=== PATIENT | female | born 1965 | race African-American/Black ===

== ENCOUNTER 2017-03-31 17:50 | Emergency (ER) | payer SELFPAY ==
[2017-03-31 18:00] VITALS: BP 141/79
--- NOTE | 2017-03-31 20:26 | ER Document Report ---
HPI - HPI Pain Level: 3 Context: 52 yo female c/o intermittant left ear pain x 2 mos. also c/o left lower tooth pain. no fever Associated Symptoms: Headache. denies: Fever Exacerbated by: Denies Relieved by: Denies Similar symptoms previously: Yes Recently seen / treated by doctor: Yes - [facility] - REPRODUCTIVE Reproductive: DENIES: : - DERM Skin Color: Normal Past Medical History - General Information source: Patient - Social History Smoking Status: Never Smoker Chew tobacco use (# tins/day): No Frequency of alcohol use: None Drug Abuse: None Lives with: Family Family History: CVA, DM, Hyperlipidemia, Hypertension, Malignancy - Father, Thyroid Disfunction Patient has suicidal ideation: No Patient has homicidal ideation: No - Past Medical History Cardiac Medical History: Reports: Hx Hypercholesterolemia, Hx Hypertension Denies: Hx Heart Murmur Pulmonary Medical History: Reports: Hx Bronchitis Denies: Hx Tuberculosis Neurological Medical History: Reports: Hx Seizures - last 11/2016 Endocrine Medical History: Reports: Hx Diabetes Mellitus Type 2 Renal/ Medical History: Denies: Hx Peritoneal Dialysis Musculoskeltal Medical History: Reports Hx Arthritis Psychiatric Medical History: Reports: Hx Anxiety Denies: Hx Depression Past Surgical History: Reports: Hx Section, Hx Orthopedic Surgery - r shoulder w hardware, Hx Tonsillectomy - Immunizations Immunizations up to date: Yes Hx Diphtheria, Pertussis, Tetanus Vaccination: Yes - 2015 [employer] Provider Document - CONSTITUTIONAL Agree With Documented VS: Yes Exam Limitations: No Limitations General Appearance: WD/WN, No Apparent Distress - INFECTION CONTROL TRAVEL OUTSIDE OF THE [place] IN LAST 30 DAYS: No COUNTRY TRAVEL[facility] HEENT: Atraumatic, PERRLA Mouth Diagram: 1 - pain. no gingival edema appreciated Notes: left EAC mildly edematous. + preauricular tenderness. no postauricular pain. mastoid nontender. left TM dull with + effusion - NECK Neck: Normal Inspection, Supple - RESPIRATORY Respiratory: Breath Sounds Normal, No Respiratory Distress O2 Sat by Pulse Oximetry: 98 - CARDIOVASCULAR Cardiovascular: Regular Rate, Regular Rhythm Course - Re-evaluation Re-evalutation: 03/31/17 20:26 blood pressure slightly elevated. pthas hx/o HTN. taking meds as prescribed . denies JOHNSON, dizziness, chest pain or shortness of breath - Vital Signs Vital signs: Temp Pulse Resp BP Pulse Ox 98.5 F 77 18 141/79 H 98 03/31/17 17:59 03/31/17 17:59 03/31/17 17:59 03/31/17 17:59 03/31/17 17:59 Discharge - Discharge Clinical Impression: Left serous otitis media, Toothache Left otitis externa Qualifiers: Otitis externa type: unspecified type Chronicity: acute Qualified Code(s): H60.502 - Unspecified acute noninfective otitis externa, left ear Condition: Stable Disposition: HOME, SELF-CARE Instructions: Use of Ear Drops ([facility]), Otitis Externa ([facility]), Toothache ([facility]), Antibiotic Therapy ([facility]) Additional Instructions: take medications as prescribed keep ear completely dry x 7 days follow up with primary care if symptoms persist Prescriptions: Neomy Sulf/Polymyx B Sulf/Hc [Cortisporin Otic Susp] 1 drop LFT_EAR TID #1 bottle Penicillin V Potassium [Penicillin Vk 500 mg Tablet] 500 mg PO BID #20 tablet Forms: Elevated Blood Pressure
[2017-03-31] MEDS ORDERED: HYDROCODONE/ACETAMINOPHEN 5-325 MG 6 TAB/DSPK PO PRN (20:27)
== END 2017-03-31 21:10 | disposition home or self-care (01) ==
LOC: ER 17:50
DX: H65.92 Unspecified nonsuppurative otitis media, left ear (principal); H60.502 Unspecified acute noninfective otitis externa, left ear; H92.02 Otalgia, left ear; R51 Headache; K08.89 Other specified disorders of teeth and supporting structures
CPT/HCPCS: 99282

== ENCOUNTER 2017-05-09 11:14 | Emergency (ER) | payer SELFPAY ==
[2017-05-09 11:23] VITALS: BP 153/77
--- NOTE | 2017-05-09 11:59 | ER Document Report ---
HPI - HPI Pain Level: 5 Notes: Patient is a 52-year-old female presents the ED complaining of right forearm pain 6 weeks. Patient states that the pain is sore and worsened with movement and touch. Patient states that on occasion she will drop a plate because of the soreness in her forearm. Patient states that she did start mopping a lot at worship prior to the development of the pain. Which also has been increasing her discomfort. She denies any numbness or tingling. She denies any drug allergies, smoking, or any IV drug use. She has a significant past medical history for hypertension, seizures, diabetes, and cholesterol. Her PCM is [facility]. The pain does not radiate otherwise. She has not been using any conservative measures for her symptoms. Denies any fever, headache, URI, sore throat, chest pain, palpitations, syncope, dyspnea on exertion, cough, wheeze, shortness of breath, abdominal pain, nausea/vomiting/diarrhea, dysuria, muscle paralysis/weakness, or rash. Denies any recent travel, illness, or sick contacts. - ROS Notes: REVIEW OF SYSTEMS: CONSTITUTIONAL : Denies fever, chills, or sweats. Denies recent illness. EENT: Denies eye, ear, throat, or mouth pain or symptoms. Denies nasal or sinus congestion or discharge. Denies throat, tongue, or mouth swelling or difficulty swallowing. CARDIOVASCULAR: Denies chest pain. Denies palpitations or racing or irregular heart beat. Denies ankle edema. RESPIRATORY: Denies cough, cold, or chest congestion. Denies shortness of breath, difficulty breathing, or wheezing. GASTROINTESTINAL: Denies abdominal pain or distention. Denies nausea, vomiting , or diarrhea. Denies blood in vomitus, stools, or per rectum. Denies black, tarry stools. Denies constipation. GENITOURINARY: Denies difficulty urinating, painful urination, burning, frequency, blood in urine, or discharge. MUSCULOSKELETAL: see hpi SKIN: Denies rash, lesions or sores. NEUROLOGICAL: Denies confusion or altered mental status. Denies passing out or loss of consciousness. Denies dizziness or lightheadedness. Denies headache. Denies weakness or paralysis or loss of use of either side. Denies problems with gait or speech. Denies sensory loss, numbness, or tingling. ALL OTHER SYSTEMS REVIEWED AND NEGATIVE. Dictation was performed using [employer] voice recognition software - CARDIOVASCULAR Cardiovascular: DENIES: Chest pain - REPRODUCTIVE Reproductive: DENIES: : - DERM Skin Color: Normal Past Medical History - Social History Smoking Status: Never Smoker Chew tobacco use (# tins/day): No Frequency of alcohol use: None Drug Abuse: None Family History: CVA, DM, Hyperlipidemia, Hypertension, Malignancy - Father, Thyroid Disfunction Patient has suicidal ideation: No Patient has homicidal ideation: No - Past Medical History Cardiac Medical History: Reports: Hx Hypercholesterolemia, Hx Hypertension Denies: Hx Heart Murmur Pulmonary Medical History: Reports: Hx Bronchitis Denies: Hx Tuberculosis Neurological Medical History: Reports: Hx Seizures - last 11/2016 Endocrine Medical History: Reports: Hx Diabetes Mellitus Type 2 Renal/ Medical History: Denies: Hx Peritoneal Dialysis Musculoskeltal Medical History: Reports Hx Arthritis Psychiatric Medical History: Reports: Hx Anxiety Denies: Hx Depression Past Surgical History: Reports: Hx Section, Hx Orthopedic Surgery - r shoulder w hardware, Hx Tonsillectomy - Immunizations Immunizations up to date: Yes Hx Diphtheria, Pertussis, Tetanus Vaccination: Yes - 2015 [facility] Provider Document - CONSTITUTIONAL Agree With Documented VS: Yes Notes: PHYSICAL EXAMINATION: GENERAL: Well-appearing, well-nourished and in no acute distress. NECK: Normal range of motion, supple without lymphadenopathy. Non-tender. Spurling negative. LUNGS: Breath sounds clear to auscultation bilaterally and equal. No wheezes rales or rhonchi. HEART: Regular rate and rhythm without murmurs, rubs, gallops. Musculoskeletal: Rt forearm: FROM to passive/active. Strength 5+/5. + tenderness to resisted supination and wrist extension. + tenderness to palp of lateral epicondyle muscles. No bony tenderness. N/V intact distal. Tinel/ phalen negative. Extremities: No cyanosis, clubbing, or edema b/l. Peripheral pulses 2+. Capillary refill less than 2 seconds. NEUROLOGICAL: Normal speech, normal gait. Normal sensory, motor exams PSYCH: Normal mood, normal affect. SKIN: Warm, Dry, normal turgor, no rashes or lesions noted. - INFECTION CONTROL TRAVEL OUTSIDE OF THE [place] IN LAST 30 DAYS: No COUNTRY TRAVELED TO/FROM: [facility] - RESPIRATORY O2 Sat by Pulse Oximetry: 98 Course - Re-evaluation Re-evalutation: 05/09/17 12:40 Patient is an afebrile, well-hydrated, 52-year-old female presents the ED with right lateral epicondylitis based on H&P today. Vitals are stable. PE otherwise unremarkable with a low suspicion for any sepsis, cellulitis, abscess , or fracture. Low suspicion for any other emergent condition at this time. Reviewed with the patient the etiology and multiple treatment options. Patient opted for the Kenalog lidocaine injection. Pt had improvement of her symptoms s /p injections confirming correct placement. I will also send her home with Voltaren gel to use as directed. Conservative measures otherwise as reviewed. Recheck with her PCM this week. Consider consult with physical therapy/ orthopedics for ongoing worsening symptoms. Return to the ED with any worsening /concerning symptoms otherwise as reviewed in discharge. Patient is in agreement. - Vital Signs Vital signs: Temp Pulse Resp BP Pulse Ox 98.3 F 67 16 153/77 H 98 05/09/17 11:19 05/09/17 11:19 05/09/17 11:19 05/09/17 11:19 05/09/17 11:19 Procedures - Additional Procedures Trigger point injection Time performed: 12:30 Additional Procedures: Other - Kenalog/lidocaine injection to lateral epicondylitis Notes: 05/09/17 12:35 Verbal/written consent obtained Risks and benefits reviewed thoroughly prior to consent Procedure reviewed Skin was cleansed with iodine and alcohol swabs 40 mg of Kenalog mixed with 1.5 mL's of lidocaine 1% without epi injected into the lateral epicondyle area (rt) utliizing a 22g 1.5" needle and 5cc syringe Patient noted improvement in her symptoms Patient tolerated procedure well No complications No blood loss Discharge - Discharge Clinical Impression: Lateral epicondylitis of elbow Qualifiers: Laterality: right Qualified Code(s): M77.11 - Lateral epicondylitis, right elbow Condition: Stable Disposition: HOME, SELF-CARE Additional Instructions: Rest, Ice, Compression, Elevation Tylenol/ibuprofen as needed Light stretches daily Strength exercises as able Moist heat and massage may help F/u with your PCP this week for a recheck Consider consult(s) with Orthopedics/physical therapy for ongoing/worsening symptoms Return to the ED with any worsening pain, swelling, numbness/tingling, muscle weakness, abscess, purulent discharge, red streaks, redness, chest pain, palpitations, shortness of breath, wheezing, abdominal pain, nausea/vomiting/ diarrhea, fever, or any other worsening/concerning symptoms as needed. Prescriptions: Diclofenac Sodium [Voltaren] 4 gm TP QID PRN #100 gel..gm. PRN Reason: Forms: Elevated Blood Pressure Referrals: [facility] [Provider Group] - Follow up as needed [facility] [Provider Group] - Follow up as needed
[2017-05-09] MEDS ORDERED: TRIAMCINOLONE ACETONIDE INJ 40 MG/1 ML VIAL INJ ONE (12:15)
[2017-05-09] MEDS ORDERED: LIDOCAINE 1% INJ-PF (10 MG/ML) 30 ML SDV INJ ONE (12:16)
== END 2017-05-09 12:54 | disposition home or self-care (01) ==
LOC: ER 11:14
PROC: 3E0233Z Introduction of Anti-inflammatory into Muscle, Percutaneous Approach (ICD-10-PCS; principal; 2017-05-09)
PROC: 3E023BZ Introduction of Anesthetic Agent into Muscle, Percutaneous Approach (ICD-10-PCS; 2017-05-09)
DX: M77.11 Lateral epicondylitis, right elbow (principal); E78.00 Pure hypercholesterolemia, unspecified; I10 Essential (primary) hypertension; E11.9 Type 2 diabetes mellitus without complications
CPT/HCPCS: 99283

== ENCOUNTER 2017-06-07 14:16 | Emergency (ER) | payer SELFPAY ==
[2017-06-07 14:30] VITALS: BP 183/89
[2017-06-07] MEDS ORDERED: LIDOCAINE 2% VISCOUS SOLN 20 ML UDCUP PO ONE (15:17)
[2017-06-07] MEDS ORDERED: PENICILLIN V POTASSIUM 500 MG TABLET PO ONE (15:17)
--- NOTE | 2017-06-07 15:25 | ER Document Report ---
ED Oral Problem - General Chief Complaint: Toothache Stated Complaint: TOOTH/MOUTH PAIN Time Seen by Provider: 06/07/17 14:52 Mode of Arrival: Ambulatory Information source: Patient Notes: 52-year-old female presents to ED for dental pain to the left lower jaw tooth # 18. She states she has had pain for 2 days. She had a bad tooth for a while but has not been able to care for it as she does not have any insurance or any money. TRAVEL OUTSIDE OF THE [place] IN LAST 30 DAYS: No COUNTRY TRAVELED TO/FROM: [facility] Patient complains to provider of: Toothache Onset: Other - 2 days Onset: Gradual Quality of pain: Sharp, Throbbing Severity: Severe Pain Level: 5 Swollen jaw/face: Mild Associated symptoms: Jaw pain, Toothache Worsened by: Cold Relieved by: Nothing Similar symptoms previously: Yes Recently seen / treated by doctor/dentist: No - Related Data Allergies/Adverse Reactions: No Known Allergies Allergy (Verified 03/31/17 17:54) Past Medical History - General Information source: Patient - Social History Smoking Status: Never Smoker Cigarette use (# per day): No Chew tobacco use (# tins/day): No Smoking Education Provided: No Frequency of alcohol use: None Drug Abuse: None Lives with: Family Family History: CVA, DM, Hyperlipidemia, Hypertension, Malignancy - Father, Thyroid Disfunction Patient has suicidal ideation: No Patient has homicidal ideation: No - Past Medical History Cardiac Medical History: Reports: Hx Hypercholesterolemia, Hx Hypertension Pulmonary Medical History: Reports: Hx Bronchitis Neurological Medical History: Reports: Hx Seizures - last 11/2016 Endocrine Medical History: Reports: Hx Diabetes Mellitus Type 2 Renal/ Medical History: Reports: Hx Peritoneal Dialysis Malignancy Medical History: Reports: None GI Medical History: Reports: None Musculoskeltal Medical History: Reports Hx Arthritis Skin Medical History: Reports None Psychiatric Medical History: Reports: Hx Anxiety Traumatic Medical History: Reports: None Infectious Medical History: Reports: None Past Surgical History: Reports: Hx Section, Hx Orthopedic Surgery - r shoulder w hardware, Hx Tonsillectomy - Immunizations Immunizations up to date: Yes Hx Diphtheria, Pertussis, Tetanus Vaccination: Yes - 2015 Review of Systems - Review of Systems Constitutional: No symptoms reported EENT: Mouth pain, Dental problem Cardiovascular: No symptoms reported Respiratory: No symptoms reported Gastrointestinal: No symptoms reported Genitourinary: No symptoms reported Female Genitourinary: No symptoms reported Musculoskeletal: No symptoms reported Skin: No symptoms reported Hematologic/Lymphatic: No symptoms reported Neurological/Psychological: No symptoms reported -: Yes All other systems reviewed and negative Physical Exam - Vital signs Vitals: Temp Pulse Resp BP Pulse Ox 98.5 F 74 16 183/89 H 97 06/07/17 14:27 06/07/17 14:27 06/07/17 14:27 06/07/17 14:27 06/07/17 14:27 Interpretation: Normal - General General appearance: Appears well, Alert - HEENT Head: Normocephalic, Atraumatic Eyes: Normal Pupils: PERRL Ears: Normal External canal: Normal Tympanic membrane: Normal Sinus: Normal Nasal: Normal Mouth/Lips: Caries Mucous membranes: Normal Teeth diagram: 1 - Pain to palpation of tooth #18 with mild redness and swelling around the tooth. Mild swelling to the face. Patient states she has had a bad tooth for a while but does not have a dentist or insurance. Instructed patient that she would be better off on clindamycin if she could afford it but patient states she cannot afford clindamycin at this time penicillin was prescribed as patient cannot afford the clindamycin. Pharynx: Normal Neck: Normal - Respiratory Respiratory status: No respiratory distress Chest status: Nontender Breath sounds: Normal Chest palpation: Normal - Cardiovascular Rhythm: Regular Heart sounds: Normal auscultation Murmur: No - Abdominal Inspection: Normal Distension: No distension Bowel sounds: Normal Tenderness: Nontender Organomegaly: No organomegaly - Back Back: Normal, Nontender - Extremities General upper extremity: Normal inspection, Nontender, Normal color, Normal ROM , Normal temperature General lower extremity: Normal inspection, Nontender, Normal color, Normal ROM , Normal temperature, Normal weight bearing. No: Simi's sign - Neurological Neuro grossly intact: Yes Cognition: Normal Orientation: AAOx4 Malini Coma Scale Eye Opening: Spontaneous Malini Coma Scale Verbal: Oriented [place] Coma Scale Motor: Obeys Commands Malini Coma Scale Total: 15 Speech: Normal Motor strength normal: LUE, RUE, LLE, RLE Sensory: Normal - Psychological Associated symptoms: Normal affect, Normal mood - Skin Skin Temperature: Warm Skin Moisture: Dry Skin Color: Normal Course - Re-evaluation Re-evalutation: 06/07/17 18:15 Patient stated she had no insurance and could not afford anything but a medication on the $5 list. Patient instructed that clindamycin would really be better for her situation rotation but patient states she could not afford it and she would not be able to get. Patient was prescribed penicillin and told to return to the ED if the swelling continued or got worse. - Vital Signs Vital signs: Temp Pulse Resp BP Pulse Ox 98.5 F 74 16 183/89 H 97 06/07/17 14:27 06/07/17 14:27 06/07/17 14:27 06/07/17 14:27 06/07/17 14:27 Discharge - Discharge Clinical Impression: Pain due to dental caries Condition: Stable Disposition: HOME, SELF-CARE Additional Instructions: TOOTHACHE: Your pain is due to dental decay. The tooth must be repaired in order for you to feel better. You will, therefore, be referred to a dentist. We do not have dentists on the staff at [facility]. Severe swelling or drainage around a tooth usually means a dental abscess. This also requires evaluation and treatment by the dentist, but antibiotics may be prescribed while awaiting dental treatment. You should be rechecked immediately if you develop major swelling of the face, increasing pain, a lump in the jaw or gums, headache, difficulty swallowing, or fever. PENICILLIN V K: You have been given a prescription for Penicillin VK. Your physician has determined that this is the best antibiotic for your condition. Pen VK can be taken with meals, however more of the antibiotic gets into the bloodstream if it's taken on an empty stomach. Penicillin usually has no side effects. However, allergy to penicillins is common. If you have had an allergic reaction to any drug of the penicillin family, you should never take any other penicillin. Notify your doctor at once if you develop hives, itching, swelling, faintness, or shortness of breath. Ibuprofen Ibuprofen is an excellent, safe drug for pain control. In addition, it has potent antiinflammatory effects which are beneficial, especially in the treatment of injuries, arthritis, or tendonitis. It's best to take ibuprofen with food. Persons with ulcer disease or allergy to aspirin should notify their physician of this before taking ibuprofen. Take the medication exactly as prescribed. Don't take additional doses unless instructed to do so by your doctor. If you develop wheezing, shortness of breath, hives, faintness, stomach pain, vomiting, or dark black stools, return for re-evaluation at once. Please use the lidocaine in the syringes that I have provided for your pain every 3-4 hours. Put a small amount on your finger and rub it on both sides of the gum and tooth. This will numb the areas to be careful not to bite the side of your mouth. FOLLOW-UP CARE: You have been referred for follow-up care to the dentists listed below. Call the dentists office for an appointment as you were instructed or within the next two days. If you experience worsening or a significant change in your symptoms, notify the physician immediately or return to the Emergency Department at any time for re-evaluation. [facility] [address] [place], [place] Wednesday mornings, by appointment [facility] [address] [place] [address] [facility] [address] [facility] [address] [facility] ([facility]) [facility] [address] [facility] [email or web address] [facility] [address] [place] [address] Wednesday- 8:00am to 5:00 pm Will see patients from other [facility]. Charges based on income and family size and accepts Medicare, Medicaid, and Insurances Will pull molars [facility] Student [facility]ics [facility] [address] Hours of Operation 8:00 am - 4:30 pm weekdays The following dental offices accept Medicaid: [facility] Dr. Navarrete Dr. Gaviria Dr. Nielsen Dr. Gonsales David Lai, Maureen, and Domonique oral surgery Dr. Garcia ([place]) Dr. Paez ([place]) [facility] Drs. Morton ([place]) Dr. Farmer ([place]) [facility] Dr. Avila ([place]) Drs. Lockett and ([place]) Medicaid Care Line Prescriptions: Penicillin V Potassium [Penicillin Vk 500 mg Tablet] 500 mg PO BID #20 tablet Forms: Elevated Blood Pressure Referrals: [facility] [Primary Care Provider] - Follow up as needed
== END 2017-06-07 16:08 | disposition home or self-care (01) ==
LOC: ER 14:16
DX: K02.9 Dental caries, unspecified (principal); E78.00 Pure hypercholesterolemia, unspecified; I10 Essential (primary) hypertension; E11.9 Type 2 diabetes mellitus without complications
CPT/HCPCS: 99282; J3490

== ENCOUNTER 2017-07-22 08:29 | Emergency (ER) | payer SELFPAY ==
--- NOTE | 2017-07-22 09:06 | ER Document Report ---
ED General - General Mode of Arrival: Ambulatory Information source: Patient TRAVEL OUTSIDE OF THE [place] IN LAST 30 DAYS: No <JOSSELIN KITCHEN - Last Filed: 07/22/17 12:36> <LIGIA ROSA - Last Filed: 07/22/17 13:52> - General Chief Complaint: Dizziness Stated Complaint: BLOOD PRESSURE CONCERN Time Seen by Provider: 07/22/17 08:45 Notes: Patient is a 52-year-old female who presents to the emergency department today with complaints of dizziness of a 3 day duration. Patient states she noticed her blood pressures have been "out of whack" recently along with her blood glucose levels. Patient states the last blood glucose level result that she has obtained was 265 yesterday, which was after she ate. Patient states she is on Metformin and has been taking her medications as prescribed. (JOSSELIN KITCHEN) - Related Data Allergies/Adverse Reactions: No Known Allergies Allergy (Verified 03/31/17 17:54) Past Medical History - General Information source: Patient - Social History Smoking Status: Never Smoker Cigarette use (# per day): No Frequency of alcohol use: None Drug Abuse: None Lives with: Family Family History: Reviewed & Not Pertinent, CVA, DM, Hyperlipidemia, Hypertension , Malignancy - Father, Thyroid Disfunction - Past Medical History Cardiac Medical History: Reports: Hx Hypercholesterolemia, Hx Hypertension Pulmonary Medical History: Reports: Hx Bronchitis Neurological Medical History: Reports: Hx Seizures - last 11/2016 Endocrine Medical History: Reports: Hx Diabetes Mellitus Type 2 Musculoskeltal Medical History: Reports Hx Arthritis Psychiatric Medical History: Reports: Hx Anxiety Past Surgical History: Reports: Hx Section, Hx Orthopedic Surgery - r shoulder w hardware, Hx Tonsillectomy - Immunizations Immunizations up to date: Yes Hx Diphtheria, Pertussis, Tetanus Vaccination: Yes - 2015 <JOSSELIN KITCHEN - Last Filed: 07/22/17 12:36> Review of Systems - Review of Systems Constitutional: See HPI, Other - elevated BGLs EENT: No symptoms reported Cardiovascular: See HPI, Dizziness, Other - "blood pressure problem" Respiratory: No symptoms reported Gastrointestinal: No symptoms reported Genitourinary: No symptoms reported Female Genitourinary: No symptoms reported Musculoskeletal: No symptoms reported Skin: No symptoms reported Hematologic/Lymphatic: No symptoms reported Neurological/Psychological: No symptoms reported -: Yes All other systems reviewed and negative <JOSSELIN KITCHEN - Last Filed: 07/22/17 12:36> Physical Exam - Vital signs Interpretation: Normal - General General appearance: Appears well, Alert - HEENT Head: Normocephalic, Atraumatic Eyes: Normal Extraocular movements intact: Yes Pupils: PERRL - Respiratory Respiratory status: No respiratory distress Chest status: Tender - left anterior chest wall Breath sounds: Normal Chest palpation: Normal - Cardiovascular Rhythm: Regular Heart sounds: Normal auscultation Murmur: No Systolic murmur grade 1-6: 2 - Abdominal Inspection: Normal Distension: No distension Bowel sounds: Normal Tenderness: Nontender Organomegaly: No organomegaly - Back Back: Normal, Nontender - Extremities General upper extremity: Normal inspection, Normal ROM, Normal strength. No: Edema General lower extremity: Normal inspection, Normal ROM, Normal strength. No: Edema - Neurological Neuro grossly intact: Yes Cognition: Normal Orientation: AAOx4 [place] Coma Scale Eye Opening: Spontaneous [place] Coma Scale Verbal: Oriented [place] Coma Scale Motor: Obeys Commands [place] Coma Scale Total: 15 Speech: Normal - Psychological Associated symptoms: Normal affect, Normal mood - Skin Skin Temperature: Warm Skin Moisture: Dry Skin Color: Normal <JOSSELIN KITCHEN - Last Filed: 07/22/17 12:36> <LIGIA ROSA - Last Filed: 07/22/17 13:52> - Vital signs Vitals: Temp Pulse BP Pulse Ox 98.5 F 74 177/82 H 95 07/22/17 08:34 07/22/17 08:34 07/22/17 08:34 07/22/17 08:34 - HEENT Notes: Lateral gaze nystagmus consistent with vertigo (JOSSELIN KITCHEN) Course - Laboratory Result Diagrams: 07/22/17 09:06 07/22/17 09:06 <JOSSELIN KITCHEN - Last Filed: 07/22/17 12:36> - Laboratory Result Diagrams: 07/22/17 09:06 07/22/17 09:06 - EKG Interpretation by [place] EKG shows normal: Sinus rhythm, [place], Intervals, QRS Complexes, ST-T Waves Rate: Normal - 68 Rhythm: NSR [place]/QRS: LBBB When compared to previous EKG there are: No significant change <LIGIA ROSA - Last Filed: 07/22/17 13:52> - Re-evaluation Re-evalutation: 07/22/17 13:48 The patient is a little drowsy from the medicine at this time. The nystagmus noted previously is gone. I had the patient sit up and look up and down left and right and she reports that the dizziness is much improved from last time she tried this. The patient's blood sugars are running a little high, she takes metformin 500 mg twice a day. We will stop this and start her on metformin 850 mg twice a day. She does have an appointment at the [facility] next week so they will be able to check her sugars and decide about metformin dosing for the future. (LIGIA ROSA) - Vital Signs Vital signs: Temp Pulse Resp BP Pulse Ox 98.5 F 70 16 152/88 H 97 07/22/17 08:34 07/22/17 09:48 07/22/17 11:04 07/22/17 11:04 07/22/17 11:04 - Laboratory Laboratory results interpreted by me: 07/22/17 07/22/17 07/22/17 09:06 09:06 09:06 RDW 16.2 H Glucose 203 H Hemoglobin A1c % 7.6 H Calcium 10.8 H Total Protein 8.4 H Phenytoin 07/22/17 10:47 RDW Glucose Hemoglobin A1c % Calcium Total Protein Phenytoin < 3.0 L Discharge <JOSSELIN KITCHEN - Last Filed: 07/22/17 12:36> <LIGIA ROSA - Last Filed: 07/22/17 13:52> - Discharge Clinical Impression: Vertigo, Subtherapeutic serum dilantin level Hyperglycemia due to type 2 diabetes mellitus Qualifiers: Diabetes mellitus exterminator termite insulin use: without correction use Qualified Code(s ): E11.65 - Type 2 diabetes mellitus with hyperglycemia Condition: Stable Disposition: HOME, SELF-CARE Additional Instructions: Vertigo: You have experienced an episode of vertigo -- a whirling dizziness which may be accompanied by nausea and vomiting or staggering. Vertigo is often caused by an irritation of the inner ear, in which case it is called labyrinthitis. It can also be a symptom of a degenerating inner ear, nerve damage, or brain injury. Your physician has evaluated you to determine whether any further testing is necessary. Vertigo is often treated with dramamine or meclizine. These medications are helpful, but stronger medication may be needed if you are vomiting. Rest in bed. You should not drive or operate machinery until completely better. It may take one to three weeks for recovery. If there are new symptoms, such as decreased hearing or vision, severe headache, weakness or faintness, or confusion, call the physician. Take medication as prescribed for the vertigo. Rest and take fall precautions until the dizziness has completely cleared up. Do not drive while you are experiencing the dizziness. Stop your present metformin medication and start the new dosage that is prescribed today. Your Dilantin level was undetectable. Be sure to take your medication if Dilantin is the seizure medicine that you were taking. [facility]. RETURN TO THE EMERGENCY ROOM IF ANY NEW OR WORSENING SYMPTOMS. Prescriptions: Meclizine HCl [Antivert 25 mg Tablet] 25 mg PO TID PRN #20 tablet PRN Reason: Metformin HCl [Glucophage] 850 mg PO BID #60 tablet Scribe Attestation: 07/22/17 13:51 I personally performed the services described in the documentation, reviewed and edited the documentation which was dictated to the scribe in my presence, and it accurately records my words and actions. (LIGIA ROSA) Scribe Documentation - Scribe Written by Christina:: Christina Guidry, 07/22/2017, 1246 acting as scribe for :: Bird <JOSSELIN KITCHEN - Last Filed: 07/22/17 12:36>
[2017-07-22 09:21] LABS: ABSOLUTE EOSINOPHILS # (AUTO) 0.1 10^3/uL (0.0-0.6); ABSOLUTE LYMPHOCYTES (AUTO) 1.8 10^3/uL (0.5-4.7); ABSOLUTE MONOCYTES (AUTO) 0.4 10^3/uL (0.1-1.4); ABSOLUTE NEUT (AUTO) 2.9 10^3/uL (1.7-8.2); BASOPHILS % (AUTO) 0.9 % (0-2); EOSINOPHILS % (AUTO) 1.2 % (0-6); HEMATOCRIT 43.5 % (36.0-47.0); HEMOGLOBIN 14.7 g/dL (12.0-15.5); HGB HCT DIFFERENCE 0.6; LYMPHOCYTES % (AUTO) 35.1 % (13-45); MEAN CORPUSCULAR HEMOGLOBIN 29.5 pg (27.0-33.4); MEAN CORPUSCULAR HGB CONC 33.8 g/dL (32.0-36.0); MEAN CORPUSCULAR VOLUME 87 fl (80-97); MONOCYTES % (AUTO) 6.8 % (3-13); RED BLOOD COUNT 4.98 10^6/uL (3.72-5.28); RED CELL DISTRIBUTION WIDTH 16.2 % (11.5-14.0); WHITE BLOOD COUNT 5.2 10^3/uL (4.0-10.5)
[2017-07-22 09:49] LABS: ALANINE AMINOTRANSFERASE 22 U/L (9-52); ALBUMIN 4.7 g/dL (3.5-5.0); ALKALINE PHOSPHATASE 101 U/L (38-126); ANION GAP 12 (5-19); ASPARTATE AMINO TRANSFERASE 17 U/L (14-36); BILIRUBIN,DIRECT 0.4 mg/dL (0.0-0.4); BILIRUBIN,TOTAL 0.6 mg/dL (0.2-1.3); BLOOD UREA NITROGEN 16 mg/dL (7-20); CALCIUM 10.8 mg/dL (8.4-10.2); CARBON DIOXIDE 30 mmol/L (22-30); CHLORIDE 100 mmol/L (98-107); CREATINE KINASE 42 U/L (30-135); CREATININE RESULT 0.73 mg/dL (0.52-1.25); GLUCOSE 203 mg/dL (75-110); POTASSIUM 4.1 mmol/L (3.6-5.0); TOTAL PROTEIN 8.4 g/dL (6.3-8.2)
[2017-07-22] MEDS ORDERED: MECLIZINE HCL 25 MG TABLET PO ONE (11:52)
[2017-07-22] MEDS ORDERED: PHENYTOIN SODIUM INJ/PF 250 MG/5 ML SDV IV ONE (11:53)
[2017-07-22 14:24] VITALS: BP 150/81
--- NOTE | 2017-07-23 11:14 | EKG REPORT ---
SEVERITY:- ABNORMAL ECG - SINUS RHYTHM LEFT BUNDLE BRANCH BLOCK : Confirmed by: Gogo Noe MD 23-Jul-2017 11:14:13
== END 2017-07-22 14:30 | disposition home or self-care (01) ==
LOC: ER 08:29
DX: R42 Dizziness and giddiness (principal); R79.1 Abnormal coagulation profile; E11.65 Type 2 diabetes mellitus with hyperglycemia; E78.00 Pure hypercholesterolemia, unspecified; I10 Essential (primary) hypertension
CPT/HCPCS: 93005; 99284; 96374; 36415; 82550; 80185; 85025; 80053; 84484; 83036; 93010; J1165

== ENCOUNTER 2018-03-28 09:00 | Emergency (ER) | payer SELFPAY ==
[2018-03-28] MEDS ORDERED: ASPIRIN 81 MG TABLET, CHEWABLE PO ONE (10:02)
[2018-03-28 10:37] LABS: ABSOLUTE EOSINOPHILS # (AUTO) 0.1 10^3/uL (0.0-0.6); ABSOLUTE MONOCYTES (AUTO) 0.3 10^3/uL (0.1-1.4); ABSOLUTE NEUT (AUTO) 3.2 10^3/uL (1.7-8.2); BASOPHILS % (AUTO) 0.4 % (0-2); EOSINOPHILS % (AUTO) 1.4 % (0-6); HEMATOCRIT 39.3 % (36.0-47.0); HEMOGLOBIN 13.4 g/dL (12.0-15.5); LYMPHOCYTES % (AUTO) 35.9 % (13-45); MEAN CORPUSCULAR HEMOGLOBIN 29.9 pg (27.0-33.4); MEAN CORPUSCULAR VOLUME 88 fl (80-97); PLATELET COUNT 262 10^3/uL (150-450); RED BLOOD COUNT 4.47 10^6/uL (3.72-5.28); RED CELL DISTRIBUTION WIDTH 15.9 % (11.5-14.0); SEGMENTED NEUTROPHILS % (AUTO) 56.3 % (42-78); TOTAL CELLS COUNTED % (AUTO) 100 %; WHITE BLOOD COUNT 5.7 10^3/uL (4.0-10.5)
--- NOTE | 2018-03-28 10:51 | ER Document Report ---
ED Medical Screen (RME) - General Chief Complaint: Chest Pain > 30 Stated Complaint: CHEST PAIN, ARM NUMBNESS, SHORTNESS OF BREATH Time Seen by Provider: 03/28/18 10:02 Mode of Arrival: Ambulatory Information source: Patient Notes: 53-year-old female history of hypertension hyperlipidemia diabetes presents with complaints of chest pain as well as left arm pain and numbness. Patient denies any similar episode, last stress test 5 years ago. I have greeted and performed a rapid initial assessment of this patient. A comprehensive ED assessment and evaluation of the patient, analysis of test results and completion of the medical decision making process will be conducted by additional ED providers. PHYSICAL EXAMINATION: GENERAL: Well-appearing, well-nourished and in no acute distress. HEAD: Atraumatic, normocephalic. EYES: Pupils equal round extraocular movements intact, conjunctiva are normal. ENT: Nares patent NECK: Normal range of motion LUNGS: No respiratory distress Musculoskeletal: Normal range of motion NEUROLOGICAL: Normal speech, normal gait. PSYCH: Normal mood, normal affect. SKIN: Warm, Dry, normal turgor, no rashes or lesions noted. TRAVEL OUTSIDE OF THE [place] IN LAST 30 DAYS: No COUNTRY TRAVELED TO/FROM: [facility] - Related Data Allergies/Adverse Reactions: No Known Allergies Allergy (Verified 03/28/18 09:01) Past Medical History - Social History Frequency of alcohol use: None Drug Abuse: None - Past Medical History Cardiac Medical History: Reports: Hx Hypercholesterolemia, Hx Hypertension Denies: Hx Heart Murmur Pulmonary Medical History: Reports: Hx Bronchitis Denies: Hx Tuberculosis Neurological Medical History: Reports: Hx Seizures - last 11/2016 Endocrine Medical History: Reports: Hx Diabetes Mellitus Type 2 Renal/ Medical History: Denies: Hx Peritoneal Dialysis Musculoskeltal Medical History: Reports Hx Arthritis Psychiatric Medical History: Reports: Hx Anxiety Denies: Hx Depression Past Surgical History: Reports: Hx Section, Hx Orthopedic Surgery - r shoulder w hardware, Hx Tonsillectomy - Immunizations Immunizations up to date: Yes Hx Diphtheria, Pertussis, Tetanus Vaccination: Yes - 2015 Physical Exam - Vital signs Vitals: Temp Pulse Resp BP Pulse Ox 98.1 F 64 16 147/82 H 100 03/28/18 09:13 03/28/18 09:13 03/28/18 09:13 03/28/18 09:13 03/28/18 09:13 Course - Vital Signs Vital signs: Temp Pulse Resp BP Pulse Ox 98.1 F 64 16 147/82 H 100 03/28/18 09:13 03/28/18 09:13 03/28/18 09:13 03/28/18 09:13 03/28/18 09:13
[2018-03-28 11:00] LABS: ALANINE AMINOTRANSFERASE 20 U/L (9-52); ALBUMIN 4.2 g/dL (3.5-5.0); ALKALINE PHOSPHATASE 100 U/L (38-126); ANION GAP 11 (5-19); ASPARTATE AMINO TRANSFERASE 23 U/L (14-36); BILIRUBIN,DIRECT 0.4 mg/dL (0.0-0.4); BILIRUBIN,TOTAL 0.4 mg/dL (0.2-1.3); BLOOD UREA NITROGEN 16 mg/dL (7-20); CALCIUM 10.1 mg/dL (8.4-10.2); CARBON DIOXIDE 32 mmol/L (22-30); CHLORIDE 102 mmol/L (98-107); CREATINE KINASE 61 U/L (30-135); GLUCOSE 177 mg/dL (75-110); POTASSIUM 3.7 mmol/L (3.6-5.0); SODIUM 145.3 mmol/L (137-145)
[2018-03-28 11:12] LABS: CREATINE KINASE MB 0.46 ng/mL (<4.55)
--- NOTE | 2018-03-28 11:12 | RADIOLOGY REPORT (SQ) ---
EXAM DESCRIPTION: CHEST SINGLE VIEW COMPLETED DATE/TIME: 03/28/2018 10:59 am REASON FOR STUDY: chest pain COMPARISON: 07/15/2015 EXAM PARAMETERS: NUMBER OF VIEWS: One view. TECHNIQUE: Single frontal radiographic view of the chest acquired. RADIATION DOSE: NA LIMITATIONS: None. FINDINGS: LUNGS AND PLEURA: No opacities, masses or pneumothorax. No pleural effusion. MEDIASTINUM AND HILAR STRUCTURES: No masses. Contour normal. HEART AND VASCULAR STRUCTURES: Heart normal in size. Normal vasculature. BONES: No acute findings. HARDWARE: None in the chest. OTHER: No other significant finding. IMPRESSION: NO ACUTE RADIOGRAPHIC FINDING IN THE CHEST. TECHNICAL DOCUMENTATION: JOB ID: [id number] [employer]- All Rights Reserved Reading location - IP/workstation name: [email or web address]
[2018-03-28 11:13] LABS: TROPONIN I < 0.012 ng/mL
--- NOTE | 2018-03-28 11:24 | ER Document Report ---
ED Cardiac - General Chief Complaint: Chest Pain > 30 Stated Complaint: CHEST PAIN, ARM NUMBNESS, SHORTNESS OF BREATH Time Seen by Provider: 03/28/18 10:02 Mode of Arrival: Ambulatory Notes: Patient says that she has been experiencing sharp pains in the left anterior chest and into her left arm since yesterday afternoon. She was watching television when the symptoms began. Has not had any unusual activity or falling or injury. Has never had these symptoms before. She says her left arm also feels numb. The symptoms have been going on since yesterday afternoon and continued today. Patient says she is somewhat short of breath. Has been nauseated but denies any vomiting. No history of heart disease, but told she has a heart murmur a couple of years ago. No recent illness or fevers. No pain or swelling of either leg. No history of blood clots. TRAVEL OUTSIDE OF THE [place] IN LAST 30 DAYS: No COUNTRY TRAVELED TO/FROM: [facility] - Related Data Allergies/Adverse Reactions: No Known Allergies Allergy (Verified 03/28/18 11:39) Past Medical History - General Information source: Patient - Social History Smoking Status: Never Smoker Frequency of alcohol use: None Drug Abuse: None Family History: Reviewed & Not Pertinent, CVA, DM, Hyperlipidemia, Hypertension , Malignancy - Father, Thyroid Disfunction Patient has suicidal ideation: No Patient has homicidal ideation: No - Past Medical History Cardiac Medical History: Reports: Hx Hypercholesterolemia, Hx Hypertension, Hx Heart Murmur Pulmonary Medical History: Reports: Hx Bronchitis Neurological Medical History: Reports: Hx Seizures - Told stress related, having started when her 2011. On Dilantin Endocrine Medical History: Reports: Hx Diabetes Mellitus Type 2 Musculoskeltal Medical History: Reports Hx Arthritis Psychiatric Medical History: Reports: Hx Anxiety, Other - Denies stress at this time. Denies: Hx Depression Past Surgical History: Reports: Hx Section, Hx Orthopedic Surgery - r shoulder w hardware, Hx Tonsillectomy - Immunizations Immunizations up to date: Yes Hx Diphtheria, Pertussis, Tetanus Vaccination: Yes - 2015 Review of Systems - Review of Systems Notes: REVIEW OF SYSTEMS: CONSTITUTIONAL : Denies fever. EENT: Denies eye, ear, nose or mouth or throat pain or other symptoms. CARDIOVASCULAR: See HPI. Hurts to move or press on her chest. RESPIRATORY: Denies cough, chest congestion, but some shortness of breath. GASTROINTESTINAL: Denies abdominal pain or nausea, vomiting, or diarrhea. GENITOURINARY: Denies difficulty or painful urinating, urinary frequency, blood in urine. MUSCULOSKELETAL: Denies back or neck pain. Denies joint pain or swelling. SKIN: Denies rash or skin lesions. NEUROLOGICAL: Denies LOC or altered mental status. Denies headache. Denies sensory loss or motor deficits. ALL OTHER SYSTEMS REVIEWED AND NEGATIVE. Physical Exam - Vital signs Vitals: Temp Pulse Resp BP Pulse Ox 98.1 F 64 16 147/82 H 100 03/28/18 09:13 03/28/18 09:13 03/28/18 09:13 03/28/18 09:13 03/28/18 09:13 Interpretation: Hypertensive - Minimal - Notes Notes: PHYSICAL EXAMINATION: GENERAL: Well-appearing, in no acute distress. Vital signs all essentially normal. Patient seems to need to be somewhat depressed. HEAD: Atraumatic, normocephalic. EYES: Pupils equal round and reactive to light, extraocular movements intact. ENT: oropharynx clear without exudates. Moist mucous membranes. NECK: Normal range of motion, supple. LUNGS: Breath sounds clear and equal bilaterally. HEART: Regular rate and rhythm without murmurs. Definite significant tenderness to press on the substernal and left anterior chest and patient says that is the sharp pain that she has been experiencing. ABDOMEN: Soft, nontender. No guarding or rebound. No masses. BACK: No tenderness throughout entire back. EXTREMITIES: Normal range of motion without pain. Negative Homans bilaterally. NEUROLOGICAL: Normal speech, normal gait. Normal sensory, motor, and reflex exams. Awake, alert, and oriented x3. Cranial nerves normal. PSYCH: Normal mood, normal affect. SKIN: Warm, dry, no rashes. Course - Re-evaluation Re-evalutation: 03/28/18 12:41 Patient has a left bundle branch block but it has been present on previous EKGs. Remainder of her workup is essentially normal. The only finding of significance is definite chest wall tenderness to press on the left anterior chest region. No swelling or other symptoms involving the left upper extremity. I wonder if the patient may be depressed or stressed, but she denies the latter. I am going to treat her for chest wall pain with a muscle relaxer and Tylenol. - Vital Signs Vital signs: Temp Pulse Resp BP Pulse Ox 98.1 F 62 16 173/89 H 98 03/28/18 09:13 03/28/18 10:54 03/28/18 10:54 03/28/18 10:54 03/28/18 10:54 - Laboratory Result Diagrams: 03/28/18 10:23 03/28/18 10:23 Laboratory results interpreted by me: 03/28/18 03/28/18 10:23 10:23 RDW 15.9 H Sodium 145.3 H Carbon Dioxide 32 H Glucose 177 H - Diagnostic Test Radiology results interpreted by me: 03/28/18 11:30 Chest x-ray is normal. - EKG Interpretation by [place] EKG shows normal: Sinus rhythm Rate: Normal [place]/QRS: LBBB - Known, old condition previously there Discharge - Discharge Clinical Impression: Chest wall pain Condition: Stable Disposition: HOME, SELF-CARE Additional Instructions: CHEST PAIN OF UNCLEAR CAUSE: The exact cause of your chest pain isn't clear. Fortunately, there is no evidence of a dangerous medical condition. Further testing may be required to find the source of the pain. Most often, we find that this pain is coming from the chest wall -- the muscles or rib joints in the chest. But chest pain can come from the lung and lung lining, the esophagus, the heart valves or heart lining, and even the stomach or gallbladder. Rest. Eat lightly until the pain is gone. We may prescribe medicine for pain and inflammation. You should call the physician immediately if the pain radiates to the shoulder, jaw or arms; if you start to run a fever or develop a cough; or if you develop shortness of breath, or other new or alarming symptoms. NORMAL EXAM AND WORKUP: At this time, your examination and workup show no significant abnormality. You have a left bundle branch block of your heart, but this was present on a previous EKG last fall. It is unlikely it is having any causing her current symptoms. No significant abnormal physical findings were noted. All laboratory , and imaging (x-ray, CT scans, ultrasound) studies that were ordered show no significant abnormality. Although your examination and all studies that were ordered showed no significant abnormal finding, there are no examinations and no studies that are 100% accurate. There is always the possibility that some abnormality could exist and not be detected with physical examination or within the limits and capabilities of laboratory and other studies. You should return or follow up as you were instructed on your visit today for further evaluation if your symptoms do not resolve. CHEST WALL PAIN: Your chest pain may be coming from the chest wall. This is often caused by straining the muscles or joints in the chest during physical activity, direct trauma, coughing, or vigorous vomiting. Persons with arthritis are especially prone to this type of pain, due to inflammation of the cartilage joints near the breast bone. Occasionally, no cause can be found. Rest from strenuous physical activity. This kind of chest pain is usually made worse by movement of the chest. Depending on the symptoms, we may prescribe medicine for pain, muscle relaxation, and antiinflammatory effects. If the pain is new, and seems to be due to muscle strain, cold packs can help. Otherwise, apply gentle warmth to the painful area for 15 minutes every hour or two. You should call contact the doctor immediately if things change. Further evaluation is needed if you develop a fever or cough, if the nature of the pain changes, or if you become short of breath. ASPIRIN: Aspirin has been shown to have a beneficial effect on blood circulation by reducing the clotting effect of platelets in the blood. These beneficial effects can be achieved by taking just a single baby (81 mg) aspirin a day. It is recommended that any person over the age of forty take a single baby aspirin every day for heart and brain circulation, unless you are allergic to aspirin or have some significant bleeding disorder. It is strongly recommended that people who have proven cardiac or blood circulation disturbances should take a baby aspirin every day. Muscle Relaxers Muscle relaxing medications are usually prescribed for acute muscle spasm or injury to the neck and back. They are often combined with antiinflammatory pain medication for increased relief. You may stop the muscle relaxer when the pain and stiffness have improved. Start the medication again if spasms recur. Muscle relaxers may cause drowsiness, especially with the first dose. Do not operate machinery or drive while under the effects of the medication. Most muscle relaxers last up to 24 hours. Do not combine the medication with alcohol. USE OF ACETAMINOPHEN (Tylenol): Acetaminophen may be taken for pain relief or fever control. It's much safer than aspirin, offering a wider range of "safe" dosages. It is safe during . Some brand names are Tylenol, Panadol, Datril, Anacin 3, Tempra, and Liquiprin. Acetaminophen can be repeated every four hours. The following are maximum recommended dosages: WEIGHT Dose Drops Elixir Chewable( 80mg) (LBS.) drprs=droppers tsp=teaspoon >89 pounds or adults 650 mg to 900 mg Acetaminophen can be repeated every four hours. Maximum dose not to exceed 4000 mg a day. These maximum recommended dosages are slightly higher than the dosages written on the product container, but these dosages are very safe and below the toxic dosage for acetaminophen. FOLLOW-UP CARE: If you have been referred to a physician for follow-up care, call the physician s office for an appointment as you were instructed or within the next two days. If you experience worsening or a significant change in your symptoms, notify the physician immediately or return to the Emergency Department at any time for re-evaluation. Follow-Up at the [facility]. Return at anytime for reevaluation if you develop new or worsening symptoms. Prescriptions: Methocarbamol [Robaxin 500 mg Tablet] 1,000 mg PO TID #30 tablet
[2018-03-28] MEDS ORDERED: ACETAMINOPHEN 325 MG TABLET PO ONE (11:46)
[2018-03-28 13:04] VITALS: BP 161/80
--- NOTE | 2018-03-28 13:29 | EKG REPORT ---
SEVERITY:- ABNORMAL ECG - SINUS RHYTHM LEFT BUNDLE BRANCH BLOCK : Confirmed by: Sudhir Golden MD 28-Mar-2018 13:28:59
== END 2018-03-28 13:01 | disposition home or self-care (01) ==
LOC: ER 09:00
DX: R07.89 Other chest pain (principal); R20.0 Anesthesia of skin; R06.02 Shortness of breath; M79.602 Pain in left arm; R11.0 Nausea; I10 Essential (primary) hypertension; E11.9 Type 2 diabetes mellitus without complications
CPT/HCPCS: 36415; 71045; 80053; 82550; 82553; 84484; 85025; 93005; 93010; 99285

== ENCOUNTER → 2018-04-08 | Outpatient (CLI) | payer OTHER ==
[2018-04-08 10:15] LABS: ABSOLUTE EOSINOPHILS # (AUTO) 0.1 10^3/uL (0.0-0.6); ABSOLUTE LYMPHOCYTES (AUTO) 2.1 10^3/uL (0.5-4.7); ABSOLUTE MONOCYTES (AUTO) 0.3 10^3/uL (0.1-1.4); ABSOLUTE NEUT (AUTO) 3.2 10^3/uL (1.7-8.2); BASOPHILS % (AUTO) 0.3 % (0-2); EOSINOPHILS % (AUTO) 1.8 % (0-6); HEMATOCRIT 37.2 % (36.0-47.0); HEMOGLOBIN 12.7 g/dL (12.0-15.5); LYMPHOCYTES % (AUTO) 36.5 % (13-45); MEAN CORPUSCULAR HEMOGLOBIN 29.6 pg (27.0-33.4); MEAN CORPUSCULAR HGB CONC 34.1 g/dL (32.0-36.0); MEAN CORPUSCULAR VOLUME 87 fl (80-97); MONOCYTES % (AUTO) 5.6 % (3-13); PLATELET COUNT 295 10^3/uL (150-450); RED BLOOD COUNT 4.28 10^6/uL (3.72-5.28); RED CELL DISTRIBUTION WIDTH 15.9 % (11.5-14.0); SEGMENTED NEUTROPHILS % (AUTO) 55.8 % (42-78); TOTAL CELLS COUNTED % (AUTO) 100 %; WHITE BLOOD COUNT 5.7 10^3/uL (4.0-10.5)
[2018-04-08 10:51] LABS: ALANINE AMINOTRANSFERASE 24 U/L (9-52); ALBUMIN 4.3 g/dL (3.5-5.0); ALKALINE PHOSPHATASE 94 U/L (38-126); ANION GAP 10 (5-19); ASPARTATE AMINO TRANSFERASE 17 U/L (14-36); BILIRUBIN,DIRECT 0.4 mg/dL (0.0-0.4); BILIRUBIN,TOTAL 0.5 mg/dL (0.2-1.3); BLOOD UREA NITROGEN 15 mg/dL (7-20); CALCIUM 10.6 mg/dL (8.4-10.2); CARBON DIOXIDE 28 mmol/L (22-30); CHLORIDE 107 mmol/L (98-107); CHOLESTEROL 265.12 mg/dL (0-200); GLUCOSE 116 mg/dL (75-110); POTASSIUM 5.3 mmol/L (3.6-5.0); SODIUM 144.8 mmol/L (137-145); TOTAL PROTEIN 7.7 g/dL (6.3-8.2); TRIGLYCERIDES 110 mg/dL (<150)
[2018-04-08 11:02] LABS: DIRECT LDL 151 mg/dL (<100)
== END ==
LOC: CCC 08:58
DX: Z00.00 Encounter for general adult medical examination without abnormal findings (principal)
CPT/HCPCS: 36415; 80053; 80061; 83036; 84443; 85025

== ENCOUNTER → 2018-04-12 | Outpatient (CLI) | payer OTHER | LOC: CCC 07:42 | DX: E87.6 Hypokalemia (principal) | CPT/HCPCS: 36415; 84132 ==

== ENCOUNTER 2018-07-14 16:13 | Emergency (ER) | payer SELFPAY ==
[2018-07-14 16:26] VITALS: BP 148/70
--- NOTE | 2018-07-14 16:32 | ER Document Report ---
HPI - HPI Patient complains to provider of: Foot pain Onset: Other - 2 weeks Pain Level: 4 Context: 53-year-old female complaining of right plantar heel pain for 2 weeks. Hurts when she walks on it 10/05. No injury. Associated Symptoms: None Exacerbated by: Walking Relieved by: Denies Similar symptoms previously: No Recently seen / treated by doctor: No - ROS ROS below otherwise negative: Yes Systems Reviewed and Negative: Yes All other systems reviewed and negative - REPRODUCTIVE Reproductive: DENIES: : Past Medical History - General Information source: Patient - Social History Smoking Status: Never Smoker Lives with: Family Family History: Reviewed & Not Pertinent, CVA, DM, Hyperlipidemia, Hypertension , Malignancy - Father, Thyroid Disfunction - Past Medical History Cardiac Medical History: Reports: Hx Hypercholesterolemia, Hx Hypertension, Hx Heart Murmur Pulmonary Medical History: Reports: Hx Bronchitis Neurological Medical History: Reports: Hx Seizures - Told stress related, having started when her 2011. On Dilantin Endocrine Medical History: Reports: Hx Diabetes Mellitus Type 2 Musculoskeletal Medical History: Reports Hx Arthritis Psychiatric Medical History: Reports: Hx Anxiety Past Surgical History: Reports: Hx Section, Hx Orthopedic Surgery - r shoulder w hardware, Hx Tonsillectomy - Immunizations Immunizations up to date: Yes Hx Diphtheria, Pertussis, Tetanus Vaccination: Yes - 2016 Vertical Provider Document - CONSTITUTIONAL Agree With Documented VS: Yes Exam Limitations: No Limitations - INFECTION CONTROL TRAVEL OUTSIDE OF THE [place] IN LAST 30 DAYS: No - MUSCULOSKELETAL/EXTREMETIES Musculoskeletal/Extremeties: MAEW, FROM, Tender - plantar right foot at the heel , tender heel squeeze, achilles intact, non tender - NEURO Level of Consciousness: Awake, Alert Motor/Sensory: No Motor Deficit, No Sensory Deficit - DERM Integumentary: No Rash Course - Re-evaluation Re-evalutation: 07/14/18 17:06 Calcaneal spur on x-ray per rad - Vital Signs Vital signs: Temp Pulse Resp BP Pulse Ox 98.9 F 71 18 148/70 H 99 07/14/18 16:22 07/14/18 16:22 07/14/18 16:22 07/14/18 16:22 07/14/18 16:22 Discharge - Discharge Clinical Impression: Plantar fasciitis Heel spur Qualifiers: Laterality: right Qualified Code(s): M77.31 - Calcaneal spur, right foot Condition: Good Disposition: HOME, SELF-CARE Instructions: Use of Crutches ([facility]), Ibuprofen (General) ([facility]), Plantar Fasciitis or Heel Spur ([facility]) Additional Instructions: Crutches to rest the heel See the field technical support consultant Motrin 600mg 3 times a day for inflammation and pain Tylenol up to 4000 mg a day for pain Prescriptions: Ibuprofen [Motrin 600 mg Tablet] 600 mg PO Q8HP PRN #30 tablet PRN Reason: Referrals: LARISA TAN DPM [ACTIVE STAFF] - Follow up as needed CHRIS ROBB DPM [ACTIVE STAFF] - Follow up as needed
--- NOTE | 2018-07-14 16:50 | RADIOLOGY REPORT (SQ) ---
EXAM DESCRIPTION: FOOT RIGHT COMPLETE COMPLETED DATE/TIME: 07/14/2018 4:38 pm REASON FOR STUDY: heel pain COMPARISON: None. NUMBER OF VIEWS: Three views. TECHNIQUE: AP, lateral and oblique radiographic images acquired of the right foot. LIMITATIONS: None. FINDINGS: MINERALIZATION: Normal. BONES: No fracture or dislocation. Dorsal and plantar calcaneal spurs. JOINTS: No effusions. SOFT TISSUES: No soft tissue swelling. No foreign body. OTHER: No other significant finding. IMPRESSION: Calcaneal spurs. No acute abnormality. TECHNICAL DOCUMENTATION: JOB ID: [id number] [employer]- All Rights Reserved Reading location - IP/workstation name: [email or web address]
== END 2018-07-14 17:18 | disposition home or self-care (01) ==
LOC: ER 16:13
DX: M77.31 Calcaneal spur, right foot (principal); M72.2 Plantar fascial fibromatosis; I10 Essential (primary) hypertension; E11.9 Type 2 diabetes mellitus without complications
CPT/HCPCS: 99283

== ENCOUNTER 2019-05-02 15:33 | Emergency (ER) | payer SELFPAY ==
[2019-05-02 15:49] VITALS: BP 149/86
[2019-05-02] MEDS ORDERED: ASPIRIN 81 MG TABLET, CHEWABLE PO ONE (16:40)
--- NOTE | 2019-05-02 16:41 | ER Document Report ---
ED Medical Screen (RME) - General Chief Complaint: Chest Pain Stated Complaint: CHEST PAIN Time Seen by Provider: 05/02/19 16:38 Mode of Arrival: Ambulatory Information source: Patient Notes: Patient presents to the emergency department with complaints of chest pain for the past month. Reports some left side of her chest and goes down her left arm. Patient has history of LEFT bundle branch block diabetes seizures hypertension. Patient denies nausea or vomiting with this chest pain. EKG shows sinus tach left bundle branch block I have greeted and performed a rapid initial assessment of this patient. A comprehensive ED assessment and evaluation of the patient, analysis of test results and completion of the medical decision making process will be conducted by additional ED providers. Dictation of this chart was performed using voice recognition software; therefore, there may be some unintended grammatical errors. TRAVEL OUTSIDE OF THE [place] IN LAST 30 DAYS: No COUNTRY TRAVELED TO/FROM: [facility] - Related Data Allergies/Adverse Reactions: No Known Allergies Allergy (Verified 05/02/19 15:34) Past Medical History - Past Medical History Cardiac Medical History: Reports: Hx Hypercholesterolemia, Hx Hypertension, Hx Heart Murmur Pulmonary Medical History: Reports: Hx Bronchitis Denies: Hx Tuberculosis Neurological Medical History: Reports: Hx Seizures - Told stress related, having started when her 2011. On Dilantin Endocrine Medical History: Reports: Hx Diabetes Mellitus Type 2 Renal/ Medical History: Denies: Hx Peritoneal Dialysis Musculoskeltal Medical History: Reports Hx Arthritis Psychiatric Medical History: Reports: Hx Anxiety Denies: Hx Depression Past Surgical History: Reports: Hx Section, Hx Orthopedic Surgery - r shoulder w hardware, Hx Tonsillectomy - Immunizations Immunizations up to date: Yes Hx Diphtheria, Pertussis, Tetanus Vaccination: Yes - 2015 Physical Exam - Vital signs Vitals: Temp Pulse Resp BP Pulse Ox 98.3 F 118 H 16 149/86 H 94 05/02/19 15:47 05/02/19 15:47 05/02/19 15:47 05/02/19 15:47 05/02/19 15:47 Course - Vital Signs Vital signs: Temp Pulse Resp BP Pulse Ox 98.3 F 118 H 16 149/86 H 94 05/02/19 15:47 05/02/19 15:47 05/02/19 15:47 05/02/19 15:47 05/02/19 15:47
[2019-05-02 17:13] LABS: ABSOLUTE BASOPHILS # (AUTO) 0.1 10^3/uL (0.0-0.2); ABSOLUTE LYMPHOCYTES (AUTO) 2.9 10^3/uL (0.5-4.7); ABSOLUTE MONOCYTES (AUTO) 0.4 10^3/uL (0.1-1.4); ABSOLUTE NEUT (AUTO) 4.7 10^3/uL (1.7-8.2); EOSINOPHILS % (AUTO) 0.4 % (0-6); HEMATOCRIT 42.3 % (36.0-47.0); HEMOGLOBIN 14.4 g/dL (12.0-15.5); LYMPHOCYTES % (AUTO) 35.4 % (13-45); MEAN CORPUSCULAR HEMOGLOBIN 28.6 pg (27.0-33.4); MEAN CORPUSCULAR VOLUME 84 fl (80-97); MONOCYTES % (AUTO) 5.3 % (3-13); PLATELET COUNT 320 10^3/uL (150-450); RED BLOOD COUNT 5.02 10^6/uL (3.72-5.28); RED CELL DISTRIBUTION WIDTH 15.7 % (11.5-14.0); SEGMENTED NEUTROPHILS % (AUTO) 57.9 % (42-78); TOTAL CELLS COUNTED % (AUTO) 100 %; WHITE BLOOD COUNT 8.2 10^3/uL (4.0-10.5)
--- NOTE | 2019-05-02 17:18 | RADIOLOGY REPORT (SQ) ---
EXAM DESCRIPTION: CHEST 2 VIEWS COMPLETED DATE/TIME: 05/02/2019 4:51 pm REASON FOR STUDY: CHEST PAIN COMPARISON: 07/15/2015 TECHNIQUE: Frontal and lateral radiographic views of the chest acquired. NUMBER OF VIEWS: Two view. LIMITATIONS: None. FINDINGS: LUNGS AND PLEURA: No pneumothorax. No consolidation or pleural effusion. MEDIASTINUM AND HILAR STRUCTURES: Stable. HEART AND VASCULAR STRUCTURES: Stable. BONES: No acute findings. HARDWARE: None in the chest. OTHER: No other significant finding. IMPRESSION: NO ACUTE FINDINGS. TECHNICAL DOCUMENTATION: JOB ID: [id number] 2010 [employer]- All Rights Reserved Reading location - IP/workstation name: [email or web address]
[2019-05-02 17:23] LABS: APPEARANCE,URINE SLIGHTLY-CLOUDY; BILIRUBIN,URINE NEGATIVE (NEGATIVE); COLOR,URINE STRAW; GLUCOSE, URINE >=500 mg/dL (NEGATIVE); KETONES,URINE NEGATIVE (NEGATIVE); LEUKOCYTE ESTERASE,URINE LARGE (NEGATIVE); NITRITE,URINE NEGATIVE (NEGATIVE); PROTEIN,URINE NEGATIVE (NEGATIVE); URINE SPECIFIC GRAVITY 1.018; UROBILINOGEN,URINE NEGATIVE mg/dL (<2.0)
[2019-05-02 17:31] LABS: ALANINE AMINOTRANSFERASE 16 U/L (9-52); ALBUMIN 4.6 g/dL (3.5-5.0); ALKALINE PHOSPHATASE 139 U/L (38-126); ANION GAP 12 (5-19); ASPARTATE AMINO TRANSFERASE 15 U/L (14-36); BILIRUBIN,DIRECT 0.3 mg/dL (0.0-0.4); BILIRUBIN,TOTAL 0.8 mg/dL (0.2-1.3); BLOOD UREA NITROGEN 16 mg/dL (7-20); CALCIUM 10.3 mg/dL (8.4-10.2); CARBON DIOXIDE 32 mmol/L (22-30); CHLORIDE 93 mmol/L (98-107); CREATINE KINASE 54 U/L (30-135); GLUCOSE 358 mg/dL (75-110); POTASSIUM 3.8 mmol/L (3.6-5.0); SODIUM 136.9 mmol/L (137-145); TOTAL PROTEIN 8.4 g/dL (6.3-8.2)
--- NOTE | 2019-05-02 19:11 | EKG REPORT ---
SEVERITY:- ABNORMAL ECG - SINUS TACHYCARDIA LEFT BUNDLE BRANCH BLOCK : Confirmed by: Sudhir Golden MD 02-May-2019 19:10:59
== END 2019-05-02 20:15 | disposition left against medical advice (07) ==
LOC: ER 15:33
DX: R07.9 Chest pain, unspecified (principal); I10 Essential (primary) hypertension; E11.9 Type 2 diabetes mellitus without complications; Z53.20 Procedure and treatment not carried out because of patient's decision for unspecified reasons
CPT/HCPCS: 36415; 71046; 80053; 81001; 82550; 84484; 85025; 93005; 93010; 99281; 99285

== ENCOUNTER 2019-05-03 08:21 | Emergency (ER) | payer SELFPAY ==
[2019-05-03 10:27] LABS: ABSOLUTE BASOPHILS # (AUTO) 0.1 10^3/uL (0.0-0.2); ABSOLUTE LYMPHOCYTES (AUTO) 1.9 10^3/uL (0.5-4.7); ABSOLUTE MONOCYTES (AUTO) 0.4 10^3/uL (0.1-1.4); ABSOLUTE NEUT (AUTO) 5.3 10^3/uL (1.7-8.2); BASOPHILS % (AUTO) 0.7 % (0-2); EOSINOPHILS % (AUTO) 0.4 % (0-6); HEMATOCRIT 40.3 % (36.0-47.0); HEMOGLOBIN 13.5 g/dL (12.0-15.5); LYMPHOCYTES % (AUTO) 24.9 % (13-45); MEAN CORPUSCULAR HEMOGLOBIN 28.3 pg (27.0-33.4); MEAN CORPUSCULAR HGB CONC 33.6 g/dL (32.0-36.0); MEAN CORPUSCULAR VOLUME 84 fl (80-97); MONOCYTES % (AUTO) 5.4 % (3-13); PLATELET COUNT 272 10^3/uL (150-450); RED BLOOD COUNT 4.79 10^6/uL (3.72-5.28); RED CELL DISTRIBUTION WIDTH 15.4 % (11.5-14.0); SEGMENTED NEUTROPHILS % (AUTO) 68.6 % (42-78); TOTAL CELLS COUNTED % (AUTO) 100 %; WHITE BLOOD COUNT 7.8 10^3/uL (4.0-10.5)
[2019-05-03 11:07] LABS: CREATINE KINASE MB 0.26 ng/mL (<4.55); TROPONIN I < 0.012 ng/mL
[2019-05-03 11:21] LABS: APPEARANCE,URINE CLOUDY; BILIRUBIN,URINE NEGATIVE (NEGATIVE); COLOR,URINE YELLOW; GLUCOSE, URINE >=500 mg/dL (NEGATIVE); KETONES,URINE NEGATIVE (NEGATIVE); LEUKOCYTE ESTERASE,URINE LARGE (NEGATIVE); NITRITE,URINE NEGATIVE (NEGATIVE); PROTEIN,URINE NEGATIVE (NEGATIVE); UROBILINOGEN,URINE NEGATIVE mg/dL (<2.0)
[2019-05-03 11:27] LABS: ADD MANUAL MICROSCOPIC YES; RBC,URINE 20-30 /HPF; WBC,URINE 50-100 /HPF
[2019-05-03 11:28] LABS: BACTERIA,URINE 3+ /HPF
[2019-05-03 12:10] LABS: ALANINE AMINOTRANSFERASE 16 U/L (9-52); ALBUMIN 4.3 g/dL (3.5-5.0); ALKALINE PHOSPHATASE 127 U/L (38-126); ANION GAP 9 (5-19); ASPARTATE AMINO TRANSFERASE 18 U/L (14-36); BILIRUBIN,DIRECT 0.4 mg/dL (0.0-0.4); BILIRUBIN,TOTAL 0.8 mg/dL (0.2-1.3); BLOOD UREA NITROGEN 15 mg/dL (7-20); CALCIUM 10.2 mg/dL (8.4-10.2); CARBON DIOXIDE 30 mmol/L (22-30); CHLORIDE 100 mmol/L (98-107); CREATINE KINASE 41 U/L (30-135); GLUCOSE 354 mg/dL (75-110); POTASSIUM 4.1 mmol/L (3.6-5.0); SODIUM 139.2 mmol/L (137-145); TOTAL PROTEIN 7.7 g/dL (6.3-8.2)
[2019-05-03 12:53] VITALS: BP 150/87
--- NOTE | 2019-05-03 13:40 | EKG REPORT ---
SEVERITY:- ABNORMAL ECG - SINUS RHYTHM LEFT BUNDLE BRANCH BLOCK : Confirmed by: Sudhir Golden MD 03-May-2019 13:39:25
--- NOTE | 2019-05-03 15:39 | ER Document Report ---
Entered by MIKHAIL GAMBOA SCRIBE 05/03/19911 Acting as scribe for:LIGIA ROSA MD ED General - General Chief Complaint: Chest Pain > 30 Stated Complaint: CHEST PAIN Time Seen by Provider: 05/03/19 09:09 Notes: Patient is a 54-year-old female presenting to the emergency department complaining of chest pain. Patient states that the pain radiates into her left shoulder and arm, lifting her arm exacerbates the pain. Patient states that she came here in the emergency department yesterday for the same thing, she left AMA. Patient states that the pain has been constant patient has a history of seizures. TRAVEL OUTSIDE OF THE [place] IN LAST 30 DAYS: No COUNTRY TRAVELED TO/FROM: [facility] - Related Data Allergies/Adverse Reactions: No Known Allergies Allergy (Verified 05/03/19 08:22) Past Medical History - General Information source: Patient - Social History Smoking Status: Never Smoker Cigarette use (# per day): No Chew tobacco use (# tins/day): No Frequency of alcohol use: None Family History: Reviewed & Not Pertinent, CVA, DM, Hyperlipidemia, Hypertension, Malignancy - Father, Thyroid Disfunction Patient has suicidal ideation: No Patient has homicidal ideation: No - Past Medical History Cardiac Medical History: Reports: Hx Hypercholesterolemia, Hx Hypertension, Hx Heart Murmur Pulmonary Medical History: Reports: Hx Bronchitis Neurological Medical History: Reports: Hx Seizures - Told stress related, having started when her 2011. On Dilantin Endocrine Medical History: Reports: Hx Diabetes Mellitus Type 2 Musculoskeletal Medical History: Reports Hx Arthritis Psychiatric Medical History: Reports: Hx Anxiety Past Surgical History: Reports: Hx Section, Hx Orthopedic Surgery - r shoulder w hardware, Hx Tonsillectomy - Immunizations Immunizations up to date: Yes Hx Diphtheria, Pertussis, Tetanus Vaccination: Yes - 2015 Review of Systems - Review of Systems Constitutional: No symptoms reported EENT: No symptoms reported Cardiovascular: See HPI, Chest pain Respiratory: No symptoms reported Gastrointestinal: No symptoms reported Genitourinary: No symptoms reported Female Genitourinary: No symptoms reported Musculoskeletal: No symptoms reported Skin: No symptoms reported Hematologic/Lymphatic: No symptoms reported Neurological/Psychological: No symptoms reported -: Yes All other systems reviewed and negative Physical Exam - Vital signs Vitals: Temp Pulse Resp BP Pulse Ox 98 F 93 16 151/83 H 97 05/03/19 08:33 05/03/19 08:33 05/03/19 08:33 05/03/19 08:33 05/03/19 08:33 - Notes Notes: Physical Exam: General: Alert, appears well. HEENT: Normocephalic. Atraumatic. PERRL. Extraocular movements intact. Oropharynx clear. Neck: Trapezius strain musculature tenderness to palpation. Scapular musculature tenderness to palpation. Respiratory: No respiratory distress. Clear and equal breath sounds bilaterally. Chest: Anterior chest wall, pectoralis tenderness to palpation. Cardiovascular: Regular rate and rhythm. Abdominal: Normal Inspection. Non-tender. No distension. Normal Bowel Sounds. Back: Non-tender. No deformity or step off. Extremities: Moves all four extremities. Upper extremities: Normal inspection. Normal ROM. Lower extremities: Normal inspection. No edema. Normal ROM. Neurological: Normal cognition. AAOx4. Normal speech. Psychological: Normal affect. Normal Mood. Skin: Warm. Dry. Normal color. Course - Vital Signs Vital signs: Temp Pulse Resp BP Pulse Ox 97.9 F 98 16 150/87 H 100 05/03/19 12:52 05/03/19 12:52 05/03/19 12:52 05/03/19 12:52 05/03/19 12:52 - Laboratory Result Diagrams: 05/03/19 10:15 05/03/19 11:08 Laboratory results interpreted by me: 05/03/19 05/03/19 05/03/19 10:15 10:15 11:08 RDW 15.4 H Glucose 354 H Hemoglobin A1c % 10.7 H Alkaline Phosphatase 127 H Urine Glucose (UA) Urine Blood Ur Leukocyte Esterase 05/03/19 11:08 RDW Glucose Hemoglobin A1c % Alkaline Phosphatase Urine Glucose (UA) >=500 H Urine Blood MODERATE H Ur Leukocyte Esterase LARGE H Discharge - Discharge Clinical Impression: Chest wall pain, Poorly controlled diabetes mellitus Urinary tract infection Qualifiers: Urinary tract infection type: site unspecified Hematuria presence: with hematuria Qualified Code(s): N39.0 - Urinary tract infection, site not specified; R31.9 - Hematuria, unspecified Condition: Stable Disposition: HOME, SELF-CARE Additional Instructions: Chest Wall Pain Your chest pain has been diagnosed as coming from the chest wall. This is often caused by straining the muscles or joints in the chest during physical activity, direct trauma, coughing, or vigorous vomiting. Persons with arthritis are especially prone to this type of pain, due to inflammation of the cartilage joints near the breast bone. Occasionally, no cause can be found. Rest from strenuous physical activity. This kind of chest pain is usually made worse by movement of the chest. Depending on the symptoms, we may command medicine such as ibuprofen or Aleve for pain and antiinflammatory effects. If the pain is new, and seems to be due to muscle strain, cold packs can help. Otherwise, apply gentle warmth to the painful area for 15 minutes every hour or two. You should contact the doctor immediately if things change. Further evaluation is needed if you develop a fever or cough, if the nature of the pain changes, or if you become short of breath. Urinary Tract Infection Your evaluation indicates that you have a urinary tract infection. This is due to germs growing in the bladder. This is a common problem. This infection usually responds quickly to antibiotics. Your antibiotic should be taken exactly as prescribed. Drink plenty of fluids -- three to four quarts a day. Occasionally, a bladder anesthetic will be prescribed to help stop the feeling of urgency until the antibiotic has a chance to clear the infection. T his may cause your urine to be dark orange. Certain urine infections require a culture. If the doctor obtained a culture, the results will be back in two days. You should call to see if a change in treatment is needed. A repeat urinalysis after you finish treatment is often recommended. The physician will let you know if further testing is required. Call the doctor if you develop fever, chills, flank pain, inability to urinate, or blood in the urine. Your evaluation today shows that the pain in your left chest is related to muscle tenderness, probably related to something that strained your chest wall muscles several weeks ago. You are also found to have a urinary tract infection, and were prescribed antibiotic to take to try to clear that up. The urine was cultured to be sure that the infecting organism is sensitive to the antibiotic. Your blood sugars are running high, and your A1c was also quite high. You should take the medication as prescribed. Drink plenty of fluids throughout the day in the evening for the next few days. Follow-up with your primary care provider in the next few days for recheck and to discuss better management of your blood sugars. RETURN TO THE EMERGENCY ROOM IF ANY NEW OR WORSENING SYMPTOMS. Prescriptions: Cephalexin Monohydrate [Keflex 500 mg Capsule] 500 mg PO TID #15 capsule Scribe Attestation: 05/03/19 11:38 I personally performed the services described in the documentation, reviewed and edited the documentation which was dictated to the scribe in my presence, and it accurately records my words and actions. I personally performed the services described in the documentation, reviewed and edited the documentation which was dictated to the scribe in my presence, and it accurately records my words and actions.
--- NOTE | 2019-05-03 19:00 | EKG REPORT ---
SEVERITY:- ABNORMAL ECG - SINUS RHYTHM LEFT BUNDLE BRANCH BLOCK : Confirmed by: Sudhir Golden MD 03-May-2019 19:00:05
== END 2019-05-03 12:53 | disposition home or self-care (01) ==
LOC: ER 08:21
DX: R07.9 Chest pain, unspecified (principal); N39.0 Urinary tract infection, site not specified; R31.9 Hematuria, unspecified; E11.9 Type 2 diabetes mellitus without complications; E78.00 Pure hypercholesterolemia, unspecified; I10 Essential (primary) hypertension
CPT/HCPCS: 36415; 80053; 81001; 82550; 82553; 83036; 84484; 85025; 87086; 87088; 87186; 93005; 93010; 99285

== ENCOUNTER → 2019-05-26 | Outpatient (CLI) | payer OTHER ==
[2019-05-26 10:22] LABS: ABSOLUTE LYMPHOCYTES (AUTO) 1.7 10^3/uL (0.5-4.7); ABSOLUTE MONOCYTES (AUTO) 0.3 10^3/uL (0.1-1.4); ABSOLUTE NEUT (AUTO) 2.7 10^3/uL (1.7-8.2); BASOPHILS % (AUTO) 0.5 % (0-2); HEMATOCRIT 37.7 % (36.0-47.0); HEMOGLOBIN 12.6 g/dL (12.0-15.5); LYMPHOCYTES % (AUTO) 34.8 % (13-45); MEAN CORPUSCULAR HGB CONC 33.4 g/dL (32.0-36.0); MEAN CORPUSCULAR VOLUME 84 fl (80-97); PLATELET COUNT 246 10^3/uL (150-450); RED BLOOD COUNT 4.49 10^6/uL (3.72-5.28); RED CELL DISTRIBUTION WIDTH 16.2 % (11.5-14.0); SEGMENTED NEUTROPHILS % (AUTO) 57.7 % (42-78); TOTAL CELLS COUNTED % (AUTO) 100 %; WHITE BLOOD COUNT 4.8 10^3/uL (4.0-10.5)
[2019-05-26 10:43] LABS: ALBUMIN 3.9 g/dL (3.5-5.0); ALKALINE PHOSPHATASE 102 U/L (38-126); ANION GAP 5 (5-19); ASPARTATE AMINO TRANSFERASE 16 U/L (14-36); BILIRUBIN,DIRECT 0.2 mg/dL (0.0-0.4); BILIRUBIN,TOTAL 0.5 mg/dL (0.2-1.3); BLOOD UREA NITROGEN 13 mg/dL (7-20); CALCIUM 9.9 mg/dL (8.4-10.2); CARBON DIOXIDE 28 mmol/L (22-30); CHLORIDE 107 mmol/L (98-107); CHOLESTEROL 248.11 mg/dL (0-200); GLUCOSE 223 mg/dL (75-110); POTASSIUM 4.4 mmol/L (3.6-5.0); TRIGLYCERIDES 114 mg/dL (<150)
[2019-05-26 10:57] LABS: DIRECT LDL 174 mg/dL (<100)
== END ==
LOC: OD 09:26
DX: Z00.00 Encounter for general adult medical examination without abnormal findings (principal)
CPT/HCPCS: 36415; 80053; 80061; 83036; 84443; 85025

== ENCOUNTER 2019-10-31 09:54 | Inpatient (IN) | payer OTHER ==
[2019-10-31 10:45] LABS: HEMOGLOBIN 11.5 g/dL (12.0-15.5); MEAN CORPUSCULAR HEMOGLOBIN 28.9 pg (27.0-33.4); MEAN CORPUSCULAR HGB CONC 33.7 g/dL (32.0-36.0); MEAN CORPUSCULAR VOLUME 86 fl (80-97); PLATELET COUNT 327 10^3/uL (150-450); RED BLOOD COUNT 3.96 10^6/uL (3.72-5.28); RED CELL DISTRIBUTION WIDTH 15.4 % (11.5-14.0); WHITE BLOOD COUNT 18.8 10^3/uL (4.0-10.5)
[2019-10-31 10:50] LABS: INTERNATIONAL RATION (INR) 1.19; PROTHROMBIN TIME 15.2 SEC (11.4-15.4)
[2019-10-31 10:56] LABS: A TYPE INFLUENZA AG NEGATIVE (NEGATIVE); B INFLUENZA AG NEGATIVE (NEGATIVE)
[2019-10-31 11:03] LABS: ALBUMIN 3.9 g/dL (3.5-5.0); ALKALINE PHOSPHATASE 124 U/L (38-126); ANION GAP 17 (5-19); ASPARTATE AMINO TRANSFERASE 20 U/L (14-36); BILIRUBIN,DIRECT 0.8 mg/dL (0.0-0.4); BILIRUBIN,TOTAL 1.4 mg/dL (0.2-1.3); BLOOD UREA NITROGEN 15 mg/dL (7-20); CALCIUM 8.8 mg/dL (8.4-10.2); CARBON DIOXIDE 21 mmol/L (22-30); CHLORIDE 97 mmol/L (98-107); POTASSIUM 3.9 mmol/L (3.6-5.0); TOTAL PROTEIN 8.3 g/dL (6.3-8.2)
[2019-10-31 11:05] LABS: VENOUS BLOOD BASE EXCESS -2.6 mmol/L; VENOUS BLOOD PCO2 28.3 mmHg (35-63); VENOUS BLOOD PH 7.47 (7.30-7.42)
--- NOTE | 2019-10-31 11:09 | ER Document Report ---
ED General - General Chief Complaint: Nausea/Vomiting/Diarrhea Stated Complaint: FEVER Time Seen by Provider: 10/31/19 10:37 Notes: 54 year old female with a history of type 2 diabetes brought in by EMS to the ED complaining of 2 weeks of nausea, vomiting and diarrhea, associated with fevers, productive cough and urinary incontinence. Denies any abdominal pain. Denies any blood in her stool or in her urine. Patient is a diabetic, does not check her blood sugars on a regular basis, only uses metformin. Does have a history of seizures but stopped her Dilantin 1 month ago when she ran out of it. TRAVEL OUTSIDE OF THE [place] IN LAST 30 DAYS: No COUNTRY TRAVELED TO/FROM: [facility] - Related Data Allergies/Adverse Reactions: No Known Allergies Allergy (Verified 05/03/19 08:22) Past Medical History - General Information source: Patient - Social History Smoking Status: Never Smoker Chew tobacco use (# tins/day): No Frequency of alcohol use: None Drug Abuse: None Family History: CVA, DM, Hyperlipidemia, Hypertension, Malignancy - Father, Thyroid Disfunction Patient has suicidal ideation: No Patient has homicidal ideation: No - Past Medical History Cardiac Medical History: Reports: Hx Hypercholesterolemia, Hx Hypertension, Hx Heart Murmur Pulmonary Medical History: Reports: Hx Bronchitis Denies: Hx Tuberculosis Neurological Medical History: Reports: Hx Seizures - Told stress related, having started when her 2011. On Dilantin Endocrine Medical History: Reports: Hx Diabetes Mellitus Type 2 Renal/ Medical History: Denies: Hx Peritoneal Dialysis Musculoskeletal Medical History: Reports Hx Arthritis Psychiatric Medical History: Reports: Hx Anxiety Denies: Hx Depression Past Surgical History: Reports: Hx Section, Hx Orthopedic Surgery - r shoulder w hardware, Hx Tonsillectomy - Immunizations Immunizations up to date: Yes Hx Diphtheria, Pertussis, Tetanus Vaccination: Yes - 2015 Review of Systems - Review of Systems Constitutional: Chills, Diaphoresis, Fever, Malaise, Weakness EENT: No symptoms reported Cardiovascular: No symptoms reported. denies: Chest pain Respiratory: See HPI, Cough, Short of breath Gastrointestinal: See HPI, Diarrhea, Nausea, Vomiting. denies: Abdominal pain Genitourinary: See HPI, Frequency, Incontinence. denies: Dysuria -: Yes All other systems reviewed and negative Physical Exam - Vital signs Vitals: Resp Pulse Ox 13 96 10/31/19 09:57 10/31/19 09:57 - Notes Notes: GENERAL: Alert, interacts well. Appears uncomfortable. HEAD: Normocephalic, atraumatic EYES: Pupils equal, round and reactive to light, extraocular movements intact. ENT: Oral mucosa moist, tongue midline. NECK: Full range of motion, supple, trachea midline. LUNGS: Clear to auscultation bilaterally, no wheezes, rales or rhonchi, no respiratory distress. HEART: Tachycardic rate and rhythm, no murmurs, gallops, rubs. ABDOMEN: Soft, right upper quadrant and right lower quadrant tenderness to palpation, nondistended, bowel sounds present in all 4 quadrants. EXTREMITIES: Moves all 4 extremities spontaneously, no edema, radial and dorsalis pedis pulses 2/4 bilaterally. No cyanosis. NEUROLOGICAL: Alert and oriented x3, normal speech. PSYCH: Normal mood, normal affect. SKIN: Hot to the touch dry, normal turgor, no rashes or lesions noted. Course - Re-evaluation Re-evalutation: 10/31/19 15:08 CBC shows leukocytosis at 18.8, anemia with hemoglobin 11.5, INR slightly prolonged, venous blood gas grossly unremarkable, is consistent with some hyperv entilation from her pain, CMP shows markedly elevated glucose at 635, there is a pseudohyponatremia and slightly low CO2, total and direct bilirubin are both mildly elevated, initial lactic acid is elevated at 2.2, repeated 3 hours later it is 1.2, blood sugar is trending downward with fluids and insulin, urinalysis shows trace ketones and greater than 500 of glucose, no evidence of infection, Hemoccult is negative, rapid flu is negative, chest x-ray is performed and shows right upper lobe and right lower lobe pneumonia. Empiric antibiotics in the form of Zosyn were started prior to receiving this result as the patient does meet sepsis criteria. Patient's fever was treated with Tylenol when the patient was still under the care of EMS. Patient was given a 30 mL/kg bolus of fluid using ideal body weight. At 5 foot 3 she should weigh approximately 52 kg, 30 mL's per kilo comes to 15[address] scan the abdomen pelvis was ordered as well given her vomiting and diarrhea as well as right upper quadrant abdominal pain. This simply revealed a right lower lobe pneumonia but no evidence of acute intra-abdominal process. Patient will be discussed with hospitalist for admission. 10/31/19 15:[address] Mehta who agrees to accept the patient to his service for admission. 10/31/19 15:44 Patient does meet sepsis criteria. There is no evidence of septic shock. - Vital Signs Vital signs: Temp Pulse Resp BP Pulse Ox 102.1 F H 19 132/85 H 99 10/31/19 10:00 10/31/19 15:00 10/31/19 13:01 10/31/19 15:00 - Laboratory Result Diagrams: 10/31/19 10:20 10/31/19 10:20 Laboratory results interpreted by me: 10/31/19 10/31/19 10/31/19 10:20 10:20 10:30 WBC 18.8 H Hgb 11.5 L Hct 34.0 L RDW 15.4 H Seg Neuts % (Manual) 85 H Lymphocytes % (Manual) 6 L Abs Neuts (Manual) 16.5 H VBG pH VBG pCO2 Sodium 134.7 L Chloride 97 L Carbon Dioxide 21 L Est GFR (MDRD) Non-Af 57 L Glucose 635 H* POC Glucose Lactic Acid 2.2 H Total Bilirubin 1.4 H Direct Bilirubin 0.8 H Total Protein 8.3 H Urine Protein Urine Glucose (UA) Urine Ketones Urine Blood 10/31/19 10/31/19 10/31/19 10:37 10:52 13:09 WBC Hgb Hct RDW Seg Neuts % (Manual) Lymphocytes % (Manual) Abs Neuts (Manual) VBG pH 7.47 H VBG pCO2 28.3 L Sodium Chloride Carbon Dioxide Est GFR (MDRD) Non-Af Glucose POC Glucose 421 H* Lactic Acid Total Bilirubin Direct Bilirubin Total Protein Urine Protein 30 H Urine Glucose (UA) >=500 H Urine Ketones TRACE H Urine Blood SMALL H - EKG Interpretation by Me Additional EKG results interpreted by me: 10/31/19 15:10 EKG shows sinus tachycardia at a rate of 133, left bundle branch block, does not meet sgarbossa criteria, aside from rate it is unchanged from prior EKG per my interpretation. Discharge - Discharge Clinical Impression: Nausea vomiting and diarrhea Right upper lobe pneumonia Qualifiers: Pneumonia type: due to unspecified organism Qualified Code(s): J18.9 - Pneumonia, unspecified organism Right lower lobe pneumonia Qualifiers: Pneumonia type: due to unspecified organism Qualified Code(s): J18.9 - Pneumonia, unspecified organism Sepsis Qualifiers: Sepsis acute organ dysfunction status: without acute organ dysfunction Condition: Fair Disposition: ADMITTED INPATIENT Admitting Provider: Janine (Hospitalist) Unit Admitted: Medical Floor
[2019-10-31 11:16] LABS: ABSOLUTE LYMPHOCYTES# (MANUAL) 1.1 10^3/uL (0.5-4.7); ABSOLUTE MONOCYTES # (MANUAL) 1.1 10^3/uL (0.1-1.4); ANISOCYTOSIS SLIGHT; BAND NEUTROPHILS % (MANUAL) 3 % (3-5); BASOPHILS % (MANUAL) 0 % (0-2); EOSINOPHILS % (MANUAL) 0 % (0-6); GLUCOSE 635 mg/dL (75-110); LYMPHOCYTES % (MANUAL) 6 % (13-45); MONOCYTES % (MANUAL) 6 % (3-13); PLATELET COMMENT ADEQUATE; SEGMENTED NEUTROPHILS % (MAN) 85 % (42-78); TOTAL CELLS COUNTED 100; TOXIC VACUOLATION PRESENT
--- NOTE | 2019-10-31 11:22 | EKG REPORT ---
SEVERITY:- ABNORMAL ECG - SINUS TACHYCARDIA LEFT BUNDLE BRANCH BLOCK : Confirmed by: Gogo Noe MD 31-Oct-2019 11:22:01
[2019-10-31 11:23] LABS: APPEARANCE,URINE CLEAR; BILIRUBIN,URINE NEGATIVE (NEGATIVE); COLOR,URINE YELLOW; GLUCOSE, URINE >=500 mg/dL (NEGATIVE); KETONES,URINE TRACE mg/dL (NEGATIVE); LEUKOCYTE ESTERASE,URINE NEGATIVE (NEGATIVE); NITRITE,URINE NEGATIVE (NEGATIVE); PROTEIN,URINE 30 mg/dL (NEGATIVE); URINE SPECIFIC GRAVITY 1.022; UROBILINOGEN,URINE NEGATIVE mg/dL (<2.0)
[2019-10-31] MEDS ORDERED: NORMAL SALINE 1000 ML 1,000 ML IV ONE ×2 (11:30→16:09)
[2019-10-31] MEDS ORDERED: INSULIN REG, HUMAN 100 UNIT/ML 3 ML VIAL (PYX) SUBCUT ONE (11:30)
--- NOTE | 2019-10-31 12:00 | RADIOLOGY REPORT (SQ) ---
EXAM DESCRIPTION: CHEST 2 VIEWS COMPLETED DATE/TIME: 10/31/2019 11:38 am REASON FOR STUDY: flu like symptoms COMPARISON: CHEST FILMS 05/02/2019, 03/28/2018, 07/15/2015 EXAM PARAMETERS: NUMBER OF VIEWS: two views TECHNIQUE: Digital Frontal and Lateral radiographic views of the chest acquired. RADIATION DOSE: NA LIMITATIONS: none FINDINGS: LUNGS AND PLEURA: There is dense consolidation in the right upper lobe, and right posterio r costophrenic sulcus worrisome for multifocal pneumonia. No pleural effusions. No pneumothorax. MEDIASTINUM AND HILAR STRUCTURES: No masses or contour abnormalities. HEART AND VASCULAR STRUCTURES: Heart normal size. No evidence for failure. BONES: No acute findings. HARDWARE: None in the chest. OTHER: No other significant finding. IMPRESSION: Dense consolidation in the posterior aspect of the right upper lobe and in the right pos terior lower lobe. Findings are worrisome for pneumonia. Aspiration should be considered. TECHNICAL DOCUMENTATION: JOB ID: [id number] [employer]- All Rights Reserved Reading location - IP/workstation name: [email or web address]
[2019-10-31] MEDS ORDERED: PIPERACILLIN/TAZOBACTAM 4.5 GM VIAL IV ONE (12:56)
[2019-10-31] MEDS ORDERED: RINGERS SOLUTION,LACTATED 1,000 ML IV ONE (13:21)
--- NOTE | 2019-10-31 14:41 | RADIOLOGY REPORT (SQ) ---
EXAM DESCRIPTION: CT ABD/PELVIS WITH IV ORAL COMPLETED DATE/TIME: 10/31/2019 2:09 pm REASON FOR STUDY: N/V/D x 2 weeks COMPARISON: None. TECHNIQUE: CT scan of the abdomen and pelvis performed using helical scanning technique with dynamic intravenous contrast injection. Additional oral contrast. Images reviewed with lung, soft tissue, a nd bone windows. Reconstructed coronal and sagittal MPR images reviewed. Delayed images for evaluatio n of the urinary system also acquired. All images stored on PACS. All CT scanners at this facility use dose modulation, iterative reconstruction, and/or weight based d osing when appropriate to reduce radiation dose to as low as reasonably achievable (ALARA). [facility]: Dose Right [facility]: CareDose [facility]: Dose Right [facility]: Teradose 4D [facility]: Appear CONTRAST TYPE AND DOSE: contrast/concentration: Isovue 350.00 mg/ml; Total Contrast Delivered: 100.0 ml; Total Saline Delivered: 56.8 ml RENAL FUNCTION: GFR > 60. RADIATION DOSE: CT Rad equipment meets quality standard of care and radiation dose reduction techniq ues were employed. CTDIvol: 9.4 - 12.6 mGy. DLP: 1149 mGy-cm.. LIMITATIONS: None. FINDINGS: LOWER CHEST: There is dense, heterogeneous consolidation of the included dependent right l ower lobe with a trace associated pleural effusion. LIVER: Normal size. No masses. No dilated ducts. SPLEEN: Normal size. No focal lesions. PANCREAS: No masses. No significant calcifications. No adjacent inflammation or peripancreatic fluid collections. Pancreatic duct not dilated. GALLBLADDER: No identified stones by CT criteria. No inflammatory changes to suggest cholecystitis. ADRENAL GLANDS: No significant masses or asymmetry. RIGHT KIDNEY AND URETER: No solid masses. No significant calcifications. There is mild right hydr onephrosis and hydroureter. LEFT KIDNEY AND URETER: No solid masses. No significant calcifications. No hydronephrosis or hydr oureter. AORTA AND VESSELS: No aneurysm. No dissection. Renal arteries, SMA, celiac without stenosis. Calcifi c atherosclerosis. RETROPERITONEUM: No retroperitoneal adenopathy, hemorrhage or masses. BOWEL AND PERITONEAL CAVITY: No masses or inflammatory changes. No free fluid or peritoneal masses. APPENDIX: Normal. PELVIS: Large calcified uterine fibroids. No free fluid. Normal bladder. ABDOMINAL WALL: No masses. Diastasis with a broad-based, fat containing umbilical hernia. BONES: No significant or acute findings. OTHER: No other significant finding. IMPRESSION: 1. There is dense, heterogeneous consolidation of the included dependent right lower lob e with a trace associated pleural effusion. 2. No definite intraabdominal findings to explain right upper quadrant pain. 3. There is mild right hydronephrosis or hydroureter without evidence of distally obstructing or oth er urinary tract calculus. Findings may be related to mass effect of bulky uterine fibroids. TECHNICAL DOCUMENTATION: JOB ID: [id number] Quality ID # [id number]: Final reports with documentation of one or more dose reduction techniques (e.g., Au tomated exposure control, adjustment of the mA and/or kV according to patient size, use of iterative reconstruction technique) 2010 [employer]- All Rights Reserved Reading location - IP/workstation name: [email or web address]
[2019-10-31] MEDS ORDERED: KETOROLAC TROMETHAMINE 60 MG/2 ML SDV IV ONE (14:59)
[2019-10-31] MEDS ORDERED: MORPHINE SULFATE 10 MG/ML INJ IV ONE (14:59)
[2019-10-31] MEDS ORDERED: ONDANSETRON HCL INJ/PF 4 MG/2 ML SDV IV PRN (16:28)
[2019-10-31] MEDS ORDERED: MAG HYDROX/AL HYDROX/SIMETH SUSP 30 ML UDCUP PO PRN (16:28)
[2019-10-31] MEDS ORDERED: DEXTROSE 40% GEL 15 GM TUBE PO PRN ×2 (16:34)
[2019-10-31] MEDS ORDERED: GLUCAGON,HUMAN RECOMB 1 MG INJ IM PRN (16:34)
[2019-10-31] MEDS ORDERED: DEXTROSE 50%-WATER 25 GM/50 ML DISP.SYRIN IV PRN ×2 (16:34)
[2019-10-31] MEDS ORDERED: IPRATROPIUM/ALBUTEROL 0.5-2.5 MG/3 ML AMPUL NEB PRN (16:46)
--- NOTE | 2019-10-31 17:20 | PDOC H&P ---
History of Present Illness Admission Date/PCP: 10/31/19 15:58 Patient complains of: Cough and fever History of Present Illness: SHEMAR CONTEH is a 54 year old female with history of type 2 diabetes mellitus, hypertension, seizures, who presents to the hospital with complaints of cough, right-sided flank pain as well as fever. Patient has been having a viral s yndrome characterized by diarrhea, rhinorrhea, cough for the past 2 weeks. Cough became progressive with some production of greenish sputum. She is also experienced fevers. Endorses some shortness of breath as well. Lack of improvement of her symptoms prompted her to come to the emergency department for evaluation. She also complains of associated diarrhea and had 6 episodes yesterday. She has also had vomiting for the past 4 days which has limited her oral intake. Past Medical History Cardiac Medical History: Reports: Hyperlipidema, Hypertension Pulmonary Medical History: Reports: Bronchitis Denies: Tuberculosis Neurological Medical History: Reports: Seizures - Told stress related, having started when her 2011. On Dilantin Endocrine Medical History: Reports: Diabetes Mellitus Type 2 Psychiatric Medical History: Denies: Depression Hematology: Reports: Anemia Denies: Hemophilia, Sickle Cell Disease Past Surgical History Past Surgical History: Reports: Section, Orthopedic Surgery - r shoulder w hardware, Tonsillectomy Social History Information Source: Patient Lives with: Family - Lives with her adult children in a [facility] Smoking Status: Never Smoker Electronic Cigarette use?: No Frequency of Alcohol Use: None Hx Recreational Drug Use: No Hx Prescription Drug Abuse: No - Advance Directive Resuscitation Status: Full Code Family History Family History: CVA, DM, Hyperlipidemia, Hypertension, Malignancy - Father, Thyroid Disfunction Parental Family History Reviewed: Yes Children Family History Reviewed: Yes Sibling(s) Family History Reviewed.: Yes Medication/Allergy Home Medications: Amlodipine Besylate 10 mg PO DAILY 03/28/18 Glipizide [Glipizide ER] 5 mg PO DAILY 03/28/18 Hydrochlorothiazide 25 mg PO DAILY 03/28/18 Metformin HCl 1,000 mg PO BID 03/28/18 Methocarbamol [Robaxin 500 mg Tablet] 1,000 mg PO TID #30 tablet 03/28/18 Phenytoin Sodium Extended [Dilantin] 200 mg PO TID 03/28/18 Rosuvastatin Calcium [Crestor] 5 mg PO DAILY 03/28/18 Ibuprofen [Motrin 600 mg Tablet] 600 mg PO Q8HP PRN #30 tablet 07/14/18 Cephalexin Monohydrate [Keflex 500 mg Capsule] 500 mg PO TID #15 capsule 05/03/19 Allergies/Adverse Reactions: No Known Allergies Allergy (Verified 05/03/19 08:22) Review of Systems Constitutional: PRESENT: fever(s), night sweats. ABSENT: chills, weight loss Eyes: ABSENT: visual disturbances Nose, Mouth, and Throat: ABSENT: headache(s) Cardiovascular: ABSENT: chest pain Respiratory: PRESENT: cough, dyspnea, sputum Gastrointestinal: PRESENT: abdominal pain - Right flank, diarrhea, nausea, vomiting. ABSENT: hematemesis, hematochezia, melena Genitourinary: ABSENT: difficulty urinating, dysuria, hematuria Integumentary: PRESENT: diaphoresis Neurological: ABSENT: confusion Endocrine: PRESENT: polyuria Hematologic/Lymphatic: ABSENT: easy bleeding Physical Exam Vital Signs: Temp Pulse Resp BP Pulse Ox 98.3 F 24 H 146/99 H 87 L 10/31/19 16:01 10/31/19 16:01 10/31/19 16:01 10/31/19 16:01 Intake & Output 10/30/19 10/31/19 11/01/19 06:59 06:59 06:59 Intake Total 1000 Balance 1000 Weight 96.1 kg General appearance: PRESENT: no acute distress, cooperative Head exam: PRESENT: normocephalic Eye exam: PRESENT: EOMI Neck exam: ABSENT: JVD Respiratory exam: PRESENT: chest wall tenderness, crackles, symmetrical, unlabored. ABSENT: accessory muscle use, retraction, tachypnea, wheezes Cardiovascular exam: PRESENT: +S1, +S2, tachycardia. ABSENT: irregular rhythm Vascular exam: ABSENT: pallor GI/Abdominal exam: PRESENT: normal bowel sounds, soft, tenderness. ABSENT: distended, firm, rebound, rigid Rectal exam: PRESENT: deferred Neurological exam: PRESENT: alert, awake, oriented to person, oriented to place, oriented to time, oriented to situation Psychiatric exam: PRESENT: appropriate affect. ABSENT: agitated Focused psych exam: ABSENT: pressured speech Skin exam: PRESENT: intact. ABSENT: jaundice Results Laboratory Results: 10/31/19 10:20 10/31/19 10:20 10/31/19 10/31/19 10/31/19 10:20 10:20 10:30 WBC 18.8 H RBC 3.96 Hgb 11.5 L Hct 34.0 L MCV 86 MCH 28.9 MCHC 33.7 RDW 15.4 H Plt Count 327 Seg Neutrophils % Not Reportable VBG pH VBG pCO2 VBG HCO3 VBG Base Excess Sodium 134.7 L Potassium 3.9 Chloride 97 L Carbon Dioxide 21 L Anion Gap 17 BUN 15 Creatinine 1.00 Est GFR ( Amer) > 60 Glucose 635 H* Lactic Acid 2.2 H Calcium 8.8 Total Bilirubin 1.4 H AST 20 Alkaline Phosphatase 124 Total Protein 8.3 H Albumin 3.9 Urine Color Urine Appearance Urine pH Ur Specific [place] Urine Protein Urine Glucose (UA) Urine Ketones Urine Blood Urine Nitrite Ur Leukocyte Esterase Urine WBC (Auto) Urine RBC (Auto) 10/31/19 10/31/19 10/31/19 10:37 10:52 13:20 WBC RBC Hgb Hct MCV MCH MCHC RDW Plt Count Seg Neutrophils % VBG pH 7.47 H VBG pCO2 28.3 L VBG HCO3 20.0 VBG Base Excess -2.6 Sodium Potassium Chloride Carbon Dioxide Anion Gap BUN Creatinine Est GFR ( Amer) Glucose Lactic Acid 1.2 Calcium Total Bilirubin AST Alkaline Phosphatase Total Protein Albumin Urine Color YELLOW Urine Appearance CLEAR Urine pH 6.0 Ur Specific [place] 1.022 Urine Protein 30 H Urine Glucose (UA) >=500 H Urine Ketones TRACE H Urine Blood SMALL H Urine Nitrite NEGATIVE Ur Leukocyte Esterase NEGATIVE Urine WBC (Auto) 12 Urine RBC (Auto) 2 10/31/19 10:20 Troponin I 0.012 Impressions: Chest X-Ray 10/31/19 00:00 IMPRESSION: Dense consolidation in the posterior aspect of the right upper lobe and in the right posterior lower lobe. Findings are worrisome for pneumonia. Aspiration should be considered. Abdomen/Pelvis CT 10/31/19 11:06 IMPRESSION: 1. There is dense, heterogeneous consolidation of the included dependent right lower lobe with a trace associated pleural effusion. 2. No definite intraabdominal findings to explain right upper quadrant pain. 3. There is mild right hydronephrosis or hydroureter without evidence of distally obstructing or other urinary tract calculus. Findings may be related to mass effect of bulky uterine fibroids. Assessment and Plan - Diagnosis (1) Community acquired bacterial pneumonia Is this a current diagnosis for this admission?: Yes Plan: Chest x-ray image and abdominal CT image and reports reviewed by me which shows dense consolidation in the right upper and right lower lobe Influenza negative Check sputum culture Follow-up blood culture Levaquin Flutter valve, guaifenesin DM, nebs PRN (2) Sepsis with acute hypoxic respiratory failure Qualifiers: Sepsis type: sepsis due to unspecified organism Severe sepsis shock status: without septic shock Qualified Code(s): A41.9 - Sepsis, unspecified organism; R65.20 - Severe sepsis without septic shock; J96.01 - Acute respiratory failure with hypoxia Is this a current diagnosis for this admission?: Yes Plan: Sofa score of 3 with hypoxia IV fluids given -3 L normal saline Lactic acidosis resolved with IV fluids Oxygen supplementation as needed (3) Hyperglycemic hyperosmolar nonketotic coma Is this a current diagnosis for this admission?: Yes Plan: Secondary to poorly controlled type 2 diabetes and sepsis Blood sugar in the 600s on presentation with bicarb of 21 and only trace ketones Blood sugar improved to the 300s following administration of IV fluids and 10 units of subcu insulin We will give 10 units of subcutaneous lispro now At this moment, HHNK has resolved. (4) Type II diabetes mellitus Qualifiers: Diabetes mellitus intermediate card tender insulin use: without intermediate card tender use Diabetes mellitus complication status: with hyperglycemia Qualified Code(s): E11.65 - Type 2 diabetes mellitus with hyperglycemia Is this a current diagnosis for this admission?: Yes Plan: Patient takes only metformin twice a day at home Check hemoglobin A1c. Hold metformin for now given contrast CT. Start on lispro 7 units pre-meal and hold metformin for now. Continue sliding scale coverage. (5) Abdominal pain, vomiting, and diarrhea Is this a current diagnosis for this admission?: Yes Plan: Right flank pain likely secondary to pneumonia as patient has right posterior lower lobe infiltrates Zofran and Reglan as needed vomiting for which hypoglycemia may have been playing a role. If diarrhea persists frequently, will check C. difficile IV hydration and ensure adequate control of blood sugars Influenza negative CT of the abdomen was unrevealing as to the cause of her pain (6) Essential hypertension Is this a current diagnosis for this admission?: Yes Plan: Resume patient's home regimen of antihypertensives (7) LBBB (left bundle branch block) Is this a current diagnosis for this admission?: Yes Plan: Chronic. Will monitor. - Time Time Spent with patient: 35 or more minutes
--- NOTE | 2019-10-31 18:11 | ADVANCED CARE ---
- Diagnosis (1) Community acquired bacterial pneumonia Diagnosis Current: Yes (2) Sepsis with acute hypoxic respiratory failure Diagnosis Current: Yes (3) Hyperglycemic hyperosmolar nonketotic coma Diagnosis Current: Yes (4) Type II diabetes mellitus Diagnosis Current: Yes Attendance: Patient and myself Resuscitation Status: Full Code Discussion: I discussed CODE STATUS with patient and patient wants to be full code. She is okay with intubation even in the absence of cardiac arrest if needed to ensure adequate ventilation. She is also okay with IV pressors should she go into septic shock. Discussed current condition with her including her sepsis, hypoxic respiratory failure, pneumonia and HHN K. Patient is aware of the severity of these conditions. Patient also has daughters who are of adult age will also help with taking care of her. No documentations signed. Time Spent: 17 mins
[2019-10-31] MEDS: LIDOCAINE 5% (700 MG) TRANSDERMAL ADH..PATCH TP SCH (18:21)
[2019-10-31] MEDS: GUAIFENESIN/D-METHORPHAN (200-20 MG) SYRUP 10 ML PO SCH (18:29)
[2019-10-31] MEDS: LEVOFLOXACIN 750 MG/D5W RTU 750 MG/150 ML RTUPB IV SCH (18:29)
[2019-10-31] MEDS ORDERED: AMLODIPINE BESYLATE 5 MG TABLET PO ONE (19:30)
[2019-10-31] MEDS: INSULIN LISPRO 100 UNIT/ML 3 ML VIAL SUBCUT SCH (21:10)
[2019-11-01 06:02] LABS: PHOSPHORUS 2.2 mg/dL (2.5-4.5); TRIGLYCERIDES 120 mg/dL (<150)
[2019-11-01 06:18] LABS: DIRECT LDL 82 mg/dL (<100)
[2019-11-01] MEDS: IBUPROFEN 400 MG TABLET PO PRN ×2 (06:49→19:48)
[2019-11-01] MEDS: INSULIN LISPRO 100 UNIT/ML 3 ML VIAL SUBCUT SCH ×7 (08:18→21:47)
[2019-11-01] MEDS ORDERED: INSULIN NPH (ISOPHANE), HUMAN 100 UNIT/ML 3 ML SUBCUT ONE (08:30)
[2019-11-01 08:46] LABS: HEMATOCRIT 30.3 % (36.0-47.0); HEMOGLOBIN 10.4 g/dL (12.0-15.5); MEAN CORPUSCULAR HGB CONC 34.2 g/dL (32.0-36.0); MEAN CORPUSCULAR VOLUME 85 fl (80-97); PLATELET COUNT 295 10^3/uL (150-450); RED BLOOD COUNT 3.58 10^6/uL (3.72-5.28); RED CELL DISTRIBUTION WIDTH 15.2 % (11.5-14.0); WHITE BLOOD COUNT 18.1 10^3/uL (4.0-10.5)
[2019-11-01 09:04] LABS: ALBUMIN 2.8 g/dL (3.5-5.0); ALKALINE PHOSPHATASE 84 U/L (38-126); ANION GAP 13 (5-19); ASPARTATE AMINO TRANSFERASE 15 U/L (14-36); BILIRUBIN,DIRECT 0.7 mg/dL (0.0-0.4); BILIRUBIN,TOTAL 1.1 mg/dL (0.2-1.3); BLOOD UREA NITROGEN 8 mg/dL (7-20); CALCIUM 8.4 mg/dL (8.4-10.2); CARBON DIOXIDE 21 mmol/L (22-30); CHLORIDE 105 mmol/L (98-107); GLUCOSE 233 mg/dL (75-110); POTASSIUM 3.8 mmol/L (3.6-5.0); TOTAL PROTEIN 6.3 g/dL (6.3-8.2)
[2019-11-01 09:15] LABS: ABSOLUTE MONOCYTES # (MANUAL) 1.1 10^3/uL (0.1-1.4); ANISOCYTOSIS SLIGHT; BAND NEUTROPHILS % (MANUAL) 2 % (3-5); BASOPHILS % (MANUAL) 0 % (0-2); EOSINOPHILS % (MANUAL) 0 % (0-6); LYMPHOCYTES % (MANUAL) 11 % (13-45); MONOCYTES % (MANUAL) 6 % (3-13); SEGMENTED NEUTROPHILS % (MAN) 81 % (42-78); TOTAL CELLS COUNTED 100; TOXIC GRANULATION SLIGHT; TOXIC VACUOLATION PRESENT
[2019-11-01 09:16] LABS: PLATELET COMMENT ADEQUATE
[2019-11-01] MEDS: GUAIFENESIN/D-METHORPHAN (200-20 MG) SYRUP 10 ML PO SCH ×3 (12:06→17:02)
[2019-11-01] MEDS: LIDOCAINE 5% (700 MG) TRANSDERMAL ADH..PATCH TP SCH (12:06)
[2019-11-01] MEDS: ENOXAPARIN SODIUM INJ 40 MG/0.4 ML DISP.SYRIN SUBCUT SCH (12:06)
--- NOTE | 2019-11-01 12:51 | PDOC PROGRESS REPORT ---
Subjective Progress Note for:: 11/01/19 Subjective:: Patient is doing well and states that her breathing is better from yesterday. Still coughing. Denies any hemoptysis. Still admits to having several episodes of diarrhea. Reason For Visit: PNEUOMONIA Physical Exam Vital Signs: Temp Pulse Resp BP Pulse Ox 98.3 F 89 14 129/71 H 94 11/01/19 11:56 11/01/19 11:56 11/01/19 11:56 11/01/19 11:56 11/01/19 11:56 Pulse Oximeter Continuous Start: 10/31/19 16:28 Freq: RTQ4 Status: Active Protocol: Document 11/01/19 04:00 PMU (Rec: 11/01/19 06:06 PMU [id number]) Pulse Oximetry Assessment Oxygen Saturation (92-100) 95 Oxygen Flow Rate (L/min) 2 Oxygen Delivery Method Nasal Cannula Fraction of Inspired Oxygen (FIO2) 28 Equipment Usage Equipment in Use Continuous SpO2 Machine # [id number] Intake & Output 10/31/19 11/01/19 11/02/19 06:59 06:59 06:59 Intake Total 4090 Output Total 904 Balance 3186 Weight 96.1 kg General appearance: PRESENT: no acute distress, cooperative Neck exam: ABSENT: JVD Respiratory exam: PRESENT: chest wall tenderness, rhonchi, symmetrical, unlabored. ABSENT: accessory muscle use, retraction, tachypnea, wheezes Cardiovascular exam: PRESENT: RRR, +S1, +S2. ABSENT: tachycardia GI/Abdominal exam: PRESENT: normal bowel sounds, soft, tenderness - Right flank. ABSENT: firm, guarding, rebound, rigid Neurological exam: PRESENT: alert, awake, oriented to person, oriented to place, oriented to time, oriented to situation Results Laboratory Results: 11/01/19 05:29 11/01/19 05:29 10/31/19 10/31/19 10/31/19 10:30 13:20 16:56 WBC RBC Hgb Hct MCV MCH MCHC RDW Plt Count Seg Neutrophils % Sodium Potassium Chloride Carbon Dioxide Anion Gap BUN Creatinine Est GFR ( Amer) Glucose Lactic Acid 2.2 H 1.2 0.9 Calcium Phosphorus Magnesium Total Bilirubin AST Alkaline Phosphatase Total Protein Albumin Triglycerides Cholesterol LDL Cholesterol Direct VLDL Cholesterol HDL Cholesterol 11/01/19 11/01/19 11/01/19 05:29 05:29 05:29 WBC 18.1 H RBC 3.58 L Hgb 10.4 L Hct 30.3 L MCV 85 MCH 29.0 MCHC 34.2 RDW 15.2 H Plt Count 295 Seg Neutrophils % Not Reportable Sodium 139.0 Potassium 3.8 Chloride 105 Carbon Dioxide 21 L Anion Gap 13 BUN 8 Creatinine 0.69 Est GFR ( Amer) > 60 Glucose 233 H Lactic Acid Calcium 8.4 Phosphorus 2.2 L Magnesium 2.3 Total Bilirubin 1.1 AST 15 Alkaline Phosphatase 84 Total Protein 6.3 Albumin 2.8 L Triglycerides 120 Cholesterol 126.60 LDL Cholesterol Direct 82 VLDL Cholesterol 24.0 HDL Cholesterol 20 L 10/31/19 10:20 Troponin I 0.012 Impressions: Chest X-Ray 10/31/19 00:00 IMPRESSION: Dense consolidation in the posterior aspect of the right upper lobe and in the right posterior lower lobe. Findings are worrisome for pneumonia. Aspiration should be considered. Abdomen/Pelvis CT 10/31/19 11:06 IMPRESSION: 1. There is dense, heterogeneous consolidation of the included dependent right lower lobe with a trace associated pleural effusion. 2. No definite intraabdominal findings to explain right upper quadrant pain. 3. There is mild right hydronephrosis or hydroureter without evidence of distally obstructing or other urinary tract calculus. Findings may be related to mass effect of bulky uterine fibroids. Assessment and Plan - Diagnosis (1) Community acquired bacterial pneumonia Is this a current diagnosis for this admission?: Yes Plan: Chest x-ray image and abdominal CT image and reports reviewed by me which shows dense consolidation in the right upper and right lower lobe Influenza negative Follow-up blood and sputum culture Levaquin Flutter valve, guaifenesin DM, nebs PRN (2) Sepsis with acute hypoxic respiratory failure Qualifiers: Sepsis type: sepsis due to unspecified organism Severe sepsis shock status: without septic shock Qualified Code(s): A41.9 - Sepsis, unspecified organism; R65.20 - Severe sepsis without septic shock; J96.01 - Acute respiratory failure with hypoxia Is this a current diagnosis for this admission?: Yes Plan: Sepsis syndrome is resolved. Hypoxic respiratory failure resolved as patient is now on room air. (3) Type II diabetes mellitus Qualifiers: Diabetes mellitus superintendent container terminal insulin use: without correction use Diabetes mellitus complication status: with hyperglycemia Qualified Code(s): E11.65 - Type 2 diabetes mellitus with hyperglycemia Is this a current diagnosis for this admission?: Yes Plan: Patient will need to be transitioned to insulin regimen given A1c of 10 Blood glucose still uncontrolled Continue lispro 7 units AC and start Lantus 12 units nightly. I will bridge to nighttime by giving NPH 7 units this morning. Continue sliding scale and Accu-Cheks (4) Hyperglycemic hyperosmolar nonketotic coma Is this a current diagnosis for this admission?: Yes Plan: HH NK resolved (5) Abdominal pain, vomiting, and diarrhea Is this a current diagnosis for this admission?: Yes Plan: Right flank pain likely secondary to pneumonia as patient has right posterior lower lobe infiltrates Zofran and Reglan as needed vomiting Given persistence of diarrhea, I will check C. difficile IV hydration and ensure adequate control of blood sugars Influenza negative CT of the abdomen was unrevealing as to the cause of her pain (6) Essential hypertension Is this a current diagnosis for this admission?: Yes Plan: She has a history of hypertension but med reconciliation by pharmacy states that she is not on any meds. I will verify with her and start her on lisinopril. (7) LBBB (left bundle branch block) Is this a current diagnosis for this admission?: Yes Plan: Chronic. Will monitor. - Time Time Spent with patient: 15-24 minutes
[2019-11-01] MEDS ORDERED: LISINOPRIL 10 MG TABLET PO ONE (13:30)
[2019-11-01] MEDS ORDERED: PHOSPHORUS #1 250 MG TABLET PO ONE (14:00)
[2019-11-01] MEDS: LEVOFLOXACIN 750 MG/D5W RTU 750 MG/150 ML RTUPB IV SCH (17:02)
[2019-11-01] MEDS ORDERED: INSULIN LISPRO 100 UNIT/ML 3 ML VIAL SUBCUT ONE (17:15)
[2019-11-01 19:58] LABS: C DIFFICILE GDH NEGATIVE (NEGATIVE)
[2019-11-01] MEDS ORDERED: INSULIN GLARGINE,HUM.REC.ANLOG 1,000 UNIT/10 ML VIAL SUBCUT SCH (22:00)
[2019-11-02 05:23] LABS: ABSOLUTE MONOCYTES (AUTO) 0.7 10^3/uL (0.1-1.4); ABSOLUTE NEUT (AUTO) 15.2 10^3/uL (1.7-8.2); BASOPHILS % (AUTO) 0.2 % (0-2); EOSINOPHILS % (AUTO) 0.1 % (0-6); HEMATOCRIT 31.7 % (36.0-47.0); HEMOGLOBIN 10.8 g/dL (12.0-15.5); LYMPHOCYTES % (AUTO) 5.9 % (13-45); MEAN CORPUSCULAR HEMOGLOBIN 28.8 pg (27.0-33.4); MEAN CORPUSCULAR VOLUME 85 fl (80-97); MONOCYTES % (AUTO) 4.2 % (3-13); PLATELET COUNT 374 10^3/uL (150-450); RED BLOOD COUNT 3.74 10^6/uL (3.72-5.28); RED CELL DISTRIBUTION WIDTH 15.3 % (11.5-14.0); SEGMENTED NEUTROPHILS % (AUTO) 89.6 % (42-78); TOTAL CELLS COUNTED % (AUTO) 100 %; WHITE BLOOD COUNT 16.9 10^3/uL (4.0-10.5)
[2019-11-02] MEDS: INSULIN LISPRO 100 UNIT/ML 3 ML VIAL SUBCUT SCH ×8 (07:44→21:11)
[2019-11-02] MEDS ORDERED: ONDANSETRON HCL INJ/PF 4 MG/2 ML SDV IV PRN (08:00)
[2019-11-02] MEDS: ENOXAPARIN SODIUM INJ 40 MG/0.4 ML DISP.SYRIN SUBCUT SCH (09:44)
[2019-11-02] MEDS: LIDOCAINE 5% (700 MG) TRANSDERMAL ADH..PATCH TP SCH (09:44)
[2019-11-02] MEDS: GUAIFENESIN/D-METHORPHAN (200-20 MG) SYRUP 10 ML PO SCH ×3 (09:45→17:49)
--- NOTE | 2019-11-02 09:45 | PDOC PROGRESS REPORT ---
Subjective Progress Note for:: 11/02/19 Subjective:: Patient does not recollect much improvement in shortness of breath between yesterday to today. Oxygen levels have however been very good in the high 90s though on 2 L which I suspect was just placed for comfort. Still having some chest wall pain when she coughs. Had a few episodes of diarrhea. Complains of swelling of her left distal fourth finger which has progressed since she was picking on her nail bed Wednesday. Reason For Visit: PNEUOMONIA Physical Exam Vital Signs: Temp Pulse Resp BP Pulse Ox 97.5 F 91 16 131/70 H 100 11/02/19 07:13 11/02/19 07:13 11/02/19 07:13 11/02/19 07:13 11/02/19 07:13 Pulse Oximeter Continuous Start: 10/31/19 16:28 Freq: RTQ4 Status: Active Protocol: Document 11/02/19 04:13 CMI (Rec: 11/02/19 04:16 CMI [id number]) Pulse Oximetry Assessment Oxygen Saturation (92-100) 99 Oxygen Flow Rate (L/min) 2 Oxygen Delivery Method Nasal Cannula Fraction of Inspired Oxygen (FIO2) 28 Equipment Usage Equipment in Use Continuous Pulse Oximeter 24 Hour Charge Charge Now Continuous SpO2 Machine # 11 Intake & Output 11/01/19 11/02/19 11/03/19 06:59 06:59 06:59 Intake Total 4090 2220 Output Total 904 Balance 3186 2220 Weight 96.1 kg 98 kg General appearance: PRESENT: no acute distress, cooperative Neck exam: ABSENT: JVD Respiratory exam: PRESENT: chest wall tenderness, crackles - Right lung, symmetrical, unlabored. ABSENT: tachypnea, wheezes Cardiovascular exam: PRESENT: RRR, +S1, +S2. ABSENT: tachycardia GI/Abdominal exam: PRESENT: normal bowel sounds, soft. ABSENT: hyperactive bowel sounds, mass, rebound, rigid Extremities exam: PRESENT: joint swelling - Swelling over left fourth finger with some tenderness and fluctuance. ABSENT: calf tenderness, +1 edema, +2 edema Neurological exam: PRESENT: alert, awake, oriented to person, oriented to place, oriented to time Results Laboratory Results: 11/02/19 04:19 11/01/19 05:29 11/02/19 11/02/19 04:19 04:19 WBC 16.9 H RBC 3.74 Hgb 10.8 L Hct 31.7 L MCV 85 MCH 28.8 MCHC 34.0 RDW 15.3 H Plt Count 374 Seg Neutrophils % 89.6 H Phosphorus 4.0 10/31/19 10:20 Troponin I 0.012 Impressions: Chest X-Ray 10/31/19 00:00 IMPRESSION: Dense consolidation in the posterior aspect of the right upper lobe and in the right posterior lower lobe. Findings are worrisome for pneumonia. Aspiration should be considered. Abdomen/Pelvis CT 10/31/19 11:06 IMPRESSION: 1. There is dense, heterogeneous consolidation of the included dependent right lower lobe with a trace associated pleural effusion. 2. No definite intraabdominal findings to explain right upper quadrant pain. 3. There is mild right hydronephrosis or hydroureter without evidence of distally obstructing or other urinary tract calculus. Findings may be related to mass effect of bulky uterine fibroids. Assessment and Plan - Diagnosis (1) Community acquired bacterial pneumonia Is this a current diagnosis for this admission?: Yes Plan: Chest x-ray image and abdominal CT image and reports reviewed by me which shows dense consolidation in the right upper and right lower lobe Influenza negative Blood cultures negative after 24 hours Sputum culture growing some gram-positive cocci Continue Levaquin day 3 I will augment regimen with vancomycin day 1 given insufficient improvement of symptoms and very slow downtrending of leukocytosis Flutter valve, guaifenesin DM, nebs PRN (2) Sepsis with acute hypoxic respiratory failure Qualifiers: Sepsis type: sepsis due to unspecified organism Severe sepsis shock status: without septic shock Qualified Code(s): A41.9 - Sepsis, unspecified organism; R65.20 - Severe sepsis without septic shock; J96.01 - Acute respiratory failure with hypoxia Is this a current diagnosis for this admission?: Yes Plan: Sepsis syndrome is resolved. Hypoxic respiratory failure resolved. (3) Type II diabetes mellitus Qualifiers: Diabetes mellitus bed bug exterminator insulin use: without bed bug exterminator use Diabetes mellitus complication status: with hyperglycemia Qualified Code(s): E11.65 - Type 2 diabetes mellitus with hyperglycemia Is this a current diagnosis for this admission?: Yes Plan: Patient transitioned to insulin regimen given A1c of 10 Blood glucose still uncontrolled Regimen adjusted to lispro 8 units AC and Lantus 18 units nightly. Continue sliding scale and Accu-Cheks conservation educator for insulin administration (4) Hyperglycemic hyperosmolar nonketotic coma Is this a current diagnosis for this admission?: Yes Plan: HH NK resolved (5) Abdominal pain, vomiting, and diarrhea Is this a current diagnosis for this admission?: Yes Plan: Right flank pain likely secondary to pneumonia as patient has right posterior lower lobe infiltrates C. difficile negative. If diarrhea persist by tomorrow we will start on Imodium. Influenza negative CT of the abdomen was unrevealing as to the cause of her pain Did not eat much yesterday. Will give gentle IV hydration continue antiemetics. (6) Swelling of left ring finger Is this a current diagnosis for this admission?: Yes Plan: Noted to be fluctuant and swollen. Patient states she was picking at nail bed on Wednesday and has been swollen ever since. I will have orthopedics evaluate to see if incision and drainage is needed. (7) Essential hypertension Is this a current diagnosis for this admission?: Yes Plan: Lisinopril 20 mg daily (8) LBBB (left bundle branch block) Is this a current diagnosis for this admission?: Yes - Time Time Spent with patient: 15-24 minutes
[2019-11-02] MEDS ORDERED: VANCOMYCIN HCL INJ 1000 MG VIAL IV SCH (10:00)
[2019-11-02] MEDS ORDERED: VANCOMYCIN HCL 1,250 MG in DEXTROSE 5%-WATER 250 ML IV SCH (10:30)
[2019-11-02] MEDS: VANCOMYCIN HCL 1,250 MG in DEXTROSE 5%-WATER 250 ML IV SCH ×2 (11:42→21:13)
[2019-11-02] MEDS: LISINOPRIL 10 MG TABLET PO SCH (11:50)
[2019-11-02] MEDS: ACETAMINOPHEN 325 MG TABLET PO PRN (13:00)
[2019-11-02] MEDS: IBUPROFEN 400 MG TABLET PO PRN (13:01)
--- NOTE | 2019-11-02 14:04 | PDOC CONSULTATION ---
Consultation Consult Date: 11/02/19 Provider Consulted: TAHIR BELLE JR History of Present Illness Admission Date/PCP: 10/31/19 15:58 History of Present Illness: SHEMAR CONTEH is a 54 year old female who presented for pneumonia, and since this past Wednesday she has had increased swelling in her left fourth finger at the nail bed which has progressed to become more painful and fluctuant. She denies introducing any foreign objects into right but she was picking at it she feels that it became infected. Pain is a 5 out of 10 worse with motion and palpation, improved with pain medications, burning and sore in nature. Past Medical History Cardiac Medical History: Reports: Hyperlipidema, Hypertension, Heart Murmur Pulmonary Medical History: Reports: Bronchitis Denies: Tuberculosis Neurological Medical History: Reports: Seizures - Told stress related, having started when her 2011. On Dilantin Endocrine Medical History: Reports: Diabetes Mellitus Type 2 Musculoskeltal Medical History: Reports: Arthritis Psychiatric Medical History: Denies: Depression Hematology: Reports: Anemia Denies: Hemophilia, Sickle Cell Disease Past Surgical History Past Surgical History: Reports: Section, Orthopedic Surgery - r shoulder w hardware, Tonsillectomy Social History Lives with: Family - [facility] Smoking Status: Never Smoker Electronic Cigarette use?: No Frequency of Alcohol Use: None Hx Recreational Drug Use: No Hx Prescription Drug Abuse: No - Advance Directive Resuscitation Status: Full Code Family History Family History: CVA, DM, Hyperlipidemia, Hypertension, Malignancy - Father, T hyroid Disfunction Parental Family History Reviewed: No Children Family History Reviewed: NA Sibling(s) Family History Reviewed.: NA Medication/Allergy Home Medications: Lisinopril [Zestril] 20 mg PO DAILY 11/02/19 Allergies/Adverse Reactions: No Known Allergies Allergy (Verified 05/03/19 08:22) Review of Systems Review of Systems: Constitutional: ABSENT: anorexia, chills, night sweats Cardiovascular: ABSENT: chest pain Respiratory: Present: Minor dyspnea Gastrointestinal: ABSENT: vomiting Genitourinary: ABSENT: dysuria Integumentary: ABSENT: rash Neurological: ABSENT: confusion, memory loss, numbness Psychiatric: ABSENT: hallucinations Hematologic/Lymphatic: ABSENT: easy bleeding All negative as above aside from that reported in the HPI and the following: Pain with motion of her left fourth finger Physical Exam Vital Signs: Temp Pulse Resp BP Pulse Ox 97.5 F 110 H 16 131/70 H 92 11/02/19 07:13 11/02/19 08:00 11/02/19 08:00 11/02/19 07:13 11/02/19 12:00 Pulse Oximeter Continuous Start: 10/31/19 16:28 Freq: RTQ4 Status: Active Protocol: Document 11/02/19 12:00 HCR (Rec: 11/02/19 12:00 HCR [id number]) Pulse Oximetry Assessment Oxygen Saturation (92-100) 92 Oxygen Delivery Method Room Air Fraction of Inspired Oxygen (FIO2) 21 Equipment Usage Equipment Standby Continuous SpO2 Machine # 11 Intake & Output 11/01/19 11/02/19 11/03/19 06:59 06:59 06:59 Intake Total 4090 2220 Output Total 904 Balance 3186 2220 Weight 96.1 kg 98 kg Physical Exam: General appearance: PRESENT: no acute distress, cooperative, well-nourished Head exam: PRESENT: atraumatic, normocephalic Eye exam: PRESENT: EOMI Ear exam: PRESENT: normal external ear exam Mouth exam: PRESENT: neck supple Neck exam: ABSENT: tracheal deviation Respiratory exam: PRESENT: symmetrical, unlabored. ABSENT: accessory muscle use, wheezes Pulses: PRESENT: normal radial pulses, normal dorsalis pedis pulse Vascular exam: PRESENT: normal capillary refill GI/Abdominal exam: ABSENT: distended, firm Extremities exam: PRESENT: full ROM of bilateral shoulders, elbows wrists, knees, hips and ankles without pain Musculoskeletal exam: PRESENT: full ROM, normal inspection of all 4 extremities aside from that noted below. Neurological exam: PRESENT: alert, awake, oriented to person, oriented to place, oriented to time Psychiatric exam: PRESENT: appropriate affect. ABSENT: agitated Focused psych exam: ABSENT: catatonic Skin exam: PRESENT: intact. ABSENT: dry All as above aside from that noted in the HPI and the following: Right upper extremity exam -sensation grossly intact to radial median and ulnar nerve. -upper extremity motor function grossly intact to radian median ulnar nerve AIN and PIN -Pulses 2+, capillary refill less than 2 seconds -No deformity noted full range of motion of the elbow shoulder wrist and fingers without pain aside from the paronychia of the left fourth finger that has some fluctuance, apparent purulence underneath the superficial layer of skin, pain to palpation, pain to motion of the DIP joint, no active drainage. Results Laboratory Results: 11/02/19 04:19 11/01/19 05:29 11/02/19 11/02/19 04:19 04:19 WBC 16.9 H RBC 3.74 Hgb 10.8 L Hct 31.7 L MCV 85 MCH 28.8 MCHC 34.0 RDW 15.3 H Plt Count 374 Seg Neutrophils % 89.6 H Phosphorus 4.0 10/31/19 10:20 Troponin I 0.012 Impressions: Chest X-Ray 10/31/19 00:00 IMPRESSION: Dense consolidation in the posterior aspect of the right upper lobe and in the right posterior lower lobe. Findings are worrisome for pneumonia. Aspiration should be considered. Abdomen/Pelvis CT 10/31/19 11:06 IMPRESSION: 1. There is dense, heterogeneous consolidation of the included dependent right lower lobe with a trace associated pleural effusion. 2. No definite intraabdominal findings to explain right upper quadrant pain. 3. There is mild right hydronephrosis or hydroureter without evidence of distally obstructing or other urinary tract calculus. Findings may be related to mass effect of bulky uterine fibroids. Assessment & Plan - Diagnosis (1) Paronychia of finger of left hand Plan: She is currently on antibiotics which may be suppressing further infectious spread however we will perform a I&D at the bedside later this afternoon and send cultures for more focused antibiotic treatment. Afterwards we will consider regular daily soaks and local wound care.
[2019-11-02] MEDS ORDERED: LIDOCAINE 1% INJ-PF (10 MG/ML) 30 ML SDV ONE (16:19)
--- NOTE | 2019-11-02 17:30 | Operative Report ---
Operative Report DATE OF SURGERY: 11/02/19 PREOPERATIVE DIAGNOSIS: Left fourth finger paronychia and abscess POSTOPERATIVE DIAGNOSIS: Left fourth finger paronychia and abscess OPERATION: Left fourth finger I&D SURGEON: TAHIR BELLE JR ANESTHESIA: Local COMPLICATIONS: none ESTIMATED BLOOD LOSS: minimal PROCEDURE: The volar aspect of the hand was prepped in sterile fashion with alcohol prep pads. Approximately 5 cc of 1% lidocaine were applied volarly at the branch of the digital nerves. Following adequate analgesia the left upper extremity was then prepped and draped with Betadine solution in sterile fashion. A small incision was made over the radial aspect of the nail fold and [place] purulence was expressed. The abscess was superficial and a superficial layer of skin was then debrided down to healthy skin. The wound was then copiously irrigated with dilute Betadine solution and a sterile dressing was placed. Patient tolerated the procedure well.
[2019-11-02] MEDS: INSULIN GLARGINE,HUM.REC.ANLOG 1,000 UNIT/10 ML VIAL SUBCUT SCH (21:12)
[2019-11-02] MEDS: PHARMACY COMMUNICATION ORDER MC SCH (21:13)
[2019-11-02] MEDS ORDERED: LEVOFLOXACIN 750 MG TABLET PO SCH (22:00)
[2019-11-03 05:32] LABS: ABSOLUTE LYMPHOCYTES (AUTO) 1.2 10^3/uL (0.5-4.7); ABSOLUTE MONOCYTES (AUTO) 0.8 10^3/uL (0.1-1.4); ABSOLUTE NEUT (AUTO) 15.9 10^3/uL (1.7-8.2); HEMOGLOBIN 11.1 g/dL (12.0-15.5); LYMPHOCYTES % (AUTO) 6.8 % (13-45); MEAN CORPUSCULAR HEMOGLOBIN 28.6 pg (27.0-33.4); MEAN CORPUSCULAR HGB CONC 33.8 g/dL (32.0-36.0); MEAN CORPUSCULAR VOLUME 85 fl (80-97); MONOCYTES % (AUTO) 4.3 % (3-13); PLATELET COUNT 425 10^3/uL (150-450); RED BLOOD COUNT 3.89 10^6/uL (3.72-5.28); RED CELL DISTRIBUTION WIDTH 15.5 % (11.5-14.0); SEGMENTED NEUTROPHILS % (AUTO) 88.9 % (42-78); TOTAL CELLS COUNTED % (AUTO) 100 %; WHITE BLOOD COUNT 17.9 10^3/uL (4.0-10.5)
[2019-11-03 05:48] LABS: ALBUMIN 2.8 g/dL (3.5-5.0); ALKALINE PHOSPHATASE 103 U/L (38-126); ANION GAP 12 (5-19); ASPARTATE AMINO TRANSFERASE 26 U/L (14-36); BILIRUBIN,DIRECT 0.3 mg/dL (0.0-0.4); BILIRUBIN,TOTAL 0.5 mg/dL (0.2-1.3); BLOOD UREA NITROGEN 11 mg/dL (7-20); CARBON DIOXIDE 28 mmol/L (22-30); CHLORIDE 103 mmol/L (98-107); GLUCOSE 158 mg/dL (75-110); POTASSIUM 3.5 mmol/L (3.6-5.0); TOTAL PROTEIN 6.6 g/dL (6.3-8.2)
--- NOTE | 2019-11-03 07:49 | PDOC PROGRESS REPORT ---
Subjective Progress Note for:: 11/03/19 Subjective:: Patient is doing well this morning. Reports improvement in symptoms. No new symptoms overnight no new events Reason For Visit: PNEUOMONIA Physical Exam Vital Signs: Temp Pulse Resp BP Pulse Ox 97.7 F 102 H 16 148/79 H 92 11/02/19 23:00 11/02/19 23:00 11/02/19 23:00 11/02/19 23:00 11/02/19 23:54 Pulse Oximeter Continuous Start: 10/31/19 16:28 Freq: RTQ4 Status: Active Protocol: Document 11/03/19 04:00 CMI (Rec: 11/03/19 04:28 CMI [id number]) Pulse Oximetry Assessment Equipment Usage Equipment Standby Continuous SpO2 Machine # 11 Intake & Output 11/02/19 11/03/19 11/04/19 06:59 06:59 06:59 Intake Total 0 1995 Balance 0 1995 Weight 98 kg 99.1 kg Physical Exam: Left fourth finger, with scant recurrent drainage, otherwise healthy in appearance, sensation is grossly intact, no progression of cellulitis or apparent infection. Results Laboratory Results: 11/03/19 04:35 11/03/19 04:35 11/03/19 11/03/19 04:35 04:35 WBC 17.9 H RBC 3.89 Hgb 11.1 L Hct 33.0 L MCV 85 MCH 28.6 MCHC 33.8 RDW 15.5 H Plt Count 425 Seg Neutrophils % 88.9 H Sodium 143.0 Potassium 3.5 L Chloride 103 Carbon Dioxide 28 Anion Gap 12 BUN 11 Creatinine 0.64 Est GFR ( Amer) > 60 Glucose 158 H Calcium 9.0 Total Bilirubin 0.5 AST 26 Alkaline Phosphatase 103 Total Protein 6.6 Albumin 2.8 L 10/31/19 21:15 Sputum Gram Stain - Final 10/31/19 10:20 Troponin I 0.012 Impressions: Chest X-Ray 10/31/19 00:00 IMPRESSION: Dense consolidation in the posterior aspect of the right upper lobe and in the right posterior lower lobe. Findings are worrisome for pneumonia. Aspiration should be considered. Abdomen/Pelvis CT 10/31/19 11:06 IMPRESSION: 1. There is dense, heterogeneous consolidation of the included dependent right lower lobe with a trace associated pleural effusion. 2. No definite intraabdominal findings to explain right upper quadrant pain. 3. There is mild right hydronephrosis or hydroureter without evidence of distally obstructing or other urinary tract calculus. Findings may be related to mass effect of bulky uterine fibroids. Assessment & Plan - Diagnosis (1) Paronychia of finger of left hand Is this a current diagnosis for this admission?: Yes Plan: -Plan for 3 times daily soaks while in house, I will follow for continued wound management. -Cultures pending. -Apply nonadherent dressings in between soaks - Time Time Spent with patient: Less than 15 minutes
[2019-11-03] MEDS ORDERED: POTASSIUM CHLORIDE 10 MEQ TABLET.ER PO ONE (07:51)
[2019-11-03] MEDS: INSULIN LISPRO 100 UNIT/ML 3 ML VIAL SUBCUT SCH ×7 (08:11→23:12)
[2019-11-03] MEDS: ACETAMINOPHEN 325 MG TABLET PO PRN (08:19)
[2019-11-03] MEDS: NORMAL SALINE 1000 ML 1,000 ML IV PRN (08:21)
[2019-11-03] MEDS: ENOXAPARIN SODIUM INJ 40 MG/0.4 ML DISP.SYRIN SUBCUT SCH (09:25)
[2019-11-03] MEDS: LIDOCAINE 5% (700 MG) TRANSDERMAL ADH..PATCH TP SCH (09:26)
[2019-11-03] MEDS: GUAIFENESIN/D-METHORPHAN (200-20 MG) SYRUP 10 ML PO SCH ×3 (09:30→17:34)
[2019-11-03] MEDS: LISINOPRIL 10 MG TABLET PO SCH (09:37)
[2019-11-03] MEDS ORDERED: METRONIDAZOLE 500 MG/NS RTU 500 MG/100 ML RTUPB IV SCH (10:00)
[2019-11-03] MEDS: VANCOMYCIN HCL 1,250 MG in DEXTROSE 5%-WATER 250 ML IV SCH ×2 (11:17→23:23)
[2019-11-03] MEDS ORDERED: LOPERAMIDE HCL 2 MG CAPSULE PO PRN (13:23)
--- NOTE | 2019-11-03 13:30 | PDOC PROGRESS REPORT ---
Subjective Progress Note for:: 11/03/19 Subjective:: Patient still complaining of some shortness of breath. Cough is still persisting and still hard to expectorate. Has some pain in her left finger and is status post I&D done at bedside today. Still complaining of chest wall tenderness and pain provoked by coughing so much. Reason For Visit: PNEUOMONIA Physical Exam Vital Signs: Temp Pulse Resp BP Pulse Ox 98.8 F 94 16 127/76 H 96 11/03/19 11:14 11/03/19 11:14 11/03/19 11:14 11/03/19 11:14 11/03/19 11:14 Pulse Oximeter Continuous Start: 10/31/19 16:28 Freq: RTQ4 Status: Complete Protocol: Document 11/03/19 12:00 HCR (Rec: 11/03/19 12:19 HCR [email or web address]) Pulse Oximetry Assessment Equipment Usage Equipment Discontinued Continuous SpO2 Machine # 11 Intake & Output 11/02/19 11/03/19 11/04/19 06:59 06:59 06:59 Intake Total 2220 1995 Balance 2221995 Weight 98 kg 99.1 kg General appearance: PRESENT: no acute distress, cooperative Neck exam: ABSENT: JVD Respiratory exam: PRESENT: chest wall tenderness - Chest pain reproducible on palpation, crackles, rhonchi, symmetrical, unlabored. ABSENT: tachypnea, wheezes Cardiovascular exam: PRESENT: RRR, +S1, +S2. ABSENT: tachycardia GI/Abdominal exam: PRESENT: normal bowel sounds, soft, tenderness. ABSENT: distended, firm, guarding, rebound, rigid Extremities exam: PRESENT: other - Left ring finger incised Neurological exam: PRESENT: alert, awake, oriented to person, oriented to place, oriented to time Results Laboratory Results: 11/03/19 04:35 11/03/19 04:35 11/03/19 11/03/19 04:35 04:35 WBC 17.9 H RBC 3.89 Hgb 11.1 L Hct 33.0 L MCV 85 MCH 28.6 MCHC 33.8 RDW 15.5 H Plt Count 425 Seg Neutrophils % 88.9 H Sodium 143.0 Potassium 3.5 L Chloride 103 Carbon Dioxide 28 Anion Gap 12 BUN 11 Creatinine 0.64 Est GFR ( Amer) > 60 Glucose 158 H Calcium 9.0 Total Bilirubin 0.5 AST 26 Alkaline Phosphatase 103 Total Protein 6.6 Albumin 2.8 L 10/31/19 21:15 Sputum Gram Stain - Final 10/31/19 21:15 Sputum Sputum Culture - Final Mrsa (Meth Resis Staph Aureus) Normal Melita 10/31/19 10:20 Troponin I 0.012 Impressions: Chest X-Ray 10/31/19 00:00 IMPRESSION: Dense consolidation in the posterior aspect of the right upper lobe and in the right posterior lower lobe. Findings are worrisome for pneumonia. Aspiration should be considered. Abdomen/Pelvis CT 10/31/19 11:06 IMPRESSION: 1. There is dense, heterogeneous consolidation of the included dependent right lower lobe with a trace associated pleural effusion. 2. No definite intraabdominal findings to explain right upper quadrant pain. 3. There is mild right hydronephrosis or hydroureter without evidence of distally obstructing or other urinary tract calculus. Findings may be related to mass effect of bulky uterine fibroids. Assessment and Plan - Diagnosis (1) Community acquired bacterial pneumonia Is this a current diagnosis for this admission?: Yes Plan: Chest x-ray image and abdominal CT image and reports reviewed by me which shows dense consolidation in the right upper and right lower lobe Influenza negative Blood cultures negative Sputum culture growing some MRSA Continue Levaquin day 3 and vancomycin day 2 Flutter valve, guaifenesin DM, nebs PRN. Add Mucomyst to help with expectoration. (2) Abscess of left ring finger Is this a current diagnosis for this admission?: Yes Plan: s/p I&D by orthopedics 11/03/2019 Pain control, wound dressing and follow-up wound culture (3) Type II diabetes mellitus Qualifiers: Diabetes mellitus termite treater insulin use: without termite treater use Diabetes mellitus complication status: with hyperglycemia Qualified Code(s): E11.65 - Type 2 diabetes mellitus with hyperglycemia Is this a current diagnosis for this admission?: Yes Plan: Patient transitioned to insulin regimen given A1c of 10 Blood glucose better controlled today Continue lispro 8 units AC and Lantus 18 units nightly. Continue sliding scale and Accu-Cheks (4) Acute costochondritis Is this a current diagnosis for this admission?: Yes Plan: Associated with current respiratory tract infection Robitussin-DM, lidocaine patch, Tylenol and Motrin as needed (5) Diarrhea Qualifiers: Diarrhea type: unspecified type Qualified Code(s): R19.7 - Diarrhea, unspecified Is this a current diagnosis for this admission?: Yes Plan: C. difficile negative Start Imodium. Give a dose now and continue as needed. (6) Essential hypertension Is this a current diagnosis for this admission?: Yes Plan: Lisinopril 20 mg daily (7) LBBB (left bundle branch block) Is this a current diagnosis for this admission?: Yes Plan: Chronic. Stable (8) Hyperglycemic hyperosmolar nonketotic coma Is this a current diagnosis for this admission?: Yes Plan: HH NK resolved (9) Sepsis with acute hypoxic respiratory failure Qualifiers: Sepsis type: sepsis due to unspecified organism Severe sepsis shock status: without septic shock Qualified Code(s): A41.9 - Sepsis, unspecified organism; R65.20 - Severe sepsis without septic shock; J96.01 - Acute respiratory failure with hypoxia Is this a current diagnosis for this admission?: Yes Plan: Sepsis syndrome is resolved. Hypoxic respiratory failure resolved.
[2019-11-03] MEDS ORDERED: LOPERAMIDE HCL 2 MG CAPSULE PO ONE (14:30)
[2019-11-03] MEDS ORDERED: ACETYLCYSTEINE 10% NEB 400 MG/4 ML VIAL NEB SCH (15:00)
[2019-11-03] MEDS: LEVOFLOXACIN 750 MG/D5W RTU 750 MG/150 ML RTUPB IV SCH (17:33)
[2019-11-03] MEDS: ACETAMINOPHEN WITH CODEINE #3 TABLET PO PRN (20:01)
[2019-11-03] MEDS: IPRATROPIUM/ALBUTEROL 0.5-2.5 MG/3 ML AMPUL NEB SCH (20:15)
[2019-11-03] MEDS: ACETYLCYSTEINE 20% SOLN 800 MG/4 ML VIAL.NEB NEB SCH (20:15)
[2019-11-03 23:07] LABS: VANCOMYCIN,TROUGH 9.5 ug/mL (5.0-20.0)
[2019-11-03] MEDS: INSULIN GLARGINE,HUM.REC.ANLOG 1,000 UNIT/10 ML VIAL SUBCUT SCH (23:10)
[2019-11-03] MEDS: PHARMACY COMMUNICATION ORDER MC SCH (23:24)
[2019-11-04] MEDS: METOCLOPRAMIDE HCL INJ/PF 10 MG/2 ML SDV IV PRN ×2 (04:19→22:11)
[2019-11-04 05:56] LABS: ABSOLUTE MONOCYTES (AUTO) 0.7 10^3/uL (0.1-1.4); ABSOLUTE NEUT (AUTO) 12.7 10^3/uL (1.7-8.2); BASOPHILS % (AUTO) 0.2 % (0-2); HEMATOCRIT 30.9 % (36.0-47.0); HEMOGLOBIN 10.6 g/dL (12.0-15.5); MEAN CORPUSCULAR HEMOGLOBIN 29.1 pg (27.0-33.4); MEAN CORPUSCULAR HGB CONC 34.2 g/dL (32.0-36.0); MEAN CORPUSCULAR VOLUME 85 fl (80-97); MONOCYTES % (AUTO) 4.8 % (3-13); PLATELET COUNT 382 10^3/uL (150-450); RED BLOOD COUNT 3.64 10^6/uL (3.72-5.28); RED CELL DISTRIBUTION WIDTH 15.7 % (11.5-14.0); TOTAL CELLS COUNTED % (AUTO) 100 %; WHITE BLOOD COUNT 14.4 10^3/uL (4.0-10.5)
[2019-11-04 06:18] LABS: ANION GAP 8 (5-19); BLOOD UREA NITROGEN 9 mg/dL (7-20); CALCIUM 8.6 mg/dL (8.4-10.2); CARBON DIOXIDE 30 mmol/L (22-30); CHLORIDE 102 mmol/L (98-107); GLUCOSE 239 mg/dL (75-110); POTASSIUM 3.8 mmol/L (3.6-5.0)
--- NOTE | 2019-11-04 07:38 | PDOC PROGRESS REPORT ---
Subjective Progress Note for:: 11/04/19 Subjective:: The patient is doing well this morning. She reports much improvement in her finger pain and ability to perform range of motion exercises. She has had no acute events overnight. Reason For Visit: PNEUOMONIA Physical Exam Vital Signs: Temp Pulse Resp BP Pulse Ox 98.8 F 107 H 18 139/80 H 97 11/03/19 16:01 11/03/19 20:16 11/03/19 20:16 11/03/19 16:01 11/03/19 20:16 Pulse Oximeter Continuous Start: 10/31/19 16:28 Freq: RTQ4 Status: Complete Protocol: Document 11/03/19 12:00 HCR (Rec: 11/03/19 12:19 HCR [email or web address]) Pulse Oximetry Assessment Equipment Usage Equipment Discontinued Continuous SpO2 Machine # 11 Intake & Output 11/03/19 11/04/19 11/05/19 06:59 06:59 06:59 Intake Total 1995 1950 Balance 1995 1950 Weight 99.1 kg 71.1 kg Physical Exam: Left fourth finger appears much healthier since prior to procedure, improved over yesterday as well. There is no recurrence of any purulence. No increased swelling. It is clean and dry. Sensation grossly intact Results Laboratory Results: 11/04/19 05:30 11/04/19 05:30 11/03/19 11/04/19 11/04/19 21:39 05:30 05:30 WBC 14.4 H RBC 3.64 L Hgb 10.6 L Hct 30.9 L MCV 85 MCH 29.1 MCHC 34.2 RDW 15.7 H Plt Count 382 Seg Neutrophils % 88.0 H Sodium 139.8 Potassium 3.8 Chloride 102 Carbon Dioxide 30 Anion Gap 8 BUN 9 Creatinine 0.53 0.50 L Est GFR ( Amer) > 60 > 60 Glucose 239 H Calcium 8.6 10/31/19 21:15 Sputum Gram Stain - Final 10/31/19 21:15 Sputum Sputum Culture - Final Mrsa (Meth Resis Staph Aureus) Normal Melita 10/31/19 10:20 Troponin I 0.012 Impressions: Chest X-Ray 10/31/19 00:00 IMPRESSION: Dense consolidation in the posterior aspect of the right upper lobe and in the right posterior lower lobe. Findings are worrisome for pneumonia. Aspiration should be considered. Abdomen/Pelvis CT 10/31/19 11:06 IMPRESSION: 1. There is dense, heterogeneous consolidation of the included dependent right lower lobe with a trace associated pleural effusion. 2. No definite intraabdominal findings to explain right upper quadrant pain. 3. There is mild right hydronephrosis or hydroureter without evidence of distally obstructing or other urinary tract calculus. Findings may be related to mass effect of bulky uterine fibroids. Assessment & Plan - Diagnosis (1) Paronychia of finger of left hand Is this a current diagnosis for this admission?: Yes Plan: Cultures are pending, consider 7-10 days of antibiotics depending on the results, if negative clindamycin would be appropriate -Continue soaks while in house -Dressing change as needed -Encourage range of motion of the hand -Contact orthopedics for any other needs - Time Time Spent with patient: Less than 15 minutes
[2019-11-04] MEDS: INSULIN LISPRO 100 UNIT/ML 3 ML VIAL SUBCUT SCH ×7 (08:03→22:11)
[2019-11-04] MEDS: NORMAL SALINE 1000 ML 1,000 ML IV PRN (08:05)
[2019-11-04] MEDS: IPRATROPIUM/ALBUTEROL 0.5-2.5 MG/3 ML AMPUL NEB SCH ×2 (08:21→20:46)
[2019-11-04] MEDS: ACETYLCYSTEINE 20% SOLN 800 MG/4 ML VIAL.NEB NEB SCH ×2 (08:22→20:48)
[2019-11-04] MEDS: METFORMIN HCL 500 MG TABLET PO SCH ×2 (08:30→16:41)
[2019-11-04] MEDS: ACETAMINOPHEN WITH CODEINE #3 TABLET PO PRN ×2 (08:35→16:40)
[2019-11-04] MEDS: GUAIFENESIN/D-METHORPHAN (200-20 MG) SYRUP 10 ML PO SCH ×3 (10:25→17:52)
[2019-11-04] MEDS: ENOXAPARIN SODIUM INJ 40 MG/0.4 ML DISP.SYRIN SUBCUT SCH (10:25)
[2019-11-04] MEDS: LISINOPRIL 10 MG TABLET PO SCH (10:26)
[2019-11-04] MEDS: LIDOCAINE 5% (700 MG) TRANSDERMAL ADH..PATCH TP SCH (10:26)
[2019-11-04] MEDS: VANCOMYCIN HCL 1,000 MG in DEXTROSE 5%-WATER 250 ML IV SCH ×2 (10:27→19:20)
--- NOTE | 2019-11-04 10:55 | PDOC PROGRESS REPORT ---
Subjective Progress Note for:: 11/04/19 Subjective:: Patient endorses feeling better today. States that breathing is a lot better. Diarrhea has improved. Had an episode of nausea this morning but otherwise getting better. Able to cough out a lot more sputum now. Overall feels like she is improving today. Reason For Visit: PNEUOMONIA Physical Exam Vital Signs: Temp Pulse Resp BP Pulse Ox 99.1 F 91 18 134/72 H 97 11/04/19 08:00 11/04/19 08:23 11/04/19 08:23 11/04/19 08:00 11/04/19 08:23 Pulse Oximeter Continuous Start: 10/31/19 16:28 Freq: RTQ4 Status: Complete Protocol: Document 11/03/19 12:00 HCR (Rec: 11/03/19 12:19 HCR [email or web address]) Pulse Oximetry Assessment Equipment Usage Equipment Discontinued Continuous SpO2 Machine # 11 Intake & Output 11/03/19 11/04/19 11/05/19 06:59 06:59 06:59 Intake Total 1995 2950 Balance 1995 2950 Weight 99.1 kg 71.1 kg General appearance: PRESENT: no acute distress, cooperative Neck exam: ABSENT: JVD Respiratory exam: PRESENT: chest wall tenderness, symmetrical, unlabored. ABSENT: accessory muscle use, retraction, tachypnea, wheezes Cardiovascular exam: PRESENT: RRR, +S1, +S2. ABSENT: tachycardia GI/Abdominal exam: PRESENT: normal bowel sounds, soft, tenderness. ABSENT: distended, firm, guarding, rebound, rigid Extremities exam: PRESENT: other - Incised left ring finger with less swelling Neurological exam: PRESENT: alert, awake, oriented to person, oriented to place, oriented to time, oriented to situation Results Laboratory Results: 11/04/19 05:30 11/04/19 05:30 11/03/19 11/04/19 11/04/19 21:39 05:30 05:30 WBC 14.4 H RBC 3.64 L Hgb 10.6 L Hct 30.9 L MCV 85 MCH 29.1 MCHC 34.2 RDW 15.7 H Plt Count 382 Seg Neutrophils % 88.0 H Sodium 139.8 Potassium 3.8 Chloride 102 Carbon Dioxide 30 Anion Gap 8 BUN 9 Creatinine 0.53 0.50 L Est GFR ( Amer) > 60 > 60 Glucose 239 H Calcium 8.6 10/31/19 21:15 Sputum Gram Stain - Final 10/31/19 21:15 Sputum Sputum Culture - Final Mrsa (Meth Resis Staph Aureus) Normal Melita 10/31/19 10:20 Troponin I 0.012 Impressions: Chest X-Ray 10/31/19 00:00 IMPRESSION: Dense consolidation in the posterior aspect of the right upper lobe and in the right posterior lower lobe. Findings are worrisome for pneumonia. Aspiration should be considered. Abdomen/Pelvis CT 10/31/19 11:06 IMPRESSION: 1. There is dense, heterogeneous consolidation of the included d ependent right lower lobe with a trace associated pleural effusion. 2. No definite intraabdominal findings to explain right upper quadrant pain. 3. There is mild right hydronephrosis or hydroureter without evidence of distally obstructing or other urinary tract calculus. Findings may be related t o mass effect of bulky uterine fibroids. Assessment and Plan - Diagnosis (1) Community acquired bacterial pneumonia Is this a current diagnosis for this admission?: Yes Plan: Patient feeling better today leukocytosis is now downtrending significantly Blood cultures negative Sputum culture growing MRSA Continue Levaquin day 5 and vancomycin day 3 Flutter valve, guaifenesin DM, nebs PRN. Mucomyst really seems to be helping patient. (2) Abscess of left ring finger Is this a current diagnosis for this admission?: Yes Plan: s/p I&D by orthopedics 11/03/2019 Pain control, wound dressing and follow-up wound culture now growing gram- positive cocci. Already on vancomycin (3) Type II diabetes mellitus Qualifiers: Diabetes mellitus correction insulin use: without correction use Diabetes mellitus complication status: with hyperglycemia Qualified Code(s): E11.65 - Type 2 diabetes mellitus with hyperglycemia Is this a current diagnosis for this admission?: Yes Plan: Patient transitioned to insulin regimen given A1c of 10. Continue lispro 8 units AC and Lantus 18 units nightly. Resume metformin which patient states she uses at home. 750 mg twice daily with meals. (4) Acute costochondritis Is this a current diagnosis for this admission?: Yes Plan: Associated with current respiratory tract infection Robitussin-DM, lidocaine patch, Tylenol #3 and Motrin as needed (5) Diarrhea Qualifiers: Diarrhea type: unspecified type Qualified Code(s): R19.7 - Diarrhea, unspecified Is this a current diagnosis for this admission?: Yes Plan: C. difficile negative. Improving significantly with Imodium as needed. (6) Essential hypertension Is this a current diagnosis for this admission?: Yes Plan: Lisinopril 20 mg daily (7) LBBB (left bundle branch block) Is this a current diagnosis for this admission?: Yes Plan: Chronic. Stable (8) Hyperglycemic hyperosmolar nonketotic coma Is this a current diagnosis for this admission?: Yes Plan: HH NK resolved (9) Sepsis with acute hypoxic respiratory failure Qualifiers: Sepsis type: sepsis due to unspecified organism Severe sepsis shock status: without septic shock Qualified Code(s): A41.9 - Sepsis, unspecified organism; R65.20 - Severe sepsis without septic shock; J96.01 - Acute respiratory failure with hypoxia Is this a current diagnosis for this admission?: Yes Plan: Sepsis syndrome is resolved. Hypoxic respiratory failure resolved. - Time Time Spent with patient: 15-24 minutes - Inpatient Certification Based on my medical assessment, after consideration of the patient's comorbidities, presenting symptoms, or acuity I expect that the services needed warrant INPATIENT care.: Yes Medical Necessity: Risk of Complication if Not Cared For in Hospital
[2019-11-04] MEDS: LEVOFLOXACIN 750 MG/D5W RTU 750 MG/150 ML RTUPB IV SCH (17:25)
[2019-11-04] MEDS: INSULIN GLARGINE,HUM.REC.ANLOG 1,000 UNIT/10 ML VIAL SUBCUT SCH (22:12)
[2019-11-04] MEDS: PHARMACY COMMUNICATION ORDER MC SCH (22:13)
[2019-11-05] MEDS: VANCOMYCIN HCL 1,000 MG in DEXTROSE 5%-WATER 250 ML IV SCH ×3 (02:37→18:41)
[2019-11-05 05:22] LABS: ABSOLUTE MONOCYTES (AUTO) 0.8 10^3/uL (0.1-1.4); ABSOLUTE NEUT (AUTO) 9.5 10^3/uL (1.7-8.2); BASOPHILS % (AUTO) 0.2 % (0-2); EOSINOPHILS % (AUTO) 0.1 % (0-6); HEMATOCRIT 28.9 % (36.0-47.0); MEAN CORPUSCULAR HEMOGLOBIN 29.3 pg (27.0-33.4); MEAN CORPUSCULAR HGB CONC 34.7 g/dL (32.0-36.0); MEAN CORPUSCULAR VOLUME 85 fl (80-97); PLATELET COUNT 398 10^3/uL (150-450); RED BLOOD COUNT 3.42 10^6/uL (3.72-5.28); RED CELL DISTRIBUTION WIDTH 15.4 % (11.5-14.0); SEGMENTED NEUTROPHILS % (AUTO) 83.7 % (42-78); TOTAL CELLS COUNTED % (AUTO) 100 %; WHITE BLOOD COUNT 11.4 10^3/uL (4.0-10.5)
[2019-11-05] MEDS: METFORMIN HCL 500 MG TABLET PO SCH ×2 (07:57→16:37)
[2019-11-05] MEDS: INSULIN LISPRO 100 UNIT/ML 3 ML VIAL SUBCUT SCH ×7 (07:58→22:22)
[2019-11-05] MEDS: ACETAMINOPHEN WITH CODEINE #3 TABLET PO PRN ×2 (08:03→18:42)
[2019-11-05] MEDS: ACETYLCYSTEINE 20% SOLN 800 MG/4 ML VIAL.NEB NEB SCH ×2 (08:26→21:12)
[2019-11-05] MEDS: IPRATROPIUM/ALBUTEROL 0.5-2.5 MG/3 ML AMPUL NEB SCH ×2 (08:26→21:12)
[2019-11-05] MEDS: LISINOPRIL 10 MG TABLET PO SCH (10:35)
[2019-11-05] MEDS: GUAIFENESIN/D-METHORPHAN (200-20 MG) SYRUP 10 ML PO SCH ×3 (10:35→18:41)
[2019-11-05] MEDS: ENOXAPARIN SODIUM INJ 40 MG/0.4 ML DISP.SYRIN SUBCUT SCH (10:35)
[2019-11-05] MEDS: LIDOCAINE 5% (700 MG) TRANSDERMAL ADH..PATCH TP SCH (10:36)
--- NOTE | 2019-11-05 12:47 | PDOC PROGRESS REPORT ---
Subjective Progress Note for:: 11/05/19 Subjective:: Patient still complaining of pain in her right lower chest wall mostly over her lower ribs and the right upper quadrant. Did have an episode of vomiting today. Otherwise, shortness of breath is improved. Cough still persistent but also improving. Leukocytosis has significantly improved at this point. Reason For Visit: PNEUOMONIA Physical Exam Vital Signs: Temp Pulse Resp BP Pulse Ox 98.4 F 92 18 142/70 H 92 11/05/19 12:00 11/05/19 12:00 11/05/19 12:00 11/05/19 11:00 11/05/19 12:00 Pulse Oximeter Continuous Start: 10/31/19 16:28 Freq: RTQ4 Status: Complete Protocol: Document 11/03/19 12:00 HCR (Rec: 11/03/19 12:19 HCR [email or web address]) Pulse Oximetry Assessment Equipment Usage Equipment Discontinued Continuous SpO2 Machine # 11 Intake & Output 11/04/19 11/05/19 11/06/19 06:59 06:59 06:59 Intake Total 2950 2864 240 Balance 2950 2864 240 Weight 71.1 kg 73 kg General appearance: PRESENT: no acute distress, cooperative Neck exam: ABSENT: JVD Respiratory exam: PRESENT: chest wall tenderness - Significantly tender over her right 10th and 11th rib, clear to auscultation morelia, symmetrical, unlabored. ABSENT: tachypnea, wheezes Cardiovascular exam: PRESENT: RRR, +S1, +S2. ABSENT: tachycardia GI/Abdominal exam: PRESENT: normal bowel sounds, soft, tenderness - Right upper quadrant but mostly over her ribs. ABSENT: rebound, rigid Neurological exam: PRESENT: alert, awake, oriented to person, oriented to place, oriented to time Results Laboratory Results: 11/05/19 04:41 11/05/19 09:38 11/05/19 11/05/19 04:41 09:38 WBC 11.4 H RBC 3.42 L Hgb 10.0 L Hct 28.9 L MCV 85 MCH 29.3 MCHC 34.7 RDW 15.4 H Plt Count 398 Seg Neutrophils % 83.7 H Creatinine 0.52 Est GFR ( Amer) > 60 10/31/19 11:39 Blood Blood Culture - Final NO GROWTH IN 5 DAYS 11/03/19 07:50 Finger - Left Ring Finger Gram Stain - Final 11/03/19 07:50 Finger - Left Ring Finger Wound Culture - Final Mrsa (Meth Resis Staph Aureus) 10/31/19 10:20 Blood Blood Culture - Final NO GROWTH IN 5 DAYS 10/31/19 10:20 Troponin I 0.012 Impressions: Chest X-Ray 10/31/19 00:00 IMPRESSION: Dense consolidation in the posterior aspect of the right upper lobe and in the right posterior lower lobe. Findings are worrisome for pneumonia. Aspiration should be considered. Abdomen/Pelvis CT 10/31/19 11:06 IMPRESSION: 1. There is dense, heterogeneous consolidation of the included dependent right lower lobe with a trace associated pleural effusion. 2. No definite intraabdominal findings to explain right upper quadrant pain. 3. There is mild right hydronephrosis or hydroureter without evidence of distally obstructing or other urinary tract calculus. Findings may be related to mass effect of bulky uterine fibroids. Assessment and Plan - Diagnosis (1) Community acquired bacterial pneumonia Is this a current diagnosis for this admission?: Yes Plan: Sputum culture growing MRSA leukocytosis is downtrending significantly Blood cultures negative Sputum culture growing MRSA Continue Levaquin day 6/7 and vancomycin day 4 Flutter valve, guaifenesin DM, nebs PRN. Mucomyst really seems to be helping patient. Check repeat chest x-ray given significant complaints of pain over right lower chest wall mostly involving rib and the right upper quadrant. May get a limited ultrasound to evaluate this especially given persistence of nausea. (2) Abscess of left ring finger Is this a current diagnosis for this admission?: Yes Plan: s/p I&D by orthopedics 11/03/2019 Pain control, wound dressing and follow-up wound culture growing MRSA. Already on vancomycin (3) Type II diabetes mellitus Qualifiers: Diabetes mellitus mcc insulin use: without mcc use Diabetes mellitus complication status: with hyperglycemia Qualified Code(s): E11.65 - Type 2 diabetes mellitus with hyperglycemia Is this a current diagnosis for this admission?: Yes Plan: Patient transitioned to insulin regimen given A1c of 10. Lispro 8 units AC and Lantus 18 units nightly. Metformin 750 mg twice daily. (4) Acute costochondritis Is this a current diagnosis for this admission?: Yes Plan: Associated with current respiratory tract infection. Robitussin-DM, lidocaine patch, Tylenol #3 and Motrin as needed. (5) Diarrhea Qualifiers: Diarrhea type: unspecified type Qualified Code(s): R19.7 - Diarrhea, unspecified Is this a current diagnosis for this admission?: Yes Plan: C. difficile negative. Resolved. Imodium as needed. (6) Essential hypertension Is this a current diagnosis for this admission?: Yes Plan: Lisinopril 20 mg daily (7) LBBB (left bundle branch block) Is this a current diagnosis for this admission?: Yes Plan: Chronic. Stable (8) Hyperglycemic hyperosmolar nonketotic coma Is this a current diagnosis for this admission?: Yes Plan: HH NK resolved (9) Sepsis with acute hypoxic respiratory failure Qualifiers: Sepsis type: sepsis due to unspecified organism Severe sepsis shock status: without septic shock Qualified Code(s): A41.9 - Sepsis, unspecified organism; R65.20 - Severe sepsis without septic shock; J96.01 - Acute respiratory failure with hypoxia Is this a current diagnosis for this admission?: Yes Plan: Sepsis syndrome is resolved. Hypoxic respiratory failure resolved. - Time Time Spent with patient: 15-24 minutes
--- NOTE | 2019-11-05 14:11 | RADIOLOGY REPORT (SQ) ---
EXAM DESCRIPTION: CHEST 2 VIEWS COMPLETED DATE/TIME: 11/05/2019 1:55 pm REASON FOR STUDY: Lower right-sided chest pain COMPARISON: 10/31/2019 EXAM PARAMETERS: NUMBER OF VIEWS: two views TECHNIQUE: Digital Frontal and Lateral radiographic views of the chest acquired. RADIATION DOSE: NA LIMITATIONS: none FINDINGS: LUNGS AND PLEURA: Persistent airspace disease in the right upper lobe and right lower lobe . No evidence of cavitation. Left lung is clear. MEDIASTINUM AND HILAR STRUCTURES: No masses or contour abnormalities. HEART AND VASCULAR STRUCTURES: Heart normal size. No evidence for failure. BONES: No acute findings. HARDWARE: None in the chest. OTHER: No other significant finding. IMPRESSION: Right upper and lower lobe pneumonia. No significant change. TECHNICAL DOCUMENTATION: JOB ID: [id number] [employer]- All Rights Reserved Reading location - IP/workstation name: [email or web address]
--- NOTE | 2019-11-05 14:13 | RADIOLOGY REPORT (SQ) ---
EXAM DESCRIPTION: U/S ABDOMEN LIMITED W/O DOP COMPLETED DATE/TIME: 11/05/2019 1:51 pm REASON FOR STUDY: pain in ruq over right lower chest COMPARISON: None. TECHNIQUE: Dynamic and static grayscale images acquired of the abdomen and recorded on PACS. Additio nal selected color Doppler and spectral images recorded. LIMITATIONS: None. FINDINGS: PANCREAS: No masses. Visualized pancreatic duct normal caliber. LIVER: No masses. Echotexture normal. LIVER VASCULATURE: Normal directional flow of the main portal vein and hepatic veins. GALLBLADDER: Sludge. No stones. Normal wall thickness. No pericholecystic fluid. ULTRASOUND-DETECTED NELSON'S SIGN: Negative. INTRAHEPATIC DUCTS AND COMMON DUCT: CBD and intrahepatic ducts normal caliber. No filling defects. INFERIOR VENA CAVA: Normal flow. AORTA: No aneurysm. RIGHT KIDNEY: Mild hydronephrosis. PERITONEAL AND RIGHT PLEURAL SPACE: No ascites or effusions. OTHER: No other significant findings. IMPRESSION: Gallbladder sludge. No evidence of acute cholecystitis. Mild right hydronephrosis. TECHNICAL DOCUMENTATION: JOB ID: [id number]- All Rights Reserved Reading location - IP/workstation name: [email or web address]
[2019-11-05] MEDS ORDERED: LEVOFLOXACIN 750 MG TABLET PO SCH (18:00)
[2019-11-05] MEDS: METOCLOPRAMIDE HCL INJ/PF 10 MG/2 ML SDV IV PRN (22:07)
[2019-11-05] MEDS: INSULIN GLARGINE,HUM.REC.ANLOG 1,000 UNIT/10 ML VIAL SUBCUT SCH (22:08)
[2019-11-05] MEDS: PHARMACY COMMUNICATION ORDER MC SCH (22:22)
[2019-11-06] MEDS: VANCOMYCIN HCL 1,000 MG in DEXTROSE 5%-WATER 250 ML IV SCH ×3 (01:19→17:02)
[2019-11-06 07:13] LABS: ABSOLUTE MONOCYTES (AUTO) 0.7 10^3/uL (0.1-1.4); ABSOLUTE NEUT (AUTO) 8.3 10^3/uL (1.7-8.2); BASOPHILS % (AUTO) 0.5 % (0-2); EOSINOPHILS % (AUTO) 0.2 % (0-6); HEMATOCRIT 29.1 % (36.0-47.0); HEMOGLOBIN 9.9 g/dL (12.0-15.5); LYMPHOCYTES % (AUTO) 10.1 % (13-45); MEAN CORPUSCULAR HEMOGLOBIN 29.1 pg (27.0-33.4); MEAN CORPUSCULAR HGB CONC 34.1 g/dL (32.0-36.0); MEAN CORPUSCULAR VOLUME 85 fl (80-97); MONOCYTES % (AUTO) 7.1 % (3-13); PLATELET COUNT 428 10^3/uL (150-450); RED BLOOD COUNT 3.42 10^6/uL (3.72-5.28); RED CELL DISTRIBUTION WIDTH 15.4 % (11.5-14.0); SEGMENTED NEUTROPHILS % (AUTO) 82.1 % (42-78); TOTAL CELLS COUNTED % (AUTO) 100 %; WHITE BLOOD COUNT 10.1 10^3/uL (4.0-10.5)
[2019-11-06] MEDS: METFORMIN HCL 500 MG TABLET PO SCH ×2 (07:31→17:02)
[2019-11-06] MEDS: INSULIN LISPRO 100 UNIT/ML 3 ML VIAL SUBCUT SCH ×6 (07:31→17:02)
[2019-11-06 07:33] LABS: ALBUMIN 2.5 g/dL (3.5-5.0); ALKALINE PHOSPHATASE 99 U/L (38-126); ANION GAP 7 (5-19); ASPARTATE AMINO TRANSFERASE 31 U/L (14-36); BILIRUBIN,DIRECT 0.3 mg/dL (0.0-0.4); BILIRUBIN,TOTAL 0.6 mg/dL (0.2-1.3); BLOOD UREA NITROGEN 5 mg/dL (7-20); CALCIUM 8.2 mg/dL (8.4-10.2); CARBON DIOXIDE 30 mmol/L (22-30); CHLORIDE 100 mmol/L (98-107); GLUCOSE 118 mg/dL (75-110); POTASSIUM 4.1 mmol/L (3.6-5.0); TOTAL PROTEIN 6.2 g/dL (6.3-8.2)
[2019-11-06] MEDS: IPRATROPIUM/ALBUTEROL 0.5-2.5 MG/3 ML AMPUL NEB SCH (07:59)
[2019-11-06] MEDS: ACETYLCYSTEINE 20% SOLN 800 MG/4 ML VIAL.NEB NEB SCH (07:59)
[2019-11-06] MEDS: LIDOCAINE 5% (700 MG) TRANSDERMAL ADH..PATCH TP SCH (10:22)
[2019-11-06] MEDS: ENOXAPARIN SODIUM INJ 40 MG/0.4 ML DISP.SYRIN SUBCUT SCH (10:23)
[2019-11-06] MEDS: LISINOPRIL 10 MG TABLET PO SCH (10:23)
[2019-11-06] MEDS: GUAIFENESIN/D-METHORPHAN (200-20 MG) SYRUP 10 ML PO SCH ×3 (10:23→17:46)
--- NOTE | 2019-11-06 12:20 | PDOC DISCHARGE SUMMARY ---
Impression - Admit/DC Date/PCP Admission Date/Primary Care Provider: 10/31/19 15:58 Discharge Date: 11/06/19 - Discharge Diagnosis (1) Community acquired bacterial pneumonia Is this a current diagnosis for this admission?: Yes (2) Abscess of left ring finger Is this a current diagnosis for this admission?: Yes (3) Type II diabetes mellitus Is this a current diagnosis for this admission?: Yes (4) Acute costochondritis Is this a current diagnosis for this admission?: Yes (5) Diarrhea Is this a current diagnosis for this admission?: Yes (6) Essential hypertension Is this a current diagnosis for this admission?: Yes (7) LBBB (left bundle branch block) Is this a current diagnosis for this admission?: Yes (8) Hyperglycemic hyperosmolar nonketotic coma Is this a current diagnosis for this admission?: Yes (9) Sepsis with acute hypoxic respiratory failure Is this a current diagnosis for this admission?: Yes - Assessment Summary: Patient was admitted for treatment of pneumonia noted on chest x-ray involving her right upper or right lower lobes. Patient also had abdominal CT done on admission which showed no intra-abdominal process besides mild right hydronephrosis without stones and confirmed right lower lobe consolidation. Patient was notably tachycardic but without hypotension. Patient was septic with endorgan damage and acute respiratory failure with hypoxia given her elevated sofa score and significant hypoxia on room air. Blood cultures were obtained and patient was started on empiric antibiotic therapy with Levaquin. Sputum culture was also obtained which later on grew MRSA given suspicion of MRSA or as 1 of the bacteria to caused patient's pneumonia. Vancomycin was subsequently added to patient's regimen. Patient's leukocytosis has down trended and is back to normal at this time. With antibiotic treatment and IV fluids, patient sepsis and acute hypoxic respiratory failure resolved. Patient's SPO2 has been good on room air for the past several days now. During this hospitalization, patient also complained of right lower rib pain/ruq pain and chest pain with significant reproducibility on palpation secondary to costochondritis and diaphragmatic irritation from excessive coughing and respi ratory tract infection. Right upper quadrant ultrasound showed no biliary tract obstruction nor cholecystitis. Patient has received lidocaine patch, NSAIDs as well as Tylenol 3 to help with this. Patient was also treated for left ring finger abscess which was drained by orthopedics and grew MRSA. Patient is to continue dressing at the site. Patient has completed 7-day therapy with Levaquin for the pneumonia and has received 4 days of vancomycin for MRSA coverage and is to continue doxycycline for 4 more days for treatment of MRSA pneumonia and MRSA abscess of the left ring finger. Patient also presented in NK with blood sugars over 600 and mild acidosis with trace ketosis which was treated with aggressive IV fluids and subcutaneous insulin. She was subsequently transitioned to insulin after hemoglobin A1c was noted to be over 10. Patient was previously only taking metformin at home. Patient is to continue taking metformin and this started on Lantus 18 units nightly and lispro 8 units AC with adequate control of blood sugars now. Patient being discharged in safe stable conditions and asked to follow-up with her primary care provider. - Additional Information Resuscitation Status: Full Code Discharge Diet: Diabetic Discharge Activity: Activity As Tolerated Referrals: [facility] [Outside] Prescriptions: Insulin Glargine,Hum.rec.anlog [Basaglar Kwikpen U-100] 18 unit SQ QHS #4 insuln.pen Metformin HCl [Glucophage 500 mg Tablet] 750 mg PO BIDACBS 30 Days tablet Insulin Lispro [Humalog Insulin (Lispro) 100 unit/mL] 8 unit SUBCUT AC #10 ml Lidocaine [Lidoderm 5% (700 mg) Transdermal Patch] 1 patch TP DAILY #10 adh..pat ch Guaifenesin/D-Methorphan Hb [Robitussin-Dm Syrup 10 ml Udcup] 10 ml PO TIDP PRN #200 ml PRN Reason: Cough Acetaminophen with Codeine [Tylenol #3 Tablet] 2 each PO Q6HP PRN #12 tablet PRN Reason: For Pain Doxycycline Hyclate [Vibramycin 100 mg Tablet] 100 mg PO BID 4 Days #8 tablet Ondansetron [Zofran Odt 4 mg Tablet] 1 - 2 tab PO Q4HP PRN #10 tab.rapdis PRN Reason: For Nausea/Vomiting Home Medications: Lisinopril [Zestril] 20 mg PO DAILY 11/02/19 Acetaminophen with Codeine [Tylenol #3 Tablet] 2 each PO Q6HP PRN #12 tablet 11/06/19 Doxycycline Hyclate [Vibramycin 100 mg Tablet] 100 mg PO BID 4 Days #8 tablet 11/06/19 Guaifenesin/D-Methorphan Hb [Robitussin-Dm Syrup 10 ml Udcup] 10 ml PO TIDP PRN #200 ml 11/06/19 Ibuprofen [Motrin 400 mg Tablet] 400 mg PO Q8HP PRN tablet 11/06/19 Insulin Glargine,Hum.rec.anlog [Basaglar Kwikpen U-100] 18 unit SQ QHS #4 insuln.pen 11/06/19 Insulin Lispro [Humalog Insulin (Lispro) 100 unit/mL] 8 unit SUBCUT AC #10 ml 11/06/19 Lidocaine [Lidoderm 5% (700 mg) Transdermal Patch] 1 patch TP DAILY #10 adh..patch 11/06/19 Metformin HCl [Glucophage 500 mg Tablet] 750 mg PO BIDACBS 30 Days tablet 11/06/19 Ondansetron [Zofran Odt 4 mg Tablet] 1 - 2 tab PO Q4HP PRN #10 tab.rapdis 11/06/19 History of Present Illiness History of Present Illness: SHEMAR CONTEH is a 54 year old female with history of type 2 diabetes mellitus, hypertension, seizures, who presents to the hospital with complaints of cough, right-sided flank pain as well as fever. Patient has been having a viral syndrome characterized by diarrhea, rhinorrhea, cough for the past 2 weeks. Cough became progressive with some production of greenish sputum. She is also experienced fevers. Endorses some shortness of breath as well. Lack of improvement of her symptoms prompted her to come to the emergency department for evaluation. She also complains of associated diarrhea and had 6 episodes yesterday. She has also had vomiting for the past 4 days which has limited her oral intake. Physical Exam Vital Signs: Temp Pulse Resp BP Pulse Ox 98.8 F 104 H 16 143/84 H 97 11/06/19 07:34 11/06/19 07:59 11/06/19 07:59 11/06/19 07:34 11/06/19 07:59 Pulse Oximeter Continuous Start: 10/31/19 16:28 Freq: RTQ4 Status: Complete Protocol: Document 11/03/19 12:00 HCR (Rec: 11/03/19 12:19 HCR [id number]) Pulse Oximetry Assessment Equipment Usage Equipment Discontinued Continuous SpO2 Machine # 11 Intake & Output 11/05/19 11/06/19 11/07/19 06:59 06:59 06:59 Intake Total 8982 4820 Balance 3474 1880 Weight 73 kg 74.8 kg General appearance: PRESENT: no acute distress, cooperative Neck exam: ABSENT: JVD Respiratory exam: PRESENT: chest wall tenderness, clear to auscultation more[place], unl abored. ABSENT: accessory muscle use, retraction Neurological exam: PRESENT: alert, awake Results Laboratory Results: WBC 10.1 10^3/uL (4.0-10.5) 11/06/19 06:50 RBC 3.42 10^6/uL (3.72-5.28) L 11/06/19 06:50 Hgb 9.9 g/dL (12.0-15.5) L 11/06/19 06:50 Hct 29.1 % (36.0-47.0) L 11/06/19 06:50 MCV 85 fl (80-97) 11/06/19 06:50 MCH 29.1 pg (27.0-33.4) 11/06/19 06:50 MCHC 34.1 g/dL (32.0-36.0) 11/06/19 06:50 RDW 15.4 % (11.5-14.0) H 11/06/19 06:50 Plt Count 428 10^3/uL (150-450) 11/06/19 06:50 Lymph % (Auto) 10.1 % (13-45) L 11/06/19 06:50 [place] % (Auto) 7.1 % (3-13) 11/06/19 06:50 Eos % (Auto) 0.2 % (0-6) 11/06/19 06:50 Baso % (Auto) 0.5 % (0-2) 11/06/19 06:50 Absolute Neuts (auto) 8.3 10^3/uL (1.7-8.2) H 11/06/19 06:50 Absolute Lymphs (auto) 1.0 10^3/uL (0.5-4.7) 11/06/19 06:50 Absolute Monos (auto) 0.7 10^3/uL (0.1-1.4) 11/06/19 06:50 Absolute Eos (auto) 0.0 10^3/uL (0.0-0.6) 11/06/19 06:50 Absolute Basos (auto) 0.0 10^3/uL (0.0-0.2) 11/06/19 06:50 Total Counted 100 11/01/19 05:29 Seg Neutrophils % 82.1 % (42-78) H 11/06/19 06:50 Seg Neuts % (Manual) 81 % (42-78) H 11/01/19 05:29 Band Neutrophils % 2 % (3-5) L 11/01/19 05:29 Lymphocytes % (Manual) 11 % (13-45) L 11/01/19 05:29 Monocytes % (Manual) 6 % (3-13) 11/01/19 05:29 Eosinophils % (Manual) 0 % (0-6) 11/01/19 05:29 Basophils % (Manual) 0 % (0-2) 11/01/19 05:29 Abs Neuts (Manual) 15.0 10^3/uL (1.7-8.2) H 11/01/19 05:29 Abs Lymphs (Manual) 2.0 10^3/uL (0.5-4.7) 11/01/19 05:29 Abs Monocytes (Manual) 1.1 10^3/uL (0.1-1.4) 11/01/19 05:29 Absolute Eos (Manual) 0.0 10^3/uL (0.0-0.6) 11/01/19 05:29 Abs Basophils (Manual) 0.0 10^3/uL (0.0-0.2) 11/01/19 05:29 Toxic Granulation SLIGHT 11/01/19 05:29 Toxic Vacuolation PRESENT 11/01/19 05:29 Platelet Comment ADEQUATE 11/01/19 05:29 Anisocytosis SLIGHT 11/01/19 05:29 PT 15.2 SEC (11.4-15.4) 10/31/19 10:20 INR 1.19 10/31/19 10:20 VBG pH 7.47 (7.30-7.42) H 10/31/19 10:52 VBG pCO2 28.3 mmHg (35-63) L 10/31/19 10:52 VBG HCO3 20.0 mmol/L (20-32) 10/31/19 10:52 VBG Base Excess -2.6 mmol/L 10/31/19 10:52 Sodium 137.3 mmol/L (137-145) 11/06/19 06:50 Potassium 4.1 mmol/L (3.6-5.0) 11/06/19 06:50 Chloride 100 mmol/L (98-107) 11/06/19 06:50 Carbon Dioxide 30 mmol/L (22-30) 11/06/19 06:50 Anion Gap 7 (5-19) 11/06/19 06:50 BUN 5 mg/dL (7-20) L 11/06/19 06:50 Creatinine 0.47 mg/dL (0.52-1.25) L 11/06/19 06:50 Est GFR ( Amer) > 60 (>60) 11/06/19 06:50 Est GFR (MDRD) Non-Af > 60 (>60) 11/06/19 06:50 Glucose 118 mg/dL (75-110) H 11/06/19 06:50 POC Glucose 152 mg/dL (70-110) H 11/06/19 11:32 Hemoglobin A1c % 10.8 % (4.7-6.0) H 11/01/19 05:29 Lactic Acid 0.9 mmol/L (0.7-2.1) 10/31/19 16:56 Calcium 8.2 mg/dL (8.4-10.2) L 11/06/19 06:50 Phosphorus 4.0 mg/dL (2.5-4.5) 11/02/19 04:19 Magnesium 2.3 mg/dL (1.6-2.3) 11/01/19 05:29 Total Bilirubin 0.6 mg/dL (0.2-1.3) 11/06/19 06:50 Direct Bilirubin 0.3 mg/dL (0.0-0.4) 11/06/19 06:50 Neonat Total Bilirubin Not Reportable 11/06/19 06:50 Neonat Direct Bilirubin Not Reportable 11/06/19 06:50 Neonat Indirect Bili Not Reportable 11/06/19 06:50 AST 31 U/L (14-36) 11/06/19 06:50 ALT 16 U/L (<35) 11/06/19 06:50 Alkaline Phosphatase 99 U/L (38-126) 11/06/19 06:50 Troponin I 0.012 ng/mL 10/31/19 10:20 Total Protein 6.2 g/dL (6.3-8.2) L 11/06/19 06:50 Albumin 2.5 g/dL (3.5-5.0) L 11/06/19 06:50 Triglycerides 120 mg/dL (<150) 11/01/19 05:29 Cholesterol 126.60 mg/dL (0-200) 11/01/19 05:29 LDL Cholesterol Direct 82 mg/dL (<100) 11/01/19 05:29 VLDL Cholesterol 24.0 mg/dL (10-31) 11/01/19 05:29 HDL Cholesterol 20 mg/dL (>40) L 11/01/19 05:29 Urine Color YELLOW 10/31/19 10:37 Urine Appearance CLEAR 10/31/19 10:37 Urine pH 6.0 (5.0-9.0) 10/31/19 10:37 Ur Specific [place] 1.022 10/31/19 10:37 Urine Protein 30 mg/dL (NEGATIVE) H 10/31/19 10:37 Urine Glucose (UA) >=500 mg/dL (NEGATIVE) H 10/31/19 10:37 Urine Ketones TRACE mg/dL (NEGATIVE) H 10/31/19 10:37 Urine Blood SMALL (NEGATIVE) H 10/31/19 10:37 Urine Nitrite NEGATIVE (NEGATIVE) 10/31/19 10:37 Urine Bilirubin NEGATIVE (NEGATIVE) 10/31/19 10:37 Urine Urobilinogen NEGATIVE mg/dL (<2.0) 10/31/19 10:37 Ur Leukocyte Esterase NEGATIVE (NEGATIVE) 10/31/19 10:37 Urine WBC (Auto) 12 /HPF 10/31/19 10:37 Urine RBC (Auto) 2 /HPF 10/31/19 10:37 Urine Bacteria (Auto) TRACE /HPF 10/31/19 10:37 Squamous Epi Cells Auto <1 /HPF 10/31/19 10:37 Urine Ascorbic Acid NEGATIVE (NEGATIVE) 10/31/19 10:37 POC Stool Occult Blood NEGATIVE (NEGATIVE) 10/31/19 10:39 Stl C. Difficile GDH Ag NEGATIVE (NEGATIVE) 11/01/19 18:45 Stl C.difficile Tox A&B NEGATIVE (NEGATIVE) 11/01/19 18:45 Time Trough Drawn 0938 11/05/19 09:38 Vancomycin Trough 14.0 ug/mL (5.0-20.0) 11/05/19 09:38 Influenza A (Rapid) NEGATIVE (NEGATIVE) 10/31/19 10:27 Influenza B (Rapid) NEGATIVE (NEGATIVE) 10/31/19 10:27 10/31/19 10:20 Troponin I 0.012 Impressions: Chest X-Ray 10/31/19 00:00 IMPRESSION: Dense consolidation in the posterior aspect of the right upper lobe and in the right posterior lower lobe. Findings are worrisome for pneumonia. Aspiration should be considered. Abdomen/Pelvis CT 10/31/19 11:06 IMPRESSION: 1. There is dense, heterogeneous consolidation of the included dependent right lower lobe with a trace associated pleural effusion. 2. No definite intraabdominal findings to explain right upper quadrant pain. 3. There is mild right hydronephrosis or hydroureter without evidence of distally obstructing or other urinary tract calculus. Findings may be related to mass effect of bulky uterine fibroids. Abdomen Ultrasound 11/05/19 00:00 IMPRESSION: Gallbladder sludge. No evidence of acute cholecystitis. Mild right hydronephrosis. Chest X-Ray 11/05/19 00:00 IMPRESSION: Right upper and lower lobe pneumonia. No significant change. Plan Time Spent: Less than 30 Minutes Stroke Is this a Stroke Patient?: No Acute Heart Failure - Is this a Heart Failure Patient?: No
[2019-11-06] MEDS ORDERED: LEVOFLOXACIN 750 MG TABLET PO ONE (13:00)
[2019-11-06 17:44] VITALS: BP 152/70
== END 2019-11-06 18:20 | disposition home or self-care (01) | DRG 871 ==
LOC: ER 09:54 → EH 15:58 → 4S 18:50
PROVIDERS: ADMIT Internal Medicine; ATTEND Internal Medicine
PROC: 0H9GXZZ Drainage of Left Hand Skin, External Approach (ICD-10-PCS; principal; 2019-11-02)
DX: A41.9 Sepsis, unspecified organism (principal); E11.01 Type 2 diabetes mellitus with hyperosmolarity with coma; J96.01 Acute respiratory failure with hypoxia; J15.212 Pneumonia due to Methicillin resistant Staphylococcus aureus; L02.512 Cutaneous abscess of left hand; N13.30 Unspecified hydronephrosis; R56.9 Unspecified convulsions; E11.65 Type 2 diabetes mellitus with hyperglycemia; R65.20 Severe sepsis without septic shock; B95.62 Methicillin resistant Staphylococcus aureus infection as the cause of diseases classified elsewhere; R19.7 Diarrhea, unspecified; I10 Essential (primary) hypertension; I44.7 Left bundle-branch block, unspecified; E78.5 Hyperlipidemia, unspecified; M19.90 Unspecified osteoarthritis, unspecified site; D64.9 Anemia, unspecified; Z79.4 Long term (current) use of insulin; Z83.3 Family history of diabetes mellitus; Z82.49 Family history of ischemic heart disease and other diseases of the circulatory system; Z83.42 Family history of familial hypercholesterolemia
CPT/HCPCS: 36415; 71046; 74177; 76705; 80048; 80053; 80061; 80202; 81001; 82565; 82803; 82962; 83036; 83605; 83735; 84100; 84484; 85025; 85610; 87040; 87070; 87077; 87186; 87205; 87324; 87449; 87804; 93005; 93010; 94667; 94762; 96361; 96365; 96375; 99285; J1650; J1815; J1885; J1956; J2270; J2405; J2543; J2765; J3370; J3490; J7030; J7060; J7120; J7620

== ENCOUNTER 2019-11-10 14:57 | Inpatient (IN) | payer OTHER ==
[2019-11-10] MEDS ORDERED: IPRATROPIUM/ALBUTEROL 0.5-2.5 MG/3 ML AMPUL NEB ONE (15:53)
--- NOTE | 2019-11-10 15:57 | ER Document Report ---
ED Medical Screen (RME) - General Chief Complaint: Breathing Difficulty Stated Complaint: WEAKNESS Time Seen by Provider: 11/10/19 15:48 Mode of Arrival: Ambulatory Information source: Patient Notes: 54-year-old female patient presenting to the emergency department chief complaint of cough, shortness of breath and fevers. Patient reports she was discharged from this hospital 4 days ago with a diagnosis of pneumonia, she states she was supposed to get outpatient antibiotics filled but she was unable to afford them. Patient reports she is getting worse by the day. Exam: Persistent bronchospasm with any deep breaths, scattered wheezes. Mildly increased work of breathing. I have greeted and performed a rapid initial assessment of this patient. A comprehensive ED assessment and evaluation of the patient, analysis of test results and completion of the medical decision making process will be conducted by additional ED providers. I have specifically instructed the patient or famil y members with the patient to immediately return to any nursing staff should anything change in the patient's condition or with their chief complaint. TRAVEL OUTSIDE OF THE [place] IN LAST 30 DAYS: No COUNTRY TRAVELED TO/FROM: [facility] - Related Data Allergies/Adverse Reactions: No Known Allergies Allergy (Verified 11/10/19 15:48) Past Medical History - Social History Chew tobacco use (# tins/day): No Frequency of alcohol use: None Drug Abuse: None - Past Medical History Cardiac Medical History: Reports: Hx Hypercholesterolemia, Hx Hypertension, Hx Heart Murmur Pulmonary Medical History: Reports: Hx Bronchitis Denies: Hx Tuberculosis Neurological Medical History: Reports: Hx Seizures - Told stress related, having started when her 2011. On Dilantin Endocrine Medical History: Reports: Hx Diabetes Mellitus Type 2 Renal/ Medical History: Denies: Hx Peritoneal Dialysis Musculoskeltal Medical History: Reports Hx Arthritis Psychiatric Medical History: Reports: Hx Anxiety Denies: Hx Depression Past Surgical History: Reports: Hx Section, Hx Orthopedic Surgery - r shoulder w hardware, Hx Tonsillectomy - Immunizations Immunizations up to date: Yes Hx Diphtheria, Pertussis, Tetanus Vaccination: Yes - 2015 Physical Exam - Vital signs Vitals: Temp Pulse Resp BP Pulse Ox 98.6 F 113 H 18 149/90 H 96 11/10/19 15:29 11/10/19 15:29 11/10/19 15:29 11/10/19 15:29 11/10/19 15:29 Course - Vital Signs Vital signs: Temp Pulse Resp BP Pulse Ox 98.6 F 113 H 18 149/90 H 96 11/10/19 15:29 11/10/19 15:29 11/10/19 15:29 11/10/19 15:29 11/10/19 15:29
[2019-11-10] MEDS: ALBUTEROL SULFATE 0.083% NEB 2.5 MG/3 ML AMPUL NEB SCH ×2 (16:53→17:23)
--- NOTE | 2019-11-10 17:05 | RADIOLOGY REPORT (SQ) ---
EXAM DESCRIPTION: CHEST 2 VIEWS COMPLETED DATE/TIME: 11/10/2019 4:39 pm REASON FOR STUDY: cough/fever/recent pneumonia COMPARISON: PA and lateral views of the chest from 11/05/2019 EXAM PARAMETERS: NUMBER OF VIEWS: two views TECHNIQUE: PA and lateral views of the chest were obtained. RADIATION DOSE: NA LIMITATIONS: none FINDINGS: LUNGS AND PLEURA: Multifocal parenchymal opacities in the right upper and right lower lobe that are unchanged. The right costophrenic sulcus is blunted. There is no pneumothorax. MEDIASTINUM AND HILAR STRUCTURES: No mediastinal or hilar contour abnormality. HEART AND VASCULAR STRUCTURES: The cardiac silhouette and pulmonary vasculature are within normal horne its. BONES: No acute findings. HARDWARE: None in the chest. OTHER: No other finding. IMPRESSION: Unchanged multifocal pneumonia with a probable small right parapneumonic pleural effusio n. TECHNICAL DOCUMENTATION: JOB ID: [id number] [employer]- All Rights Reserved Reading location - IP/workstation name: [email or web address]
[2019-11-10 17:59] LABS: APPEARANCE,URINE SLIGHTLY-CLOUDY; BILIRUBIN,URINE NEGATIVE (NEGATIVE); COLOR,URINE YELLOW; GLUCOSE, URINE >=500 mg/dL (NEGATIVE); KETONES,URINE NEGATIVE (NEGATIVE); LEUKOCYTE ESTERASE,URINE SMALL (NEGATIVE); NITRITE,URINE NEGATIVE (NEGATIVE); PROTEIN,URINE 30 mg/dL (NEGATIVE); URINE SPECIFIC GRAVITY 1.016; UROBILINOGEN,URINE NEGATIVE mg/dL (<2.0)
[2019-11-10] MEDS ORDERED: PHENYTOIN SODIUM INJ/PF 250 MG/5 ML SDV IV ONE (18:09)
[2019-11-10] MEDS ORDERED: VANCOMYCIN HCL INJ 1000 MG VIAL IV ONE (18:09)
[2019-11-10] MEDS ORDERED: PIPERACILLIN/TAZOBACTAM 3.375 GM VIAL IV ONE (18:09)
[2019-11-10] MEDS ORDERED: MUPIROCIN 2% OINTMENT 22 GM TOP ONE (18:10)
[2019-11-10] MEDS ORDERED: DILTIAZEM HCL INJ 25 MG/5 ML VIAL IV ONE (18:13)
[2019-11-10] MEDS ORDERED: NORMAL SALINE 500 ML IV ONE (18:13)
--- NOTE | 2019-11-10 18:22 | ER Document Report ---
ED General - General Chief Complaint: Breathing Difficulty Stated Complaint: WEAKNESS Time Seen by Provider: 11/10/19 15:48 Primary Care Provider: [facility],LUCR[facility] [Primary Care Provider] - Follow up as needed Mode of Arrival: Ambulatory Information source: Patient Notes: 54-year-old black female arrives with chief complaint of tachycardia paroxysmal cough productive green phlegm dyspnea short of breath MOREIRA with history of just being released from hospital Wednesday night.. Tonight is Wednesday night. Patient reports she was told she has pneumonia to the right chest upper and lower. X- ray done today reveals multifocal pneumonia with right-sided para pleural effusion. Patient arrives tachycardic at 133 bpm with sinus tachycardia atrial PACs and left bundle branch block patient reports. Patient does not meet any exclusion criteria for TPA at this time. I have reviewed the risks and benefits of administration of TPA with the family at the bedside. We have reviewed the risks of intracranial bleed and the possible benefits of increased functional independence at 90 days with the use of TPA. [place] poorly upon discharge and has felt increased dyspnea since discharge. She also was told she has MRSA to her left ring finger where she had paronychia. She was begun on nasal Bactroban here in the ER. As well as vancomycin and Zosyn Patient went to urgent care earlier today and was sent directly to the ER because of tachycardia and right-sided chest pain DrOnwes discharge summary on 06 Nov 2019 ; Patient was admitted for treatment of pneumonia noted on chest x-ray involving her right upper or right lower lobes. Patient also had abdominal CT done on admission which showed no intra-abdominal process besides mild right hydronephrosis without stones and confirmed right lower lobe consolidation. Patient was notably tachycardic but without hyp otension. Patient was septic with endorgan damage and acute respiratory failure with hypoxia given her elevated sofa score and significant hypoxia on room air. Blood cultures were obtained and patient was started on empiric antibiotic therapy with Levaquin. Sputum culture was also obtained which later on grew MRSA given suspicion of MRSA or as 1 of the bacteria to caused patient's pneumonia. Vancomycin was subsequently added to patient's regimen. Patient's leukocytosis has down trended and is back to normal at this time. With antibiotic treatment and IV fluids, patient sepsis and acute hypoxic respiratory failure resolved. Patient's SPO2 has been good on room air for the past several days now. During this hospitalization, patient also complained of right lower rib pain/ruq pain and chest pain with significant reproducibility on palpation secondary to costochondritis and diaphragmatic irritation from excessive coughing and respiratory tract infection. Right upper quadrant ultrasound showed no biliary tract obstruction nor cholecystitis. Patient has received lidocaine patch, NSAIDs as well as Tylenol 3 to help with this. Patient was also treated for left ring finger abscess which was drained by orthopedics and grew MRSA. Patient is to continue dressing at the site. Stacy arguello has completed 7-day therapy with Levaquin for the pneumonia and has received 4 days of vancomycin for MRSA coverage and is to continue doxycycline for 4 more days for treatment of MRSA pneumonia and MRSA abscess of the left ring finger. Patient also presented in NK with blood sugars over 600 and mild acidosis with trace ketosis which was treated with aggressive IV fluids and subcutaneous insulin. She was subsequently transitioned to insulin after hemoglobin A1c was noted to be over 10. Patient was previously only taking metformin at home. Patient is to continue taking metformin and this started on Lantus 18 units nightly and lispro 8 units AC with adequate control of blood sugars now. Patient being discharged in safe stable conditions and asked to follow-up with her primary care provider. TRAVEL OUTSIDE OF THE [place] IN LAST 30 DAYS: No COUNTRY TRAVELED TO/FROM: [facility] - [facility] Onset: Other - all week Onset/Duration: Persistent, Worse Quality of pain: Fullness Severity: Moderate Pain Level: 2 Associated symptoms: Body/muscle aches, Productive cough, Fever, Hurts to breath, Nausea, Shortness of breath, Weakness Exacerbated by: Movement, Walking, Coughing, Deep breathing Relieved by: Denies Similar symptoms previously: Yes Recently seen / treated by doctor: Yes - she was just released from [facility], [facility] Wednesday night - Related Data Allergies/Adverse Reactions: No Known Allergies Allergy (Verified 11/10/19 15:48) Past Medical History - General Information source: Patient - Social History Smoking Status: Never Smoker Cigarette use (# per day): No Chew tobacco use (# tins/day): No Smoking Education Provided: No Frequency of alcohol use: None Drug Abuse: None Lives with: Family - Patient" usually takes tablets for her diabetes but was on insulin while in hospital" Family History: CVA, DM, Hyperlipidemia, Hypertension, Malignancy - Father, Thyroid Disfunction Patient has suicidal ideation: No Patient has homicidal ideation: No - Past Medical History Cardiac Medical History: Reports: Hx Hypercholesterolemia, Hx Hypertension, Hx Heart Murmur Pulmonary Medical History: Reports: Hx Bronchitis Denies: Hx Tuberculosis Neurological Medical History: Reports: Hx Seizures - Told stress related, having started when her 2011. On Dilantin Endocrine Medical History: Reports: Hx Diabetes Mellitus Type 2 Renal/ Medical History: Denies: Hx Peritoneal Dialysis Musculoskeletal Medical History: Reports Hx Arthritis Psychiatric Medical History: Reports: Hx Anxiety Denies: Hx Depression Past Surgical History: Reports: Hx Section, Hx Orthopedic Surgery - r shoulder w hardware, Hx Tonsillectomy - Immunizations Immunizations up to date: Yes Hx Diphtheria, Pertussis, Tetanus Vaccination: Yes - 2015 Review of Systems - Review of Systems Constitutional: Fever, Malaise, Weakness, Recent illness EENT: Nose congestion Cardiovascular: Palpitations, Dizziness, Lightheaded Respiratory: Cough, Hurts to breathe - R Lateral chest and anterior chest pain on inspiration and palpation Gastrointestinal: No symptoms reported Genitourinary: No symptoms reported Female Genitourinary: No symptoms reported Musculoskeletal: Other - Status post paronychia incision and is drying and healing well left ring finger ( radial approach) Physical Exam - Vital signs Vitals: Temp Pulse Resp BP Pulse Ox 98.6 F 113 H 18 149/90 H 96 11/10/19 15:29 11/10/19 15:29 11/10/19 15:29 11/10/19 15:29 11/10/19 15:29 Interpretation: Tachycardic, Tachypneic - General General appearance: Alert In distress: Mild - HEENT Head: Normocephalic Eyes: Normal Conjunctiva: Normal Cornea: Normal Extraocular movements intact: Yes Eyelashes: Normal Pupils: PERRL Sinus: Normal Nasal: Normal Mouth/Lips: Normal Mucous membranes: Dry Pharynx: Normal Neck: Normal - Respiratory Respiratory status: Respiratory distress Chest status: Tender Breath sounds: Decreased air movement, Productive cough Chest palpation: Purulent sputum - Cardiovascular Rhythm: Tachycardia Heart sounds: Normal auscultation Murmur: No Friction rub: No Osei's crunch: No - Abdominal Inspection: Normal Distension: No distension Bowel sounds: Normal Tenderness: Nontender - Back Back: Normal - Extremities General upper extremity: Other - No healing left ring finger status post paronychial incision healing well General lower extremity: Normal inspection - Neurological Neuro grossly intact: Yes Cognition: Normal Orientation: AAOx4 [place] Coma Scale Eye Opening: Spontaneous [place] Coma Scale Verbal: Oriented [place] Coma Scale Motor: Obeys Commands [place] Coma Scale Total: 15 Speech: Normal Cranial nerves: Normal Cerebellar coordination: Normal - Psychological Associated symptoms: Anxious - Skin Skin Temperature: Warm Skin Moisture: Dry Course - Vital Signs Vital signs: Temp Pulse Resp BP Pulse Ox 98.6 F 113 H 22 H 148/80 H 100 11/10/19 15:29 11/10/19 15:29 11/10/19 20:01 11/10/19 20:00 11/10/19 20:01 - Laboratory Result Diagrams: 11/10/19 18:26 11/10/19 18:22 Laboratory results interpreted by me: 11/10/19 11/10/19 11/10/19 17:05 18:22 18:22 WBC RBC Hgb Hct RDW Plt Count Absolute Neuts (auto) BUN 4 L Creatinine 0.48 L Glucose 228 H Lactic Acid 2.5 H Urine Protein 30 H Urine Glucose (UA) >=500 H Ur Leukocyte Esterase SMALL H 11/10/19 18:26 WBC 15.0 H RBC 3.71 L Hgb 10.5 L Hct 32.1 L RDW 15.7 H Plt Count 833 H Absolute Neuts (auto) 11.0 H BUN Creatinine Glucose Lactic Acid Urine Protein Urine Glucose (UA) Ur Leukocyte Esterase - Diagnostic Test Radiology reviewed: Reports reviewed - EKG Interpretation by Me Rate: Tachycardia Rhythm: APC's [place]/QRS: LBBB Critical Care Note - Critical Care Note Total time excluding time spent on procedures (mins): 90 Comments: Discussed with Dr. Nahid Curry telebed Discharge - Discharge Clinical Impression: Community acquired bacterial pneumonia, Painful respiration, Seizure disorder, Paronychia of finger of left hand, Tachycardia Condition: Fair Disposition: ADMITTED INPATIENT Admitting Provider: Patricio (Hospitalist) Unit Admitted: Telemetry Additional Instructions: Patient by stretcher to telemetry admission [facility]: [facility] [[facility]] - Follow up as needed
[2019-11-10 18:42] LABS: VENOUS BLOOD BASE EXCESS 4.7 mmol/L; VENOUS BLOOD HCO3 30.3 mmol/L (20-32); VENOUS BLOOD PCO2 49.8 mmHg (35-63); VENOUS BLOOD PH 7.4 (7.30-7.42)
[2019-11-10] MEDS ORDERED: BENZONATATE 100 MG CAPSULE PO ONE (18:57)
[2019-11-10 19:13] LABS: ANION GAP 11 (5-19); BLOOD UREA NITROGEN 4 mg/dL (7-20); CALCIUM 8.9 mg/dL (8.4-10.2); CARBON DIOXIDE 27 mmol/L (22-30); CHLORIDE 99 mmol/L (98-107); GLUCOSE 228 mg/dL (75-110); POTASSIUM 3.9 mmol/L (3.6-5.0)
[2019-11-10 19:14] LABS: A TYPE INFLUENZA AG NEGATIVE (NEGATIVE); B INFLUENZA AG NEGATIVE (NEGATIVE)
[2019-11-10 19:29] LABS: CREATINE KINASE MB < 0.22 ng/mL (<4.55); TROPONIN I < 0.012 ng/mL
[2019-11-10 20:04] LABS: ABSOLUTE LYMPHOCYTES (AUTO) 3.1 10^3/uL (0.5-4.7); ABSOLUTE MONOCYTES (AUTO) 0.8 10^3/uL (0.1-1.4); BASOPHILS % (AUTO) 0.3 % (0-2); EOSINOPHILS % (AUTO) 0.1 % (0-6); HEMATOCRIT 32.1 % (36.0-47.0); HEMOGLOBIN 10.5 g/dL (12.0-15.5); LYMPHOCYTES % (AUTO) 20.7 % (13-45); MEAN CORPUSCULAR HEMOGLOBIN 28.3 pg (27.0-33.4); MEAN CORPUSCULAR HGB CONC 32.8 g/dL (32.0-36.0); MEAN CORPUSCULAR VOLUME 87 fl (80-97); MONOCYTES % (AUTO) 5.1 % (3-13); PLATELET COUNT 833 10^3/uL (150-450); RED BLOOD COUNT 3.71 10^6/uL (3.72-5.28); RED CELL DISTRIBUTION WIDTH 15.7 % (11.5-14.0); SEGMENTED NEUTROPHILS % (AUTO) 73.8 % (42-78); TOTAL CELLS COUNTED % (AUTO) 100 %
--- NOTE | 2019-11-10 20:18 | EKG REPORT ---
SEVERITY:- ABNORMAL ECG - SINUS TACHYCARDIA ATRIAL PREMATURE COMPLEX LEFT BUNDLE BRANCH BLOCK : Confirmed by: Sudhir Golden MD 10-Nov-2019 20:17:39
[2019-11-10] MEDS ORDERED: DEXTROSE 50%-WATER 25 GM/50 ML DISP.SYRIN IV PRN ×2 (21:41)
[2019-11-10] MEDS ORDERED: GLUCAGON,HUMAN RECOMB 1 MG INJ IM PRN (21:41)
[2019-11-10] MEDS ORDERED: DEXTROSE 40% GEL 15 GM TUBE PO PRN ×2 (21:41)
[2019-11-10] MEDS ORDERED: HYDRALAZINE HCL INJ/PF 20 MG/1 ML SDV IV PRN (21:42)
[2019-11-10] MEDS ORDERED: LEVALBUTEROL HCL NEB 0.63 MG/3 ML AMPUL NEB PRN (21:42)
[2019-11-10] MEDS ORDERED: MAG HYDROX/AL HYDROX/SIMETH SUSP 30 ML UDCUP PO PRN (21:42)
[2019-11-10] MEDS ORDERED: ACETAMINOPHEN 650 MG SUPP.RECT PR PRN (21:42)
[2019-11-10] MEDS ORDERED: MAGNESIUM HYDROXIDE SUSP 30 ML UDCUP PO PRN (21:42)
[2019-11-10] MEDS ORDERED: DIAZEPAM INJ 10 MG/2 ML DISP.SYRIN IV PRN (21:42)
[2019-11-10] MEDS ORDERED: MORPHINE SULFATE 10 MG/ML INJ IV PRN ×3 (21:42)
[2019-11-10] MEDS ORDERED: GUAIFENESIN SYRP 200 MG/10 ML UDC PO PRN (21:42)
[2019-11-10] MEDS ORDERED: INSULIN GLARGINE,HUM.REC.ANLOG 1,000 UNIT/10 ML VIAL (PYX) SUBCUT ONE (22:27)
[2019-11-10] MEDS ORDERED: LINEZOLID 600 MG/300 ML RTUPB IV ONE (22:34)
[2019-11-10] MEDS ORDERED: PHENYTOIN SODIUM EXTENDED 100 MG CAPSULE PO ONE (22:35)
[2019-11-10] MEDS: HEPARIN SOD (PORCINE) 5,000 UNIT/ML 1 ML VIAL SUBCUT SCH (22:38)
[2019-11-10] MEDS: INSULIN GLARGINE,HUM.REC.ANLOG 1,000 UNIT/10 ML VIAL SUBCUT SCH (22:41)
[2019-11-10] MEDS: LINEZOLID 600 MG/300 ML RTUPB IV SCH (22:42)
[2019-11-10] MEDS: FAMOTIDINE 20 MG TABLET PO SCH (22:42)
[2019-11-10] MEDS: PHENYTOIN SODIUM EXTENDED 100 MG CAPSULE PO SCH (22:46)
[2019-11-10] MEDS: INSULIN LISPRO 100 UNIT/ML 3 ML VIAL SUBCUT SCH (22:54)
[2019-11-10] MEDS: RINGERS SOLUTION,LACTATED 1,000 ML IV PRN (22:55)
[2019-11-11] MEDS: LEVALBUTEROL HCL NEB 1.25 MG/3 ML AMPUL NEB SCH ×4 (00:15→23:49)
[2019-11-11] MEDS: IPRATROPIUM BROMIDE 0.02% NEB 0.5 MG/2.5 ML AMPUL NEB SCH ×4 (00:15→23:49)
--- NOTE | 2019-11-11 00:59 | PDOC H&P ---
History of Present Illness Admission Date/PCP: 11/10/19 20:57 [facility] Patient complains of: Dyspnea History of Present Illness: SHEMAR CONTEH is a 54 year old female who presented to the emergency room with a 3-week history of dyspnea. She admits developing dyspnea approximately 3 weeks ago which has progressively worsened until treatment during her hospitalization 10 days ago. She improved throughout her hospitalization although she did not have complete resolution of symptoms prior to her discharge 4 days ago. Her dyspnea, worsened by exertion, persists and has gradually worsened since the time of her discharge, being accompanied by a cough productive of greenish mucus and being associated with subjective fevers, malaise, ague, nausea, decreased oral intake, right-sided pleuritic chest pain and generalized weakness. She notes these symptoms are the same symptoms she had prior to her recent admission. She further admits that she was unable to obtain the antibiotic prescription provided for her at the time of discharge due to cost. She has not identified any additional aggravating or ameliorating factors for her dyspnea. In the emergency room she was found to have an elevated white blood count with an elevated lactic acid on laboratory evaluation. Her physical evaluation revealed tachycardia and diaphoresis. She was treated with IV fluids and IV antibiotics were initiated. The patient was subsequently admitted to the hospital for further evaluation and treatment. Past Medical History Cardiac Medical History: Reports: Hyperlipidema, Hypertension, Heart Murmur Denies: Coronary Artery Disease, Myocardial Infarction Pulmonary Medical History: Reports: Bronchitis, Pneumonia Denies: Asthma, Chronic Obstructive Pulmonary Disease (COPD), Tuberculosis EENT Medical History: Denies: Cataracts, Ears - Hearing aids Neurological Medical History: Reports: Seizures - Told stress related, having started when her 2011. On Dilantin Denies: Hemorrhagic CVA, Ischemic CVA Endocrine Medical History: Reports: Diabetes Mellitus Type 2 Denies: Diabetes Mellitus Type 1, Hyperthyroidism, Hypothyroidism, Obesity Renal/ Medical History: Denies: Chronic Kidney Disease, Nephrolithiasis Malignancy Medical History: Reports: None GI Medical History: Denies: Cirrhosis, Crohn's Disease, Gastroesophageal Reflux Disease, Hepa titis, Peptic Ulcer Disease, Ulcerative Colitis Musculoskeltal Medical History: Reports: Arthritis Denies: Gout Skin Medical History: Denies: Eczema, Psoriasis Psychiatric Medical History: Denies: Alcohol Dependency, Depression, Substance Abuse, Tobacco Dependency Traumatic Medical History: Reports: None Hematology: Reports: Anemia Denies: Bleeding Tendencies Infectious Medical History: Reports: None Past Surgical History Past Surgical History: Reports: Section, Orthopedic Surgery - Right s houlder with hardware, Tonsillectomy Social History Information Source: Patient Lives with: Family Smoking Status: Never Smoker Electronic Cigarette use?: No Frequency of Alcohol Use: None Hx Recreational Drug Use: No Drugs: None Hx Prescription Drug Abuse: No - Advance Directive Resuscitation Status: Full Code Surrogate healthcare decision maker:: Myra Conteh Family History Family History: CVA, DM, Hyperlipidemia, Hypertension, Malignancy - Father, Thyroid Disfunction Parental Family History Reviewed: Yes Children Family History Reviewed: No Sibling(s) Family History Reviewed.: Yes Medication/Allergy Home Medications: Lisinopril [Zestril] 20 mg PO DAILY 11/02/19 Acetaminophen with Codeine [Tylenol #3 Tablet] 2 each PO Q6HP PRN #12 tablet 11/06/19 Doxycycline Hyclate [Vibramycin 100 mg Tablet] 100 mg PO BID 4 Days #8 tablet 11/06/19 Guaifenesin/D-Methorphan Hb [Robitussin-Dm Syrup 10 ml Udcup] 10 ml PO TIDP PRN #200 ml 11/06/19 Ibuprofen [Motrin 400 mg Tablet] 400 mg PO Q8HP PRN tablet 11/06/19 Insulin Glargine,Hum.rec.anlog [Basaglar Kwikpen U-100] 18 unit SQ QHS #4 insuln.pen 11/06/19 Insulin Lispro [Humalog Insulin (Lispro) 100 unit/mL] 8 unit SUBCUT AC #10 ml 11/06/19 Lidocaine [Lidoderm 5% (700 mg) Transdermal Patch] 1 patch TP DAILY #10 adh..patch 11/06/19 Metformin HCl [Glucophage 500 mg Tablet] 750 mg PO BIDACBS 30 Days tablet 11/06/19 Ondansetron [Zofran Odt 4 mg Tablet] 1 - 2 tab PO Q4HP PRN #10 tab.rapdis 11/06/19 Allergies/Adverse Reactions: No Known Allergies Allergy (Verified 11/10/19 15:48) Review of Systems Constitutional: PRESENT: as per HPI, anorexia, fever(s), weakness Eyes: ABSENT: visual disturbances, other - Eye pain Ears: ABSENT: hearing changes, other - Ear pain Nose, Mouth, and Throat: ABSENT: headache(s), mouth pain, sore throat Cardiovascular: PRESENT: as per HPI, chest pain, dyspnea on exertion. ABSENT: edema, orthropnea, palpitations Respiratory: PRESENT: as per HPI, cough, dyspnea, sputum. ABSENT: hemoptysis Gastrointestinal: PRESENT: nausea. ABSENT: abdominal pain, constipation, diarrhea, vomiting Genitourinary: ABSENT: dysuria, hematuria Musculoskeletal: PRESENT: muscle weakness - Generalized. ABSENT: back pain, joint swelling Integumentary: ABSENT: pruritus, rash Neurological: ABSENT: confusion, convulsions, focal weakness, memory loss, syncope Psychiatric: ABSENT: anxiety, depression Endocrine: ABSENT: cold intolerance, heat intolerance, polydipsia, polyphagia, polyuria Hematologic/Lymphatic: ABSENT: easy bleeding, easy bruising Allergic/Immunologic: ABSENT: seasonal rhinorrhea Physical Exam Vital Signs: Temp Pulse Resp BP Pulse Ox 98.6 F 113 H 22 H 148/80 H 100 11/10/19 15:29 11/10/19 15:29 11/10/19 20:01 11/10/19 20:00 11/10/19 20:01 Intake & Output 11/08/19 11/09/19 11/10/19 23:59 23:59 23:59 Intake Total 500 Balance 500 Weight 69.4 kg General appearance: PRESENT: no acute distress, cooperative Head exam: PRESENT: atraumatic, normocephalic Eye exam: PRESENT: conjunctiva pink. ABSENT: conjunctival injection, scleral icterus Ear exam: PRESENT: normal external ear exam. ABSENT: bleeding, drainage Mouth exam: PRESENT: dry mucosa, neck supple Neck exam: ABSENT: thyromegaly, tracheal deviation Respiratory exam: PRESENT: chest wall tenderness - Right lower ribs, rales - Scattered areas of coarse rales in the upper and lower lung gleason, rhonchi - Scattered rhonchi in the central right sided lung gleason, symmetrical Cardiovascular exam: PRESENT: RRR. ABSENT: clicks, gallop, rubs Pulses: PRESENT: normal radial pulses, normal dorsalis pedis pul Vascular exam: PRESENT: normal capillary refill. ABSENT: pallor GI/Abdominal exam: PRESENT: normal bowel sounds, soft Rectal exam: PRESENT: deferred Extremities exam: ABSENT: joint swelling, pedal edema Musculoskeletal exam: ABSENT: deformity, dislocation Neurological exam: PRESENT: alert, oriented to person, oriented to place, oriented to time, oriented to situation, CN II-XII grossly intact. ABSENT: motor sensory deficit Psychiatric exam: PRESENT: appropriate affect, normal mood Skin exam: PRESENT: dry, intact, warm. ABSENT: jaundice, rash, urticaria Results Laboratory Results: 11/10/19 18:26 11/10/19 18:22 11/10/19 11/10/19 11/10/19 17:05 17:05 17:05 WBC Cancelled RBC Cancelled Hgb Cancelled Hct Cancelled MCV Cancelled MCH Cancelled MCHC Cancelled RDW Cancelled Plt Count Cancelled Seg Neutrophils % Cancelled VBG pH VBG pCO2 VBG HCO3 VBG Base Excess Sodium Cancelled Potassium Cancelled Chloride Cancelled Carbon Dioxide Cancelled Anion Gap Cancelled BUN Cancelled Creatinine Cancelled Est GFR ( Amer) Cancelled Est GFR (Non-Af Amer) Cancelled Glucose Cancelled Lactic Acid Calcium Cancelled Urine Color YELLOW Urine Appearance SLIGHTLY-CLOUDY Urine pH 6.0 Ur Specific [place] 1.016 Urine Protein 30 H Urine Glucose (UA) >=500 H Urine Ketones NEGATIVE Urine Blood NEGATIVE Urine Nitrite NEGATIVE Ur Leukocyte Esterase SMALL H Urine WBC (Auto) 4 Urine RBC (Auto) 3 11/10/19 11/10/19 11/10/19 18:22 18:22 18:26 WBC 15.0 H RBC 3.71 L Hgb 10.5 L Hct 32.1 L MCV 87 MCH 28.3 MCHC 32.8 RDW 15.7 H Plt Count 833 H Seg Neutrophils % 73.8 VBG pH VBG pCO2 VBG HCO3 VBG Base Excess Sodium 137.0 Potassium 3.9 Chloride 99 Carbon Dioxide 27 Anion Gap 11 BUN 4 L Creatinine 0.48 L Est GFR ( Amer) > 60 Est GFR (Non-Af Amer) Glucose 228 H Lactic Acid 2.5 H Calcium 8.9 Urine Color Urine Appearance Urine pH Ur Specific [place] Urine Protein Urine Glucose (UA) Urine Ketones Urine Blood Urine Nitrite Ur Leukocyte Esterase Urine WBC (Auto) Urine RBC (Auto) 11/10/19 18:27 WBC RBC Hgb Hct MCV MCH MCHC RDW Plt Count Seg Neutrophils % VBG pH 7.40 VBG pCO2 49.8 VBG HCO3 30.3 VBG Base Excess 4.7 Sodium Potassium Chloride Carbon Dioxide Anion Gap BUN Creatinine Est GFR ( Amer) Est GFR (Non-Af Amer) Glucose Lactic Acid Calcium Urine Color Urine Appearance Urine pH Ur Specific [place] Urine Protein Urine Glucose (UA) Urine Ketones Urine Blood Urine Nitrite Ur Leukocyte Esterase Urine WBC (Auto) Urine RBC (Auto) 11/10/19 18:22 CK-MB (CK-2) < 0.22 Troponin I < 0.012 Impressions: Chest X-Ray 11/10/19 15:53 IMPRESSION: Unchanged multifocal pneumonia with a probable small right parapneumonic pleural effusion. Assessment and Plan - Diagnosis (1) Multifocal pneumonia Is this a current diagnosis for this admission?: Yes (2) Pleuritic chest pain Is this a current diagnosis for this admission?: Yes (3) Acute respiratory failure with hypoxia Is this a current diagnosis for this admission?: Yes (4) SIRS (systemic inflammatory response syndrome) Is this a current diagnosis for this admission?: Yes (5) Tachycardia Is this a current diagnosis for this admission?: Yes (6) Elevated lactic acid level Is this a current diagnosis for this admission?: Yes (7) Diabetes mellitus type 2 in nonobese Is this a current diagnosis for this admission?: Yes (8) Seizure disorder Is this a current diagnosis for this admission?: Yes (9) Essential hypertension Is this a current diagnosis for this admission?: Yes (10) Hyperlipidemia Qualifiers: Hyperlipidemia type: unspecified Qualified Code(s): E78.5 - Hyperlipidemia, unspecified Is this a current diagnosis for this admission?: Yes - Plan Summary Summary: Patient is admitted to the medical floor on telemetry bed for routine supportive and symptomatic cares. She will receive supplemental oxygen via nasal cannula with the use of noninvasive airway pressure support devices such as BiPAP or CPAP as needed to provide adequate oxygenation. She will receive an aggressive pulmonary toilet utilizing Xopenex, Atrovent and Mucomyst delivered via nebulizer. She will be treated with IV linezolid, IV ceftriaxone and IV azithromycin. She will receive morphine sulfate 2 to 4 mg IV every 2 hours on as-needed basis for control of her pain. She will be continued on her usual home medications for her chronic medical problems as appropriate and per formulary availability. CBCs, metabolic profiles and magnesium levels will be performed on a regular basis as needed. Before meals and at bedtime Accu-Cheks will be performed with sliding scale insulin used to cover hyperglycemia and a hypoglycemic protocol in place. - Time Time Spent with patient: 15-24 minutes Medications reviewed and adjusted accordingly: Yes Anticipated discharge: Home with Homehealth - Inpatient Certification Based on my medical assessment, after consideration of the patient's comorbidities, presenting symptoms, or acuity I expect that the services needed warrant INPATIENT care.: Yes I certify that my determination is in accordance with my understanding of Medicare's requirements for reasonable and necessary INPATIENT services [42 CFR 412.3e].: Yes Medical Necessity: Failure to Improve With Outpatient Therapy, Need Close Monitoring Due to Risk of Patient Decompensation, Need For IV Fluids, Need For Continuous Telemetry Monitoring, Need for Nebulizer Therapy and Monitoring of Response, Need for Pain Control, Need for IV Antibiotics
[2019-11-11] MEDS: HEPARIN SOD (PORCINE) 5,000 UNIT/ML 1 ML VIAL SUBCUT SCH ×3 (05:28→21:31)
[2019-11-11] MEDS: PHENYTOIN SODIUM EXTENDED 100 MG CAPSULE PO SCH ×3 (05:28→21:31)
[2019-11-11 07:08] LABS: HEMATOCRIT 27.5 % (36.0-47.0); HEMOGLOBIN 9.4 g/dL (12.0-15.5); MEAN CORPUSCULAR HEMOGLOBIN 28.6 pg (27.0-33.4); MEAN CORPUSCULAR HGB CONC 34.1 g/dL (32.0-36.0); MEAN CORPUSCULAR VOLUME 84 fl (80-97); PLATELET COUNT 714 10^3/uL (150-450); RED BLOOD COUNT 3.28 10^6/uL (3.72-5.28); RED CELL DISTRIBUTION WIDTH 15.7 % (11.5-14.0); WHITE BLOOD COUNT 10.4 10^3/uL (4.0-10.5)
[2019-11-11 07:33] LABS: ANION GAP 9 (5-19); BLOOD UREA NITROGEN 3 mg/dL (7-20); CALCIUM 8.8 mg/dL (8.4-10.2); CARBON DIOXIDE 28 mmol/L (22-30); CHLORIDE 102 mmol/L (98-107); GLUCOSE 182 mg/dL (75-110); POTASSIUM 3.9 mmol/L (3.6-5.0)
[2019-11-11] MEDS ORDERED: METFORMIN HCL 500 MG TABLET PO SCH (08:00)
[2019-11-11] MEDS: RINGERS SOLUTION,LACTATED 1,000 ML IV PRN ×2 (08:02→14:03)
[2019-11-11] MEDS: INSULIN LISPRO 100 UNIT/ML 3 ML VIAL SUBCUT SCH ×7 (08:09→21:34)
[2019-11-11] MEDS: ACETYLCYSTEINE 20% SOLN 800 MG/4 ML VIAL.NEB NEB SCH ×2 (09:10→20:10)
[2019-11-11] MEDS ORDERED: CEFTRIAXONE 1 GM/D5W RTU 1 GM/50 ML RTUPB IV SCH (10:00)
--- NOTE | 2019-11-11 10:45 | PDOC PROGRESS REPORT ---
Subjective Progress Note for:: 11/11/19 Subjective:: The patient is resting in bed on nasal cannula. She clearly is very ill. She is constantly coughing. She winces when she coughs as well. Reason For Visit: SIRS Right upper lobe pneumonia methicillin-resistant staph aureus Onychia left ring finger Physical Exam Vital Signs: Temp Pulse Resp BP Pulse Ox 98.6 F 94 16 148/71 H 99 11/11/19 07:50 11/11/19 09:10 11/11/19 09:10 11/11/19 07:50 11/11/19 09:10 Intake & Output 11/10/19 11/11/19 11/12/19 06:59 06:59 06:59 Intake Total 2272 Output Total 400 Balance 1872 Weight 68.7 kg General appearance: PRESENT: cooperative, mild distress, well-developed, other - Sickly appearing Head exam: PRESENT: atraumatic, normocephalic Ear exam: PRESENT: normal external ear exam. ABSENT: bleeding, drainage Mouth exam: PRESENT: moist, tongue midline Respiratory exam: PRESENT: chest wall tenderness - Right axillary area, decreased breath sounds - On the right, rhonchi - On the right, symmetrical, unlabored, wheezes - Expiratory wheezes on the right. ABSENT: prolonged expiratory phas, rales, retraction, tachypnea Cardiovascular exam: PRESENT: RRR, +S1, +S2 GI/Abdominal exam: PRESENT: normal bowel sounds, soft. ABSENT: distended, tenderness Rectal exam: PRESENT: deferred Gentrourinary exam: ABSENT: indwelling catheter Extremities exam: ABSENT: pedal edema Neurological exam: PRESENT: alert, awake, oriented to person, oriented to place, oriented to time, oriented to situation, CN II-XII grossly intact Psychiatric exam: PRESENT: appropriate affect - Affect reflects her current clinical state. ABSENT: agitated, anxious Focused psych exam: ABSENT: delusional, restlessness Skin exam: PRESENT: dry, normal color, warm, other - On the left ring finger there is evidence of a paronychial infection. The area is still minimally swollen but it is discolored. There is approximately a 1 cm of epidermal tissue that likely was containing a pocket of purulent drainage prior to the lesion being incised.. ABSENT: rash Results Laboratory Results: 11/11/19 06:54 11/11/19 06:54 11/10/19 11/10/19 11/10/19 17:05 17:05 17:05 WBC Cancelled RBC Cancelled Hgb Cancelled Hct Cancelled MCV Cancelled MCH Cancelled MCHC Cancelled RDW Cancelled Plt Count Cancelled Seg Neutrophils % Cancelled VBG pH VBG pCO2 VBG HCO3 VBG Base Excess Sodium Cancelled Potassium Cancelled Chloride Cancelled Carbon Dioxide Cancelled Anion Gap Cancelled BUN Cancelled Creatinine Cancelled Est GFR ( Amer) Cancelled Est GFR (Non-Af Amer) Cancelled Glucose Cancelled Lactic Acid Calcium Cancelled Magnesium Urine Color YELLOW Urine Appearance SLIGHTLY-CLOUDY Urine pH 6.0 Ur Specific [place] 1.016 Urine Protein 30 H Urine Glucose (UA) >=500 H Urine Ketones NEGATIVE Urine Blood NEGATIVE Urine Nitrite NEGATIVE Ur Leukocyte Esterase SMALL H Urine WBC (Auto) 4 Urine RBC (Auto) 3 11/10/19 11/10/19 11/10/19 18:22 18:22 18:26 WBC 15.0 H RBC 3.71 L Hgb 10.5 L Hct 32.1 L MCV 87 MCH 28.3 MCHC 32.8 RDW 15.7 H Plt Count 833 H Seg Neutrophils % 73.8 VBG pH VBG pCO2 VBG HCO3 VBG Base Excess Sodium 137.0 Potassium 3.9 Chloride 99 Carbon Dioxide 27 Anion Gap 11 BUN 4 L Creatinine 0.48 L Est GFR ( Amer) > 60 Est GFR (Non-Af Amer) Glucose 228 H Lactic Acid 2.5 H Calcium 8.9 Magnesium Urine Color Urine Appearance Urine pH Ur Specific [place] Urine Protein Urine Glucose (UA) Urine Ketones Urine Blood Urine Nitrite Ur Leukocyte Esterase Urine WBC (Auto) Urine RBC (Auto) 11/10/19 11/10/19 11/11/19 18:27 23:06 01:46 WBC RBC Hgb Hct MCV MCH MCHC RDW Plt Count Seg Neutrophils % VBG pH 7.40 VBG pCO2 49.8 VBG HCO3 30.3 VBG Base Excess 4.7 Sodium Potassium Chloride Carbon Dioxide Anion Gap BUN Creatinine Est GFR ( Amer) Est GFR (Non-Af Amer) Glucose Lactic Acid 3.5 H 2.3 H Calcium Magnesium Urine Color Urine Appearance Urine pH Ur Specific [place] Urine Protein Urine Glucose (UA) Urine Ketones Urine Blood Urine Nitrite Ur Leukocyte Esterase Urine WBC (Auto) Urine RBC (Auto) 11/11/19 11/11/19 11/11/19 06:54 06:54 06:54 WBC 10.4 RBC 3.28 L Hgb 9.4 L Hct 27.5 L MCV 84 MCH 28.6 MCHC 34.1 RDW 15.7 H Plt Count 714 H Seg Neutrophils % VBG pH VBG pCO2 VBG HCO3 VBG Base Excess Sodium 139.4 Potassium 3.9 Chloride 102 Carbon Dioxide 28 Anion Gap 9 BUN 3 L Creatinine 0.48 L Est GFR ( Amer) > 60 Est GFR (Non-Af Amer) Glucose 182 H Lactic Acid 1.9 Calcium 8.8 Magnesium 1.7 Urine Color Urine Appearance Urine pH Ur Specific [place] Urine Protein Urine Glucose (UA) Urine Ketones Urine Blood Urine Nitrite Ur Leukocyte Esterase Urine WBC (Auto) Urine RBC (Auto) 11/10/19 18:22 CK-MB (CK-2) < 0.22 Troponin I < 0.012 Impressions: Chest X-Ray 11/10/19 15:53 IMPRESSION: Unchanged multifocal pneumonia with a probable small right parapneumonic pleural effusion. Assessment and Plan - Diagnosis (1) Multifocal pneumonia Is this a current diagnosis for this admission?: Yes Plan: Patient recently diagnosed with pneumonia but could not complete outpatient antibiotic therapy. She returns with worsened areas of consolidation mostly in the right upper lobe. Sputum culture was positive for MRSA during her last admission. She is on Miranda nasal lid. She is also on azithromycin and ceftriaxone. We will watch the sputum culture closely and taper her antibiotic therapy as soon as possible. (2) Acute respiratory failure with hypoxia Is this a current diagnosis for this admission?: Yes Plan: She still requires oxygen supplement. Will wean as tolerated. She is getting nebulizers and treatment for her pneumonia. (3) SIRS (systemic inflammatory response syndrome) Is this a current diagnosis for this admission?: Yes Plan: The patient had an elevated glucose, elevated lactic acid, increased work of breathing and hypoxia. She has responded to antibiotic therapy. She is receiving lactated Ringer's at 167 mL an hour x4 bags and then will be reevaluated. Lactic acid is now normal. She still requires supplemental oxygen and her pneumonia is actively being treated. (4) Tachycardia Is this a current diagnosis for this admission?: Yes Plan: Secondary to Sirs and infection. With fluids the heart rate is slowing. Will monitor closely on telemetry. (5) Pleuritic chest pain Is this a current diagnosis for this admission?: Yes Plan: It matches the area of her pneumonia. Pain management and supportive care (6) Elevated lactic acid level Is this a current diagnosis for this admission?: Yes Plan: Secondary to severe illness/Sirs. Resolved with IV fluids. (7) Abscess of left ring finger Is this a current diagnosis for this admission?: Yes Plan: Still some swelling. MRSA was cultured. She is on Miranda nasal lid. I have added local care with diluted Betadine soak and application of Bactroban. (8) Diabetes mellitus with hyperglycemia Qualifiers: Diabetes mellitus type: type 2 Diabetes mellitus intermission coordinator insulin use: with intermission coordinator use Qualified Code(s): E11.65 - Type 2 diabetes mellitus with hyperglycemia; Z79.4 - longterm (current) use of insulin Is this a current diagnosis for this admission?: Yes Plan: The patient's glucose is up secondary to the infection and severe illness. She will be on her metformin, long-acting insulin and sliding scale. We will adjust the Lantus based on the sliding scale insulin requirements (9) Seizure disorder Is this a current diagnosis for this admission?: Yes Plan: The patient's phenytoin level was low. She received a bolus and is on scheduled dosing. - Plan Summary Summary: Patient is admitted to the medical floor on telemetry bed for routine supportive and symptomatic cares. She will receive supplemental oxygen via nasal cannula with the use of noninvasive airway pressure support devices such as BiPAP or CPAP as needed to provide adequate oxygenation. She will receive an aggressive pulmonary toilet utilizing Xopenex, Atrovent and Mucomyst delivered via nebulizer. She will be treated with IV linezolid, IV ceftriaxone and IV azithromycin. She will receive morphine sulfate 2 to 4 mg IV every 2 hours on as-needed basis for control of her pain. She will be continued on her usual home medications for her chronic medical problems as appropriate and per formulary availability. CBCs, metabolic profiles and magnesium levels will be performed on a regular basis as needed. Before meals and at bedtime Accu-Cheks will be performed with sliding scale insulin used to cover hyperglycemia and a hypoglycemic protocol in place. - Time Time Spent with patient: 15-24 minutes Medications reviewed and adjusted accordingly: Yes Anticipated discharge: Home
[2019-11-11] MEDS: FAMOTIDINE 20 MG TABLET PO SCH ×2 (14:06→21:31)
[2019-11-11] MEDS: AZITHROMYCIN 500 MG in DEXTROSE 5%-WATER 250 ML IV SCH (14:07)
[2019-11-11] MEDS: MUPIROCIN 2% OINTMENT 22 GM TP SCH (14:08)
[2019-11-11] MEDS: DOCUSATE SODIUM 100 MG CAPSULE PO SCH ×2 (14:21→17:20)
[2019-11-11] MEDS: GUAIFENESIN/D-METHORPHAN (200-20 MG) SYRUP 10 ML PO PRN ×2 (14:47→23:59)
[2019-11-11] MEDS: LINEZOLID 600 MG/300 ML RTUPB IV SCH ×2 (14:50→23:40)
[2019-11-11] MEDS: METFORMIN HCL 500 MG TABLET PO SCH (17:16)
[2019-11-11] MEDS: MELATONIN 5 MG TABLET PO PRN (21:31)
[2019-11-11] MEDS: GUAIFENESIN 600 MG TABLET.SA PO SCH (21:31)
[2019-11-11] MEDS: INSULIN GLARGINE,HUM.REC.ANLOG 1,000 UNIT/10 ML VIAL SUBCUT SCH (21:33)
[2019-11-11] MEDS ORDERED: INSULIN GLARGINE,HUM.REC.ANLOG 1,000 UNIT/10 ML VIAL SUBCUT SCH (22:00)
[2019-11-12] MEDS: PROMETHAZINE HCL INJ 25 MG/1 ML VIAL IV PRN (03:51)
[2019-11-12 05:29] LABS: HEMATOCRIT 27.3 % (36.0-47.0); HEMOGLOBIN 9.3 g/dL (12.0-15.5); MEAN CORPUSCULAR HEMOGLOBIN 28.8 pg (27.0-33.4); MEAN CORPUSCULAR VOLUME 85 fl (80-97); PLATELET COUNT 714 10^3/uL (150-450); RED BLOOD COUNT 3.22 10^6/uL (3.72-5.28); RED CELL DISTRIBUTION WIDTH 15.6 % (11.5-14.0); WHITE BLOOD COUNT 8.7 10^3/uL (4.0-10.5)
[2019-11-12 05:48] LABS: ANION GAP 10 (5-19); BLOOD UREA NITROGEN 2 mg/dL (7-20); CALCIUM 8.8 mg/dL (8.4-10.2); CARBON DIOXIDE 27 mmol/L (22-30); CHLORIDE 102 mmol/L (98-107); GLUCOSE 130 mg/dL (75-110); POTASSIUM 4.2 mmol/L (3.6-5.0)
[2019-11-12] MEDS: PHENYTOIN SODIUM EXTENDED 100 MG CAPSULE PO SCH ×3 (06:09→22:24)
[2019-11-12] MEDS: HEPARIN SOD (PORCINE) 5,000 UNIT/ML 1 ML VIAL SUBCUT SCH ×3 (06:10→22:22)
[2019-11-12] MEDS: ACETYLCYSTEINE 20% SOLN 800 MG/4 ML VIAL.NEB NEB SCH (07:54)
[2019-11-12] MEDS: IPRATROPIUM BROMIDE 0.02% NEB 0.5 MG/2.5 ML AMPUL NEB SCH (07:54)
[2019-11-12] MEDS: LEVALBUTEROL HCL NEB 1.25 MG/3 ML AMPUL NEB SCH (07:54)
[2019-11-12] MEDS: INSULIN LISPRO 100 UNIT/ML 3 ML VIAL SUBCUT SCH ×7 (08:45→21:00)
[2019-11-12] MEDS: METFORMIN HCL 500 MG TABLET PO SCH ×2 (08:46→18:36)
[2019-11-12] MEDS: ACETAMINOPHEN 325 MG TABLET PO PRN ×2 (08:51→18:50)
[2019-11-12] MEDS: FAMOTIDINE 20 MG TABLET PO SCH ×2 (09:30→22:23)
[2019-11-12] MEDS: GUAIFENESIN 600 MG TABLET.SA PO SCH ×2 (09:30→22:23)
[2019-11-12] MEDS: AZITHROMYCIN 500 MG in DEXTROSE 5%-WATER 250 ML IV SCH (09:32)
[2019-11-12] MEDS ORDERED: (PENDING PHARMACY ID) (Lisinopril [Lisinopril] 20 MG) PO SCH (10:00)
[2019-11-12] MEDS ORDERED: LIDOCAINE TD SCH (10:00)
--- NOTE | 2019-11-12 11:15 | PDOC PROGRESS REPORT ---
Subjective Progress Note for:: 11/12/19 Subjective:: The patient still reports coughing up green sputum. She believes that the chest percussion therapy is helping. She appears to be down to 1 L by nasal cannula. She has been walking to the bathroom and did sit in the chair for over an hour yesterday. Reason For Visit: SIRS Physical Exam Vital Signs: Temp Pulse Resp BP Pulse Ox 98.0 F 90 17 135/70 H 98 11/12/19 07:32 11/12/19 07:54 11/12/19 07:54 11/12/19 07:32 11/12/19 07:54 Intake & Output 11/11/19 11/12/19 11/13/19 06:59 06:59 06:59 Intake Total 2272 3678 Output Total 400 3000 Balance 1872 678 Weight 68.7 kg 73.4 kg General appearance: PRESENT: no acute distress, cooperative, well-developed Head exam: PRESENT: atraumatic, normocephalic Eye exam: PRESENT: conjunctiva pale. ABSENT: scleral icterus Ear exam: PRESENT: normal external ear exam. ABSENT: bleeding, drainage Mouth exam: PRESENT: moist, tongue midline Respiratory exam: PRESENT: chest wall tenderness, rhonchi - Still with rhonchi right upper lobe, symmetrical, unlabored. ABSENT: accessory muscle use, rales, tachypnea, wheezes Cardiovascular exam: PRESENT: RRR, +S1, +S2, systolic murmur - 2/6 GI/Abdominal exam: PRESENT: normal bowel sounds, soft. ABSENT: distended, guarding, mass, tenderness Rectal exam: PRESENT: deferred Gentrourinary exam: ABSENT: indwelling catheter Extremities exam: ABSENT: joint swelling, pedal edema Musculoskeletal exam: PRESENT: ambulatory, normal inspection Neurological exam: PRESENT: alert, awake, oriented to person, oriented to place, oriented to time, oriented to situation. ABSENT: CN II-XII grossly intact Psychiatric exam: PRESENT: appropriate affect. ABSENT: agitated, anxious Focused psych exam: ABSENT: delusional, restlessness Skin exam: PRESENT: dry, normal color, warm. ABSENT: rash Results Laboratory Results: 11/12/19 05:03 11/12/19 05:03 11/12/19 11/12/19 05:03 05:03 WBC 8.7 RBC 3.22 L Hgb 9.3 L Hct 27.3 L MCV 85 MCH 28.8 MCHC 34.0 RDW 15.6 H Plt Count 714 H Sodium 138.9 Potassium 4.2 Chloride 102 Carbon Dioxide 27 Anion Gap 10 BUN 2 L Creatinine 0.52 Est GFR ( Amer) > 60 Glucose 130 H Calcium 8.8 Magnesium 1.7 11/10/19 17:05 Sputum Gram Stain - Final 11/10/19 17:05 Sputum Sputum Culture - Final NORMAL MIKE 11/10/19 17:05 Clean Catch Midstream Urine Culture - Final C.albicans/C.dubliniensis 11/10/19 18:22 CK-MB (CK-2) < 0.22 Troponin I < 0.012 Impressions: Chest X-Ray 11/10/19 15:53 IMPRESSION: Unchanged multifocal pneumonia with a probable small right parap neumonic pleural effusion. Assessment and Plan - Diagnosis (1) Multifocal pneumonia Is this a current diagnosis for this admission?: Yes Plan: The patient's white count remains normal. Clinically she is improved in the right upper lobe. She continues to cough out mucus. I will add a flutter valve to her regimen. I have weaned down the antibiotics to just Miranda nasal lid based on her history of MRSA positive cultures. (2) Acute respiratory failure with hypoxia Is this a current diagnosis for this admission?: Yes Plan: Continue aggressive therapy with antibiotics and nebulizers and wean oxygen as tolerated. (3) SIRS (systemic inflammatory response syndrome) Is this a current diagnosis for this admission?: Yes Plan: Resolved with fluid and antibiotics (4) Tachycardia Is this a current diagnosis for this admission?: Yes Plan: Resolved with IV fluids (5) Pleuritic chest pain Is this a current diagnosis for this admission?: Yes Plan: The area is still sore. Part of this is because she had inpatient therapy but failed to seed cone picker her outpatient antibiotics and her pneumonia worsened. So she has an extended window of underlying inflammation leading to the pleurisy. (6) Elevated lactic acid level Is this a current diagnosis for this admission?: Yes Plan: Resolved with IV fluids (7) Abscess of left ring finger Is this a current diagnosis for this admission?: Yes Plan: Previously treated. I have ordered Betadine soaks with Bactroban topical daily. (8) Diabetes mellitus with hyperglycemia Qualifiers: Diabetes mellitus type: type 2 Diabetes mellitus senior care insulin use: with senior care use Qualified Code(s): E11.65 - Type 2 diabetes mellitus with hyperglycemia; Z79.4 - group home (current) use of insulin Is this a current diagnosis for this admission?: Yes Plan: Glucose is well controlled. Occasional low blood sugar. Will need to monitor and adjust treatment if needed. (9) Seizure disorder Is this a current diagnosis for this admission?: Yes Plan: Continue home dose of Dilantin. - Plan Summary Summary: Patient is admitted to the medical floor on telemetry bed for routine supportive and symptomatic cares. She will receive supplemental oxygen via nasal cannula with the use of noninvasive airway pressure support devices such as BiPAP or CPAP as needed to provide adequate oxygenation. She will receive an aggressive pulmonary toilet utilizing Xopenex, Atrovent and Mucomyst delivered via nebulizer. She will be treated with IV linezolid, IV ceftriaxone and IV azithromycin. She will receive morphine sulfate 2 to 4 mg IV every 2 hours on as-needed basis for control of her pain. She will be continued on her usual home medications for her chronic medical problems as appropriate and per formulary availability. CBCs, metabolic profiles and magnesium levels will be performed on a regular basis as needed. Before meals and at bedtime Accu-Cheks will be performed with sliding scale insulin used to cover hyperglycemia and a hypoglycemic protocol in place. - Time Time Spent with patient: 15-24 minutes Medications reviewed and adjusted accordingly: Yes Anticipated discharge: Home
[2019-11-12] MEDS: LINEZOLID 600 MG/300 ML RTUPB IV SCH ×2 (11:39→22:22)
[2019-11-12] MEDS ORDERED: CEFTRIAXONE 1 GM/D5W RTU 1 GM/50 ML RTUPB IV SCH (12:00)
[2019-11-12] MEDS ORDERED: IPRATROPIUM/ALBUTEROL 0.5-2.5 MG/3 ML AMPUL NEB PRN (12:12)
[2019-11-12] MEDS: DOCUSATE SODIUM 100 MG CAPSULE PO SCH ×2 (13:04→18:52)
[2019-11-12] MEDS: IPRATROPIUM/ALBUTEROL 0.5-2.5 MG/3 ML AMPUL NEB SCH ×2 (14:05→20:37)
[2019-11-12] MEDS: MUPIROCIN 2% OINTMENT 22 GM TP SCH (15:44)
[2019-11-12] MEDS: BUDESONIDE NEB 0.5 MG/2 ML AMPUL NEB SCH (20:37)
[2019-11-12] MEDS: INSULIN GLARGINE,HUM.REC.ANLOG 1,000 UNIT/10 ML VIAL SUBCUT SCH (22:23)
[2019-11-12] MEDS: MELATONIN 5 MG TABLET PO PRN (22:23)
[2019-11-13] MEDS: IPRATROPIUM/ALBUTEROL 0.5-2.5 MG/3 ML AMPUL NEB SCH ×4 (02:17→20:25)
[2019-11-13 05:34] LABS: HEMATOCRIT 28.3 % (36.0-47.0); HEMOGLOBIN 9.6 g/dL (12.0-15.5); MEAN CORPUSCULAR HEMOGLOBIN 28.5 pg (27.0-33.4); MEAN CORPUSCULAR HGB CONC 33.9 g/dL (32.0-36.0); MEAN CORPUSCULAR VOLUME 84 fl (80-97); PLATELET COUNT 749 10^3/uL (150-450); RED BLOOD COUNT 3.37 10^6/uL (3.72-5.28); RED CELL DISTRIBUTION WIDTH 15.7 % (11.5-14.0); WHITE BLOOD COUNT 7.8 10^3/uL (4.0-10.5)
[2019-11-13] MEDS: HEPARIN SOD (PORCINE) 5,000 UNIT/ML 1 ML VIAL SUBCUT SCH ×3 (06:03→22:19)
[2019-11-13] MEDS: PHENYTOIN SODIUM EXTENDED 100 MG CAPSULE PO SCH ×3 (06:04→22:19)
[2019-11-13 06:08] LABS: ANION GAP 8 (5-19); BLOOD UREA NITROGEN 3 mg/dL (7-20); CALCIUM 8.8 mg/dL (8.4-10.2); CARBON DIOXIDE 26 mmol/L (22-30); CHLORIDE 103 mmol/L (98-107); GLUCOSE 112 mg/dL (75-110); POTASSIUM 4.5 mmol/L (3.6-5.0)
[2019-11-13] MEDS: INSULIN LISPRO 100 UNIT/ML 3 ML VIAL SUBCUT SCH ×6 (08:01→22:20)
[2019-11-13] MEDS: METFORMIN HCL 500 MG TABLET PO SCH ×2 (08:01→17:00)
[2019-11-13] MEDS: BUDESONIDE NEB 0.5 MG/2 ML AMPUL NEB SCH ×2 (08:02→20:24)
[2019-11-13] MEDS: DOCUSATE SODIUM 100 MG CAPSULE PO SCH ×2 (09:58→17:38)
[2019-11-13] MEDS: GUAIFENESIN 600 MG TABLET.SA PO SCH ×2 (09:58→22:18)
[2019-11-13] MEDS: FAMOTIDINE 20 MG TABLET PO SCH ×2 (09:58→22:19)
[2019-11-13] MEDS: MUPIROCIN 2% OINTMENT 22 GM TP SCH (09:59)
[2019-11-13] MEDS: LINEZOLID 600 MG/300 ML RTUPB IV SCH ×2 (12:13→22:19)
--- NOTE | 2019-11-13 17:12 | PDOC PROGRESS REPORT ---
Subjective Progress Note for:: 11/13/19 Subjective:: The patient is a 54-year-old female with a past medical history of hypertension, hyperlipidemia, bronchitis, seizure disorder, uncontrolled DM 2, arthritis who was admitted 11/10/2019 for Healthcare associated multifocal pneumonia. The patient was seen on morning rounds. She was found sitting up to the edge of the bed, comfortably, on room air. She reports that she is feeling much better today. She does continue to have significant shortness of breath with mild activity and a productive cough. She feels like the chest physiotherapy has made a significant difference in her ability to expectorate. Overall she is feeling improved. She does endorse continued generalized malaise and fatigue. She denies fever, chills, chest pain, palpitations, orthopnea, abdominal pain, nausea vomiting and diarrhea. She has no other questions or concerns today. No concerns per nursing. Reason For Visit: SIRS Physical Exam Vital Signs: Temp Pulse Resp BP Pulse Ox 98.4 F 99 16 138/66 H 98 11/13/19 10:57 11/13/19 14:22 11/13/19 14:22 11/13/19 10:57 11/13/19 14:22 Intake & Output 11/12/19 11/13/19 11/14/19 06:59 06:59 06:59 Intake Total 3678 1875 640 Output Total 3000 2450 750 Balance 678 -575 -110 Weight 73.4 kg 73.7 kg General appearance: PRESENT: no acute distress, cooperative, well-developed, well-nourished Head exam: PRESENT: atraumatic, normocephalic Eye exam: PRESENT: conjunctiva pink, EOMI, PERRLA. ABSENT: scleral icterus Ear exam: PRESENT: normal external ear exam Mouth exam: PRESENT: moist, tongue midline Neck exam: ABSENT: carotid bruit, JVD, lymphadenopathy, thyromegaly Respiratory exam: PRESENT: rhonchi - Throughout, symmetrical, unlabored, other. ABSENT: rales, wheezes Cardiovascular exam: PRESENT: RRR, +S1, +S2. ABSENT: diastolic murmur, rubs, systolic murmur Pulses: PRESENT: normal dorsalis pedis pul Vascular exam: PRESENT: normal capillary refill GI/Abdominal exam: PRESENT: normal bowel sounds, soft. ABSENT: distended, gu arding, mass, organolmegaly, rebound, tenderness Rectal exam: PRESENT: deferred Extremities exam: PRESENT: full ROM. ABSENT: calf tenderness, clubbing, pedal edema Musculoskeletal exam: PRESENT: ambulatory Neurological exam: PRESENT: alert, awake, oriented to person, oriented to place, oriented to time, oriented to situation, CN II-XII grossly intact. ABSENT: motor sensory deficit Psychiatric exam: PRESENT: appropriate affect, normal mood. ABSENT: homicidal ideation, suicidal ideation Skin exam: PRESENT: dry, intact, warm. ABSENT: cyanosis, rash Results Laboratory Results: 11/13/19 04:16 11/13/19 04:16 11/13/19 11/13/19 04:16 04:16 WBC 7.8 RBC 3.37 L Hgb 9.6 L Hct 28.3 L MCV 84 MCH 28.5 MCHC 33.9 RDW 15.7 H Plt Count 749 H Sodium 136.9 L Potassium 4.5 Chloride 103 Carbon Dioxide 26 Anion Gap 8 BUN 3 L Creatinine 0.54 Est GFR ( Amer) > 60 Glucose 112 H Calcium 8.8 Magnesium 1.6 11/10/19 17:05 Sputum Gram Stain - Final 11/10/19 17:05 Sputum Sputum Culture - Final NORMAL ALEJANDRO 11/10/19 18:22 CK-MB (CK-2) < 0.22 Troponin I < 0.012 Impressions: Chest X-Ray 11/10/19 15:53 IMPRESSION: Unchanged multifocal pneumonia with a probable small right parapneumonic pleural effusion. Assessment and Plan - Diagnosis (1) Multifocal pneumonia Is this a current diagnosis for this admission?: Yes Plan: Improved. Leukocytosis improved, vital signs stabilized, now maintaining oxygen satura tions on room air while at rest. Blood cultures are negative to date. Sputum culture shows normal respiratory alejandro. Of note, sputum culture from 10/31/2019 showed MRSA. She is admitted to the medical floor on continuous cardiac telemetry. Continue supplemental oxygen as needed maintain saturations greater than 89%. Continue IV Zyvox; day #2. Scheduled and as needed nebulizer treatments. Aggressive pulmonary toilet with flutter valve, incentive spirometer, chest physiotherapy, and ambulation. Mucinex twice daily. (2) Acute respiratory failure with hypoxia Is this a current diagnosis for this admission?: Yes Plan: Improved; now maintaining oxygen saturations on room air while at rest. Continue supplemental oxygen as needed to mean saturations greater than 90%. Continue scheduled and as needed nebulizer treatments. Remaining management of pneumonia as addressed above. (3) Diabetes mellitus type 2 in nonobese Is this a current diagnosis for this admission?: Yes Plan: A1c (10/27/2019) 10.8%. Continue twice daily metformin. Continue Lantus 14 units nightly. Humalog for sliding scale coverage. Diabetic diet. Registered dietitian and patient educator consulted. (4) Pleuritic chest pain Is this a current diagnosis for this admission?: Yes Plan: Improved. It matches the area of her pneumonia. Pain management and supportive care (5) Tachycardia Is this a current diagnosis for this admission?: Yes Plan: Secondary to pneumonia and infection. With fluids the heart rate is slowing; now averaging mid-90s. Will monitor closely on telemetry. (6) Seizure disorder Is this a current diagnosis for this admission?: Yes Plan: The patient's phenytoin level was low. She received a bolus and is on scheduled dosing. Seizure precautions. (7) Essential hypertension Is this a current diagnosis for this admission?: Yes Plan: Acceptable blood pressures. IV hydralazine as needed. Does not appear that the patient is on home antihypertensive medications. Consistent carb/cardiac diet. Consider start of ZION inhibitor prior to discharge. (8) Elevated lactic acid level Is this a current diagnosis for this admission?: Yes Plan: Secondary to severe illness. Resolved with IV fluids. (9) Sepsis Qualifiers: Sepsis type: sepsis due to unspecified organism Sepsis acute organ dysfunction status: with acute organ dysfunction Severe sepsis acute organ dysfunction type: acute respiratory failure Acute respiratory failure type: with hypoxia Severe sepsis shock status: without septic shock Qualified Code(s): A41.9 - Sepsis, unspecified organism; R65.20 - Severe sepsis without septic shock; J96.01 - Acute respiratory failure with hypoxia Is this a current diagnosis for this admission?: Yes Plan: Resolved. Due to healthcare associated multifocal pneumonia, present on admission, evidenced by an elevated glucose, elevated lactic acid, increased work of breathing and hypoxia with tachycardia and tachypnea. Blood cultures are negative at 48 hours. Sputum culture showed normal alejandro. She continues on IV Zyvox for healthcare associated pneumonia. She received appropriate IV fluid resuscitation. Continue supplemental oxygen as needed to maintain saturations. Remaining evaluation management as above. (10) SIRS (systemic inflammatory response syndrome) Is this a current diagnosis for this admission?: Yes Plan: Patient was diagnosed with healthcare associated multifocal pneumonia; therefore, patient had sepsis and not SIRS The patient had an elevated glucose, elevated lactic acid, increased work of alvaro athing and hypoxia. She has responded to antibiotic therapy. She is receiving lactated Ringer's at 167 mL an hour x4 bags and then will be reevaluated. Lactic acid is now normal. She still requires supplemental oxygen and her pneumonia is actively being treated. (11) Hyperlipidemia Qualifiers: Hyperlipidemia type: unspecified Qualified Code(s): E78.5 - Hyperlipidemia, unspecified Is this a current diagnosis for this admission?: Yes Plan: Cardiac diet. - Plan Summary Summary: Patient is admitted to the medical floor on telemetry bed for routine supportive and symptomatic cares. She will receive supplemental oxygen via nasal cannula with the use of noninvasive airway pressure support devices such as BiPAP or CPAP as needed to provide adequate oxygenation. She will receive an aggressive pulmonary toilet utilizing Xopenex, Atrovent and Mucomyst delivered via nebulizer. She will be treated with IV linezolid, IV ceftriaxone and IV azithromycin. She will receive morphine sulfate 2 to 4 mg IV every 2 hours on as-needed basis for control of her pain. She will be continued on her usual home medications for her chronic medical problems as appropriate and per formulary availability. CBCs, metabolic profiles and magnesium levels will be performed on a regular basis as needed. Before meals and at bedtime Accu-Cheks will be performed with sliding scale insulin used to cover hyperglycemia and a hypoglycemic protocol in place.
[2019-11-13] MEDS: INSULIN GLARGINE,HUM.REC.ANLOG 1,000 UNIT/10 ML VIAL SUBCUT SCH (22:18)
[2019-11-13] MEDS: MELATONIN 5 MG TABLET PO PRN (22:19)
[2019-11-14] MEDS: IPRATROPIUM/ALBUTEROL 0.5-2.5 MG/3 ML AMPUL NEB SCH ×4 (02:17→20:22)
[2019-11-14] MEDS: HEPARIN SOD (PORCINE) 5,000 UNIT/ML 1 ML VIAL SUBCUT SCH ×3 (06:01→21:39)
[2019-11-14] MEDS: PHENYTOIN SODIUM EXTENDED 100 MG CAPSULE PO SCH ×3 (06:01→21:37)
[2019-11-14] MEDS: BUDESONIDE NEB 0.5 MG/2 ML AMPUL NEB SCH ×2 (07:41→20:22)
[2019-11-14] MEDS: INSULIN LISPRO 100 UNIT/ML 3 ML VIAL SUBCUT SCH ×4 (08:20→21:38)
[2019-11-14] MEDS: METFORMIN HCL 500 MG TABLET PO SCH ×2 (08:30→17:52)
[2019-11-14] MEDS: PROMETHAZINE HCL INJ 25 MG/1 ML VIAL IV PRN (08:34)
[2019-11-14] MEDS: MUPIROCIN 2% OINTMENT 22 GM TP SCH (10:04)
[2019-11-14] MEDS: DOCUSATE SODIUM 100 MG CAPSULE PO SCH ×2 (10:04→17:53)
[2019-11-14] MEDS: FAMOTIDINE 20 MG TABLET PO SCH ×2 (10:04→21:37)
[2019-11-14] MEDS: GUAIFENESIN 600 MG TABLET.SA PO SCH ×2 (10:04→21:37)
[2019-11-14] MEDS: LINEZOLID 600 MG/300 ML RTUPB IV SCH (10:39)
[2019-11-14] MEDS: GUAIFENESIN/D-METHORPHAN (200-20 MG) SYRUP 10 ML PO PRN ×2 (10:41→21:44)
--- NOTE | 2019-11-14 17:55 | PDOC PROGRESS REPORT ---
Subjective Progress Note for:: 11/14/19 Subjective:: The patient is a 54-year-old female with a past medical history of hypertension, hyperlipidemia, bronchitis, seizure disorder, uncontrolled DM 2, arthritis who was admitted 11/10/2019 for Healthcare associated multifocal pneumonia. The patient was seen on morning rounds. She was found sitting up to the edge of the bed, comfortably, on room air. She reports that she is feeling much better today. She does endorse continued generalized malaise and fatigue. Overall she is feeling improved. She denies fever, chills, chest pain, palpitations, orthopnea, dyspnea, cough, abdominal pain, nausea vomiting and diarrhea. She has no other questions or concerns today. No concerns per nursing. Reason For Visit: SIRS Physical Exam Vital Signs: Temp Pulse Resp BP Pulse Ox 98.4 F 100 17 116/78 97 11/14/19 16:28 11/14/19 16:28 11/14/19 16:28 11/14/19 16:28 11/14/19 16:28 Intake & Output 11/13/19 11/14/19 11/15/19 06:59 06:59 06:59 Intake Total 1875 1500 480 Output Total 2450 1750 Balance -575 -250 480 Weight 73.7 kg 73.1 kg 73 kg General appearance: PRESENT: no acute distress, cooperative, well-developed, well-nourished Head exam: PRESENT: atraumatic, normocephalic Eye exam: PRESENT: conjunctiva pink, EOMI, PERRLA. ABSENT: scleral icterus Ear exam: PRESENT: normal external ear exam Mouth exam: PRESENT: moist, tongue midline Neck exam: ABSENT: carotid bruit, JVD, lymphadenopathy, thyromegaly Respiratory exam: PRESENT: clear to auscultation morelia, symmetrical, unlabored. ABSENT: rales, rhonchi, wheezes Cardiovascular exam: PRESENT: RRR. ABSENT: diastolic murmur, rubs, systolic murmur Pulses: PRESENT: normal dorsalis pedis pul Vascular exam: PRESENT: normal capillary refill GI/Abdominal exam: PRESENT: normal bowel sounds, soft. ABSENT: distended, guarding, mass, organolmegaly, rebound, tenderness Rectal exam: PRESENT: deferred Extremities exam: PRESENT: full ROM. ABSENT: calf tenderness, clubbing, pedal edema Musculoskeletal exam: PRESENT: ambulatory Neurological exam: PRESENT: alert, awake, oriented to person, oriented to place, oriented to time, oriented to situation, CN II-XII grossly intact. ABSENT: motor sensory deficit Psychiatric exam: PRESENT: appropriate affect, normal mood. ABSENT: homicidal ideation, suicidal ideation Skin exam: PRESENT: dry, intact, warm. ABSENT: cyanosis, rash Results Laboratory Results: 11/13/19 04:16 11/13/19 04:16 11/10/19 18:22 CK-MB (CK-2) < 0.22 Troponin I < 0.012 Impressions: Chest X-Ray 11/10/19 15:53 IMPRESSION: Unchanged multifocal pneumonia with a probable small right parapneumonic pleural effusion. Assessment and Plan - Diagnosis (1) Multifocal pneumonia Is this a current diagnosis for this admission?: Yes Plan: Patient was admitted to the medical floor. She is provided supplemental oxygen as needed; has since weaned to room air while ambulatory. She is provided scheduled and as needed nebulizer treatments. Pulmonary toilet was encouraged with chest physiotherapy, incentive spirometer, flutter valve, and encouraged ambulation. She was empirically placed on IV Zyvox due to healthcare associated pneumonia as this patient has recently been discharged for this facility after treatment for pneumonia. Blood cultures remain negative to date. Sputum culture shows normal alejandro. Sputum culture from prior admission showed MRSA with sensitivities to clindamycin and Bactrim. Zyvox discontinued today; transition to p.o. Bactrim. If patient tolerates medication well will discharge first thing the morning. (2) Acute respiratory failure with hypoxia Is this a current diagnosis for this admission?: Yes Plan: Resolved. Evaluation and management as above. (3) Diabetes mellitus type 2 in nonobese Is this a current diagnosis for this admission?: Yes Plan: A1c (10/27/2019) 10.8%. Continue twice daily metformin. Continue Lantus 14 units nightly. Humalog for sliding scale coverage. Diabetic diet. Registered dietitian and patient educator consulted. (4) Pleuritic chest pain Is this a current diagnosis for this admission?: Yes Plan: Resolved. (5) Tachycardia Is this a current diagnosis for this admission?: Yes Plan: Resolved with IV fluids (6) Seizure disorder Is this a current diagnosis for this admission?: Yes Plan: Continue home dose of Dilantin. (7) Essential hypertension Is this a current diagnosis for this admission?: Yes Plan: Acceptable blood pressures. IV hydralazine as needed. Does not appear that the patient is on home antihypertensive medications. Consistent carb/cardiac diet. Consider start of ZION inhibitor prior to discharge. (8) Elevated lactic acid level Is this a current diagnosis for this admission?: Yes Plan: Resolved with IV fluids (9) Sepsis Qualifiers: Sepsis type: sepsis due to unspecified organism Sepsis acute organ dysfunction status: with acute organ dysfunction Severe sepsis acute organ dysfunction type: acute respiratory failure Acute respiratory failure type: with hypoxia Severe sepsis shock status: without septic shock Qualified Code (s): A41.9 - Sepsis, unspecified organism; R65.20 - Severe sepsis without septic shock; J96.01 - Acute respiratory failure with hypoxia Is this a current diagnosis for this admission?: Yes Plan: Resolved. Due to healthcare associated multifocal pneumonia, present on admission, evidenced by an elevated glucose, elevated lactic acid, increased work of breathing and hypoxia with tachycardia and tachypnea. Blood cultures are negative at 48 hours. Sputum culture showed normal alejandro. She continues on IV Zyvox for healthcare associated pneumonia. She received appropriate IV fluid resuscitation. Continue supplemental oxygen as needed to maintain saturations. Remaining evaluation management as above. (10) SIRS (systemic inflammatory response syndrome) Is this a current diagnosis for this admission?: Yes Plan: Resolved with fluid and antibiotics (11) Hyperlipidemia Qualifiers: Hyperlipidemia type: unspecified Qualified Code(s): E78.5 - Hyperlipidemia, unspecified Is this a current diagnosis for this admission?: Yes Plan: Cardiac diet. - Time Time Spent with patient: 15-24 minutes Medications reviewed and adjusted accordingly: Yes Anticipated discharge: Home Within: within 24 hours
[2019-11-14] MEDS: SULFAMETHOXAZOLE/TRIMETHOPRIM 800-160 MG TABLET PO SCH (18:05)
[2019-11-14] MEDS: MELATONIN 5 MG TABLET PO PRN (21:37)
[2019-11-14] MEDS: INSULIN GLARGINE,HUM.REC.ANLOG 1,000 UNIT/10 ML VIAL SUBCUT SCH (21:38)
[2019-11-15] MEDS: IPRATROPIUM/ALBUTEROL 0.5-2.5 MG/3 ML AMPUL NEB SCH ×2 (02:44→07:39)
[2019-11-15] MEDS: HEPARIN SOD (PORCINE) 5,000 UNIT/ML 1 ML VIAL SUBCUT SCH (05:37)
[2019-11-15] MEDS: PHENYTOIN SODIUM EXTENDED 100 MG CAPSULE PO SCH (05:37)
[2019-11-15] MEDS: BUDESONIDE NEB 0.5 MG/2 ML AMPUL NEB SCH (07:39)
[2019-11-15] MEDS: INSULIN LISPRO 100 UNIT/ML 3 ML VIAL SUBCUT SCH ×2 (09:34→13:46)
[2019-11-15] MEDS: FAMOTIDINE 20 MG TABLET PO SCH (09:35)
[2019-11-15] MEDS: SULFAMETHOXAZOLE/TRIMETHOPRIM 800-160 MG TABLET PO SCH (09:35)
[2019-11-15] MEDS: DOCUSATE SODIUM 100 MG CAPSULE PO SCH (09:35)
[2019-11-15] MEDS: METFORMIN HCL 500 MG TABLET PO SCH (09:35)
[2019-11-15] MEDS: GUAIFENESIN 600 MG TABLET.SA PO SCH (09:35)
[2019-11-15 11:19] VITALS: BP 131/72
[2019-11-15] MEDS: MUPIROCIN 2% OINTMENT 22 GM TP SCH (13:45)
== END 2019-11-15 13:47 | disposition home or self-care (01) | DRG 871 ==
LOC: ER 14:57 → EH 20:57 → 5 22:18
PROVIDERS: ADMIT Emergency Medicine; ATTEND Emergency Medicine
DX: A41.9 Sepsis, unspecified organism (principal); J15.212 Pneumonia due to Methicillin resistant Staphylococcus aureus; J96.01 Acute respiratory failure with hypoxia; L02.512 Cutaneous abscess of left hand; E11.65 Type 2 diabetes mellitus with hyperglycemia; I10 Essential (primary) hypertension; B95.62 Methicillin resistant Staphylococcus aureus infection as the cause of diseases classified elsewhere; I44.7 Left bundle-branch block, unspecified; G40.909 Epilepsy, unspecified, not intractable, without status epilepticus; R00.0 Tachycardia, unspecified; T36.96XA Underdosing of unspecified systemic antibiotic, initial encounter; D64.9 Anemia, unspecified; E78.5 Hyperlipidemia, unspecified; M19.90 Unspecified osteoarthritis, unspecified site; Z79.4 Long term (current) use of insulin; Z83.3 Family history of diabetes mellitus; Z91.120 Patient's intentional underdosing of medication regimen due to financial hardship; Z82.49 Family history of ischemic heart disease and other diseases of the circulatory system; Z83.42 Family history of familial hypercholesterolemia
CPT/HCPCS: 36415; 71046; 80048; 80185; 81001; 82553; 82803; 82962; 83605; 83735; 84484; 85025; 85027; 87040; 87070; 87086; 87205; 87804; 93005; 93010; 94640; 94667; 94668; 94799; 96361; 96365; 96368; 96375; 99291; 99292; J0456; J0696; J1165; J1644; J1815; J2020; J2543; J2550; J3370; J3490; J7040; J7060; J7120; J7614; J7620

== ENCOUNTER → 2019-12-19 | Outpatient (CLI) | payer OTHER ==
--- NOTE | 2019-12-19 09:41 | RADIOLOGY REPORT (SQ) ---
EXAM DESCRIPTION: CHEST PA/LATERAL COMPLETED DATE/TIME: 12/19/2019 9:19 am REASON FOR STUDY: OTHER PNEUMONIA, UNSPECIFIED ORGANISM COMPARISON: 11/10/2019 and 11/05/2019. EXAM PARAMETERS: NUMBER OF VIEWS: two views TECHNIQUE: Digital Frontal and Lateral radiographic views of the chest acquired. RADIATION DOSE: NA LIMITATIONS: none FINDINGS: LUNGS AND PLEURA: Improved aeration with virtual complete clearing of the previously seen pulmonary infiltrates. Minimal residual density in the right upper lobe. No pleural effusion or pne umothorax. MEDIASTINUM AND HILAR STRUCTURES: No masses or contour abnormalities. HEART AND VASCULAR STRUCTURES: Heart normal size. No evidence for failure. BONES: No acute findings. HARDWARE: None in the chest. OTHER: No other significant finding. IMPRESSION: SIGNIFICANTLY IMPROVED APPEARANCE. MINIMAL RESIDUAL AIRSPACE DISEASE OF THE RIGHT UPPER LOBE. TECHNICAL DOCUMENTATION: JOB ID: [id number] 2010 [employer]- All Rights Reserved Reading location - IP/workstation name: [email or web address]
[2019-12-19 09:47] LABS: ABSOLUTE EOSINOPHILS # (AUTO) 0.1 10^3/uL (0.0-0.6); ABSOLUTE LYMPHOCYTES (AUTO) 2.2 10^3/uL (0.5-4.7); ABSOLUTE MONOCYTES (AUTO) 0.3 10^3/uL (0.1-1.4); ABSOLUTE NEUT (AUTO) 2.9 10^3/uL (1.7-8.2); BASOPHILS % (AUTO) 0.4 % (0-2); EOSINOPHILS % (AUTO) 1.2 % (0-6); HEMATOCRIT 38.1 % (36.0-47.0); HEMOGLOBIN 12.8 g/dL (12.0-15.5); LYMPHOCYTES % (AUTO) 40.2 % (13-45); MEAN CORPUSCULAR HEMOGLOBIN 28.9 pg (27.0-33.4); MEAN CORPUSCULAR HGB CONC 33.6 g/dL (32.0-36.0); MEAN CORPUSCULAR VOLUME 86 fl (80-97); MONOCYTES % (AUTO) 5.2 % (3-13); PLATELET COUNT 292 10^3/uL (150-450); RED BLOOD COUNT 4.42 10^6/uL (3.72-5.28); RED CELL DISTRIBUTION WIDTH 17.8 % (11.5-14.0); TOTAL CELLS COUNTED % (AUTO) 100 %; WHITE BLOOD COUNT 5.5 10^3/uL (4.0-10.5)
[2019-12-19 10:28] LABS: ALBUMIN 4.3 g/dL (3.5-5.0); ALKALINE PHOSPHATASE 105 U/L (38-126); ASPARTATE AMINO TRANSFERASE 19 U/L (14-36); BILIRUBIN,DIRECT 0.3 mg/dL (0.0-0.4); BILIRUBIN,TOTAL 0.4 mg/dL (0.2-1.3); BLOOD UREA NITROGEN 13 mg/dL (7-20); CARBON DIOXIDE 29 mmol/L (22-30); CHLORIDE 101 mmol/L (98-107); GLUCOSE 202 mg/dL (75-110); IRON(TIBC) 72.1 ug/dL (37-170); POTASSIUM 5.2 mmol/L (3.6-5.0); TOTAL PROTEIN 8.2 g/dL (6.3-8.2)
[2019-12-19 11:21] LABS: ANION GAP 10 (5-19)
[2019-12-19 11:33] LABS: FOLATE 5.92 ng/mL (>2.76)
== END ==
LOC: CCC 09:00
DX: D64.9 Anemia, unspecified (principal); Z09 Encounter for follow-up examination after completed treatment for conditions other than malignant neoplasm; Z87.01 Personal history of pneumonia (recurrent)
CPT/HCPCS: 36415; 71046; 80053; 82607; 82728; 82746; 83036; 83540; 83550; 85025

== ENCOUNTER → 2020-08-07 | Outpatient (CLI) | payer OTHER ==
[2020-08-07 10:55] LABS: APPEARANCE,URINE SLIGHTLY-CLOUDY; BILIRUBIN,URINE NEGATIVE (NEGATIVE); COLOR,URINE STRAW; GLUCOSE, URINE >=500 mg/dL (NEGATIVE); KETONES,URINE TRACE mg/dL (NEGATIVE); LEUKOCYTE ESTERASE,URINE TRACE (NEGATIVE); NITRITE,URINE NEGATIVE (NEGATIVE); PROTEIN,URINE NEGATIVE (NEGATIVE); URINE SPECIFIC GRAVITY 1.021; UROBILINOGEN,URINE NEGATIVE mg/dL (<2.0)
[2020-08-07 10:59] LABS: ABSOLUTE EOSINOPHILS # (AUTO) 0.1 10^3/uL (0.0-0.6); ABSOLUTE LYMPHOCYTES (AUTO) 1.8 10^3/uL (0.5-4.7); ABSOLUTE MONOCYTES (AUTO) 0.2 10^3/uL (0.1-1.4); ABSOLUTE NEUT (AUTO) 2.8 10^3/uL (1.7-8.2); BASOPHILS % (AUTO) 0.7 % (0-2); HEMATOCRIT 43.1 % (36.0-47.0); LYMPHOCYTES % (AUTO) 36.8 % (13-45); MEAN CORPUSCULAR HEMOGLOBIN 29.1 pg (27.0-33.4); MEAN CORPUSCULAR HGB CONC 34.9 g/dL (32.0-36.0); MEAN CORPUSCULAR VOLUME 83 fl (80-97); PLATELET COUNT 233 10^3/uL (150-450); RED BLOOD COUNT 5.16 10^6/uL (3.72-5.28); SEGMENTED NEUTROPHILS % (AUTO) 56.5 % (42-78); TOTAL CELLS COUNTED % (AUTO) 100 %; WHITE BLOOD COUNT 4.9 10^3/uL (4.0-10.5)
[2020-08-07 11:17] LABS: UR PRO/CREAT RATIO RESULT 0.7 mg/mg (0.0-0.2); URINE CREATININE 24.3 mg/dL (15-278); URINE PROTEIN 16.9 mg/dL (<12)
[2020-08-08 09:43] LABS: ALBUMIN 4.4 g/dL (3.5-5.0); ALKALINE PHOSPHATASE 150 U/L (38-126); ANION GAP 11 (5-19); ASPARTATE AMINO TRANSFERASE 21 U/L (14-36); BILIRUBIN,DIRECT 0.4 mg/dL (0.0-0.4); BILIRUBIN,TOTAL 0.6 mg/dL (0.2-1.3); BLOOD UREA NITROGEN 25 mg/dL (7-20); CALCIUM 10.4 mg/dL (8.4-10.2); CARBON DIOXIDE 29 mmol/L (22-30); CHLORIDE 95 mmol/L (98-107); POTASSIUM 4.4 mmol/L (3.6-5.0); TOTAL PROTEIN 7.8 g/dL (6.3-8.2); TRIGLYCERIDES 285 mg/dL (<150)
[2020-08-08 09:53] LABS: DIRECT LDL 224 mg/dL (<100)
[2020-08-08 10:09] LABS: CHOLESTEROL 332.93 mg/dL (0-200)
[2020-08-08 10:44] LABS: GLUCOSE 458 mg/dL (75-110)
== END ==
LOC: CCC 09:14
PROVIDERS: ATTEND Family Medicine
DX: Z13.9 Encounter for screening, unspecified (principal)
CPT/HCPCS: 36415; 80053; 80061; 81001; 82570; 83036; 84156; 84443; 85025

== ENCOUNTER 2020-08-08 11:18 | Emergency (ER) | payer OTHER ==
[2020-08-08 11:31] VITALS: BP 173/74
--- NOTE | 2020-08-08 11:41 | ER Document Report ---
ED Medical Screen (RME) - General Chief Complaint: High Blood Sugar Stated Complaint: HIGH BLOODSUGAR - DR REFERRED Time Seen by Provider: 08/08/20 11:37 Primary Care Provider: [facility] [Primary Care Provider] - Follow up as needed Mode of Arrival: Ambulatory Information source: Patient Notes: 55-year-old female patient with history of diabetes presenting to the emergency department chief complaint of elevated blood glucose. Patient reports she had labs drawn at her doctor's office this morning. She states shortly after she left the office they called her and told her her glucose was over 500 and she needed to come to the emergency department patient reports that she feels slightly dizzy and has had a little bit of nausea and one episode of diarrhea last night. She denies any other symptoms. She does not take insulin. She reports she takes oral medications and she ran out as of this morning. Patient alert, oriented, no acute distress noted. Lung sounds clear and equal bilaterally. I have greeted and performed a rapid initial assessment of this patient. A comprehensive ED assessment and evaluation of the patient, analysis of test results and completion of the medical decision making process will be conducted by additional ED providers. I have specifically instructed the patient or family members with the patient to immediately return to any nursing staff should anything change in the patient's condition or with their chief complaint. TRAVEL OUTSIDE OF THE [place] IN LAST 30 DAYS: No - Related Data Allergies/Adverse Reactions: No Known Allergies Allergy (Verified 08/08/20 11:32) Home Medications: Metformin Past Medical History - Social History Chew tobacco use (# tins/day): No Drug Abuse: None - Past Medical History Cardiac Medical History: Reports: Hx Hypercholesterolemia, Hx Hypertension, Hx Heart Murmur Denies: Hx Coronary Artery Disease, Hx Heart Attack Pulmonary Medical History: Reports: Hx Bronchitis, Hx Pneumonia Denies: Hx Asthma, Hx COPD, Hx Tuberculosis Neurological Medical History: Reports: Hx Seizures - Told stress related, having started when her 2011. On Dilantin Endocrine Medical History: Reports: Hx Diabetes Mellitus Type 2. Denies: Hx Diabetes Mellitus Type 1, Hx Hyperthyroidism, Hx Hypothyroidism Renal/ Medical History: Denies: Hx Peritoneal Dialysis GI Medical History: Denies: Hx Cirrhosis, Hx Crohn's Disease, Hx Gas troesophageal Reflux Disease, Hx Hepatitis, Hx Ulcerative Colitis Musculoskeltal Medical History: Reports Hx Arthritis, Denies Hx Gout Skin Medical History: Denies Hx Eczema, Denies Hx Psoriasis Psychiatric Medical History: Reports: Hx Anxiety Denies: Hx Depression Infectious Medical History: Denies: Hx Hepatitis Past Surgical History: Reports: Hx Section, Hx Orthopedic Surgery - Right shoulder with hardware, Hx Tonsillectomy - Immunizations Immunizations up to date: Yes Hx Diphtheria, Pertussis, Tetanus Vaccination: Yes - 2015 Physical Exam - Vital signs Vitals: Temp Pulse Resp BP Pulse Ox 98.0 F 70 16 173/74 H 99 08/08/20 11:26 08/08/20 11:26 08/08/20 11:26 08/08/20 11:26 08/08/20 11:26 Course - Vital Signs Vital signs: Temp Pulse Resp BP Pulse Ox 98.0 F 70 16 173/74 H 99 08/08/20 11:26 08/08/20 11:26 08/08/20 11:26 08/08/20 11:26 08/08/20 11:26 Doctor's Discharge - Discharge Referrals: [facility] [Primary Care Provider] - Follow up as needed
[2020-08-08] MEDS ORDERED: NORMAL SALINE 1000 ML 1,000 ML IV ONE (11:43)
[2020-08-08 12:19] LABS: ABSOLUTE LYMPHOCYTES (AUTO) 1.9 10^3/uL (0.5-4.7); ABSOLUTE MONOCYTES (AUTO) 0.2 10^3/uL (0.1-1.4); ABSOLUTE NEUT (AUTO) 2.8 10^3/uL (1.7-8.2); BASOPHILS % (AUTO) 0.8 % (0-2); EOSINOPHILS % (AUTO) 0.9 % (0-6); HEMOGLOBIN 14.5 g/dL (12.0-15.5); LYMPHOCYTES % (AUTO) 37.5 % (13-45); MEAN CORPUSCULAR HEMOGLOBIN 28.8 pg (27.0-33.4); MEAN CORPUSCULAR HGB CONC 33.8 g/dL (32.0-36.0); MEAN CORPUSCULAR VOLUME 85 fl (80-97); MONOCYTES % (AUTO) 4.6 % (3-13); PLATELET COUNT 225 10^3/uL (150-450); RED BLOOD COUNT 5.04 10^6/uL (3.72-5.28); RED CELL DISTRIBUTION WIDTH 15.1 % (11.5-14.0); SEGMENTED NEUTROPHILS % (AUTO) 56.2 % (42-78); TOTAL CELLS COUNTED % (AUTO) 100 %; WHITE BLOOD COUNT 5.1 10^3/uL (4.0-10.5)
[2020-08-08 12:20] LABS: APPEARANCE,URINE SLIGHTLY-CLOUDY; BILIRUBIN,URINE NEGATIVE (NEGATIVE); COLOR,URINE STRAW; GLUCOSE, URINE >=500 mg/dL (NEGATIVE); KETONES,URINE NEGATIVE (NEGATIVE); LEUKOCYTE ESTERASE,URINE TRACE (NEGATIVE); NITRITE,URINE NEGATIVE (NEGATIVE); PROTEIN,URINE NEGATIVE (NEGATIVE); UROBILINOGEN,URINE NEGATIVE mg/dL (<2.0)
[2020-08-08 12:25] LABS: VENOUS BLOOD HCO3 30.4 mmol/L (20-32); VENOUS BLOOD PH 7.34 (7.30-7.42)
[2020-08-08 12:45] LABS: ALBUMIN 4.4 g/dL (3.5-5.0); ALKALINE PHOSPHATASE 148 U/L (38-126); ANION GAP 15 (5-19); ASPARTATE AMINO TRANSFERASE 16 U/L (14-36); BILIRUBIN,DIRECT 0.3 mg/dL (0.0-0.4); BILIRUBIN,TOTAL 0.5 mg/dL (0.2-1.3); BLOOD UREA NITROGEN 20 mg/dL (7-20); CALCIUM 9.9 mg/dL (8.4-10.2); CARBON DIOXIDE 26 mmol/L (22-30); CHLORIDE 91 mmol/L (98-107); POTASSIUM 4.5 mmol/L (3.6-5.0); TOTAL PROTEIN 7.4 g/dL (6.3-8.2)
[2020-08-08 12:53] LABS: GLUCOSE 575 mg/dL (75-110)
[2020-08-08] MEDS ORDERED: INSULIN REG, HUMAN 100 UNIT/ML 3 ML VIAL (PYX) IV ONE (13:08)
--- NOTE | 2020-08-08 14:50 | ER Document Report ---
ED General - General Chief Complaint: High Blood Sugar Stated Complaint: HIGH BLOODSUGAR - DR REFERRED Time Seen by Provider: 08/08/20 11:37 Primary Care Provider: [facility] [NO LOCAL MD] - Follow up as needed Mode of Arrival: Ambulatory Information source: Patient Notes: This 55-year-old woman presents to the emergency department with a history of diabetes mellitus, hypertension, and poor compliance. Apparently she has not taken her medications for some time for her blood sugar and also for her hypertension. Noted to have a glucose greater than 500 this morning and directed to come to the emergency department for further evaluation and treatme nt. She notes that she has had some increased thirst and increased urinary symptoms. She also notes that her prescriptions need to be refilled. TRAVEL OUTSIDE OF THE [place] IN LAST 30 DAYS: No - Related Data Allergies/Adverse Reactions: No Known Allergies Allergy (Verified 08/08/20 11:32) Home Medications: Metformin Past Medical History - General Information source: Patient - Social History Smoking Status: Never Smoker Chew tobacco use (# tins/day): No Drug Abuse: None Family History: CVA, DM, Hyperlipidemia, Hypertension, Malignancy - Father, Thyroid Disfunction - Past Medical History Cardiac Medical History: Reports: Hx Hypercholesterolemia, Hx Hypertension, Hx Heart Murmur Denies: Hx Coronary Artery Disease, Hx Heart Attack Pulmonary Medical History: Reports: Hx Bronchitis, Hx Pneumonia Denies: Hx Asthma, Hx COPD, Hx Tuberculosis Neurological Medical History: Reports: Hx Seizures - Told stress related, having started when her 2011. On Dilantin Endocrine Medical History: Reports: Hx Diabetes Mellitus Type 2. Denies: Hx Diabetes Mellitus Type 1, Hx Hyperthyroidism, Hx Hypothyroidism Renal/ Medical History: Denies: Hx Peritoneal Dialysis GI Medical History: Denies: Hx Cirrhosis, Hx Crohn's Disease, Hx Gastroesophageal Reflux Disease, Hx Hepatitis, Hx Ulcerative Colitis Musculoskeletal Medical History: Reports Hx Arthritis, Denies Hx Gout Skin Medical History: Denies Hx Eczema, Denies Hx Psoriasis Psychiatric Medical History: Reports: Hx Anxiety Denies: Hx Depression Infectious Medical History: Denies: Hx Hepatitis Past Surgical History: Reports: Hx Section, Hx Orthopedic Surgery - Right shoulder with hardware, Hx Tonsillectomy - Immunizations Immunizations up to date: Yes Hx Diphtheria, Pertussis, Tetanus Vaccination: Yes - 2015 Review of Systems - Review of Systems Notes: Constitutional: Negative for fever. HENT: Negative for sore throat. Eyes: Negative for visual changes. Cardiovascular: Negative for chest pain. Respiratory: Negative for shortness of breath. Gastrointestinal: Negative for abdominal pain, vomiting or diarrhea. Genitourinary: Polyuria Musculoskeletal: Negative for back pain. Skin: Negative for rash. Neurological: Negative for headaches, weakness or numbness. 10 point ROS negative except as marked above and in HPI. Physical Exam - Vital signs Vitals: Temp Pulse Resp BP Pulse Ox 98.0 F 70 16 173/74 H 99 08/08/20 11:26 08/08/20 11:26 08/08/20 11:08/08/20 11:08/08/20 11:26 - Notes Notes: PHYSICAL EXAMINATION: Physical Exam: General: Well-nourished well-developed 55-year-old female in no acute distress HEENT: NC/AT, pupils equal round and reactive to light, MM moist,nares clear, oropharynx clear, airway patent Neck: supple, no adenopathy, no masses. Good range of motion Lungs: clear, no wheezing, no rales no rhonchi CVS: Regular rate and rhythm no murmur gallop or rub Abdomen: Soft, active, nontender, no masses, no hepatosplenomegaly Ext: No edema, clubbing or cyanosis. Neuro: Alert and responsive, moving all 4 extremities on command, cranial nerves intact, no focal findings Skin: Intact no open lesions, no rash PSYCH: Normal mood, normal affect. Course - Vital Signs Vital signs: Temp Pulse Resp BP Pulse Ox 98.0 F 70 16 173/74 H 99 08/08/20 11:26 08/08/20 11:26 08/08/20 11:26 08/08/20 11:08/08/20 11:26 - Laboratory Result Diagrams: 08/08/20 12:03 08/08/20 12:03 Laboratory results interpreted by me: 08/08/20 08/08/20 08/08/20 11:41 12:03 12:03 RDW 15.1 H Sodium 132.1 L Chloride 91 L Glucose 575 H* POC Glucose > 550 H* Alkaline Phosphatase 148 H Urine Glucose (UA) Ur Leukocyte Esterase 08/08/20 08/08/20 12:03 14:32 RDW Sodium Chloride Glucose POC Glucose 348 H Alkaline Phosphatase Urine Glucose (UA) >=500 H Ur Leukocyte Esterase TRACE H 08/08/20 14:48 I have reviewed laboratory data and used this information for the treatment decisions regarding the patient. - EKG Interpretation by Me Rate: Normal - EKG interpreted by Dr. Pelaez: Normal sinus rhythm, rate 70 b/m, UT interval 132 ms QT interval 456 ms, normal axis, LBBB, no acute ischemic find ings, Discharge - Discharge Clinical Impression: Poorly controlled diabetes mellitus, Essential hypertension, Non compliance with medical treatment, Diabetes mellitus type 2 in nonobese Condition: Good Disposition: HOME, SELF-CARE Instructions: High Blood Pressure ([facility]) Additional Instructions: You were seen in the emergency department today with blood pressure and hypertension which your being poorly controlled. You were given IV medications to lower of the blood sugar and prescription's are being sent to your pharmacy to restart the Metformin and lisinopril. Please take your medications daily and follow-up with your primary care doctor for adjustments that may need to be made. If you are having further difficulties or other concerns you may return to the emergency department for further treatment if needed. HOME CARE INSTRUCTIONS & INFORMATION: Thank you for choosing us for your medical needs. We hope you're satisfied with the care you received. After you leave, you must properly care for your problem and, at the same time, observe its progress. Any condition can change. Some illnesses can change rapidly over hours or days. If your condition worsens, return to the Emergency Department or see your physician promptly. ABOUT YOUR X-RAYS AND EKG'S: If you had an EKG or X-rays taken, they have been read by the Emergency Physician. The X-rays and EKG's will also be read by a Radiologist or Furniture Assembly Supervisor within 24 hours. If discrepancies are noted, you will be notified by telephone. Please be certain the ED has a correct telephone number & address where you can be reached. Also, realize that some fractures or abnormalities do not show up on initial X-rays. If your symptoms continue, see your physician. ABOUT YOUR LABORATORY TEST: If you had laboratory tests, the results have been reviewed by the Emergency Physician. Some test results (for example cultures) may not be available for several days. You will be contacted if any test result shows you need additional treatment. Please be certain the ED has a correct telephone number and address where you can be reached. ABOUT YOUR MEDICATIONS: You will receive instructions on how to take your medicine on the prescription label you receive. Additional information may be provided by the Pharmacy. If you have questions afterwards, call the ED for clarification or further instructions. Some prescribed medications may cause dr varma. Do not perform tasks such as driving a car or operating machinery without consulting your Pharmacist. If you feel you need a refill of pain medication, your condition will need re-evaluation. Please do not call for a refill of any medication. ABOUT YOUR SIGNATURE: Signature of this document acknowledges to followin. Understanding that you received emergency treatment and that you may be released before al medical problems are known or treated. Please be certain the ED has a correct phone number & address where you can be reached. 2. Acknowledgement that you will arrange for follow-up care as recommended. 3. Authorization for the Emergency Physician to provide information to your follow-up Physician in order to maximize your care. AT ANY TIME, IF YOUR SYMPTOMS CHANGE SIGNIFICANTLY OR WORSEN OR YOU DEVELOP NEW SYMPTOMS, RETURN TO THE EMERGENCY DEPARTMENT IMMEDIATELY FOR RE-EVALUATION. OUR GOAL IS TO PROVIDE EXCELLENT MEDICAL CARE! WE HOPE THAT WE HAVE MET YOUR EXPECTATIONS DURING YOUR EMERGENCY DEPARTMENT VISIT AND THAT YOU FEEL YOU HAVE RECEIVED EXCELLENT CARE! Prescriptions: Metformin HCl [Glucophage 500 mg Tablet] 500 mg PO BIDACBS #60 tab Lisinopril 20 mg PO DAILY #30 tablet [facility]: [facility] [NO LOCAL MD] - Follow up as needed
--- NOTE | 2020-08-08 18:02 | EKG REPORT ---
SEVERITY:- ABNORMAL ECG - SINUS RHYTHM LEFT BUNDLE BRANCH BLOCK : Confirmed by: Josue Storm MD 08-Aug-2020 18:01:06
== END 2020-08-08 15:20 | disposition home or self-care (01) ==
LOC: ER 11:18
DX: E11.65 Type 2 diabetes mellitus with hyperglycemia (principal); T38.3X6A Underdosing of insulin and oral hypoglycemic [antidiabetic] drugs, initial encounter; I10 Essential (primary) hypertension; T50.906A Underdosing of unspecified drugs, medicaments and biological substances, initial encounter; Z91.14 Patient's other noncompliance with medication regimen; I44.7 Left bundle-branch block, unspecified
CPT/HCPCS: 93005; 99284; 96361; 96374; 36415; 82962; 85025; 87070; 81001; 82803; 93010; J1815; J7030